=== PATIENT | female | born 1990 | race Caucasian/White ===

== ENCOUNTER → 2018-04-11 13:35 | Outpatient (CLI) | payer BC, SELFPAY ==
--- NOTE | 2018-04-11 13:47 | XR_ITS ---
EXAM: XR thoracic spine 3V HISTORY: Mid back pain, pain between the shoulder blades ITS.REASON: THORACIC SPINE PAIN, OBESITY Comparison: None FINDINGS: Normal alignment. No fracture or dislocation. No lytic or blastic change. No significant degenerative change. The disc spaces are preserved. IMPRESSION: Negative thoracic spine
== END ==
PROVIDERS: PCP Nurse Practitioner Family; Visit Provider Nurse Practitioner Family
DX: M54.6 Pain in thoracic spine (principal); E66.9 Obesity, unspecified
CPT/HCPCS: 72072

== ENCOUNTER 2018-10-07 15:53 | Outpatient (CLI) | payer BC, SELFPAY ==
[2018-10-07 16:02] VITALS: BP 118/80; PULSE 89; RESP 18; TEMP 36.5; O2SAT 98; BMI 38.4
== END 2018-10-07 16:35 | disposition home or self-care (01) ==
LOC: OBOUT 15:55 → OB 15:56
PROVIDERS: PCP Family Medicine; Visit Provider Obstetrics & Gynecology
DX: O36.8120 Decreased fetal movements, second trimester, not applicable or unspecified (principal); Z3A.24 24 weeks gestation of pregnancy; R51 Headache
CPT/HCPCS: 59025

== ENCOUNTER → 2018-10-30 13:52 | Outpatient (CLI) | payer BC, SELFPAY ==
[2018-10-30 15:13] LABS: Glucose 1 Hour 118 mg/dL (74-106)
== END ==
PROVIDERS: Visit Provider Obstetrics & Gynecology
DX: Z34.90 Encounter for supervision of normal pregnancy, unspecified, unspecified trimester (principal)
CPT/HCPCS: 36415

== ENCOUNTER 2018-11-08 15:27 | Outpatient (CLI) | payer BC, SELFPAY ==
[2018-11-08 15:44] VITALS: BP 121/84; PULSE 101; RESP 20; TEMP 36.7; O2SAT 100; BMI 41.5
[2018-11-08 15:57] LABS: Microscopic, Urine URINE MICROSCOPIC (MICROSCOPIC)
[2018-11-08 15:59] LABS: Appearance,Urine CLEAR (Clear); Bilirubin,Urine Negative (Negative); Blood, Urine Negative (Negative); Color,Urine YELLOW (Yellow); Glucose,Urine (UA) Negative (Negative); Ketones,Urine TRACE (Negative); Leukocyte Esterase,Urine Negative (Negative); Nitrate,Urine Negative (Negative); Protein,Urine Negative (Negative); Specific Gravity, Urine 1.025 (1.005-1.030); Urobilinogen,Urine 0.2 EU/dl (0.2)
[2018-11-08 16:07] LABS: Amphetamine/Metha Screen,Urine Negative ng/mL (<1000); Barbiturates Screen,Urine Negative ng/mL (<200); Benzodiazepines Screen,Urine Negative ng/mL (<200); Cannabinoid Screen,Urine Negative ng/mL (<50); Cocaine Screen,Urine Negative ng/mL (<300); Methadone Screen,Urine Negative ng/mL (<300); Opiate Screen,Urine Negative ng/mL (<300); Phencyclidine Screen,Urine Negative ng/mL (<25)
[2018-11-08 16:10] LABS: Bacteria,Urine 1+ /lpf; Mucus,Urine 1+ /lpf
--- NOTE | 2018-11-08 16:22 | ECG_ITS ---
APPROVED REPORT Exam: Resting ECG HR:96 bpm ECG Measurements Heart Rate 96 AXES CO 134 P 22 QRSd 68 QRS 12 QT 340 T 14 QTc 429 <Conclusion> Normal sinus rhythm Minimal voltage criteria for LVH, may be normal variant Borderline ECG Electronically signed by : Jaylen Chaudhary, 11/09/2018 15:36:48
== END 2018-11-08 16:30 | disposition home or self-care (01) ==
LOC: OBOUT 15:36 → OB 15:36
PROVIDERS: PCP Family Medicine; Visit Provider Obstetrics & Gynecology
DX: O36.8390 Maternal care for abnormalities of the fetal heart rate or rhythm, unspecified trimester, not applicable or unspecified (principal); Z3A.29 29 weeks gestation of pregnancy
CPT/HCPCS: 59025; 80305; 81001; 87086; 93005

== ENCOUNTER → 2018-11-13 13:53 | Outpatient (CLI) | payer BC, SELFPAY ==
--- NOTE | 2018-11-13 13:57 | XR_ITS ---
PROCEDURE: XR ANKLE WT BEARING RT MIN 3V CLINICAL INDICATION: fracture/dislocation Follow-up fracture/pain COMPARISON: XR ANKLE RT MIN 3V from 10/15/2018 FINDINGS: No change in the minimally distracted avulsion fracture at the tip of the lateral malleolus. Soft tissue swelling appears somewhat less compared to the previous exam. IMPRESSION: Decreased soft tissue swelling otherwise no change in the minimally distracted avulsion fracture at the tip of the lateral malleolus. Fracture line is still visible Dictated by: Hai Thomas MD 11/13/2018 17:38 Electronically signed by Hai Thomas MD in [facility] 11/13/2018 17:38
== END ==
PROVIDERS: PCP Ophthalmology; Visit Provider Podiatrist
DX: S82.61XA Displaced fracture of lateral malleolus of right fibula, initial encounter for closed fracture (principal)
CPT/HCPCS: 73610

== ENCOUNTER → 2018-12-01 15:58 | Outpatient (CLI) | payer BC, SELFPAY ==
[2018-12-01 16:19] LABS: Basophils # 0.1 K/mm3 (0-0.2); Basophils % 0.5 % (0.1-2.0); Eosinophils # 0.3 K/mm3 (0.0-0.4); Eosinophils % 3.2 % (0.1-12.0); Hematocrit 37.1 % (37.0-47.0); Hemoglobin 11.4 g/dL (12.2-16.2); Lymphocytes # 2.7 K/mm3 (0.7-4.5); Lymphocytes % 24.9 % (10-50); Mean Corpuscular HGB Conc 30.8 g/dL (31.8-35.4); Mean Corpuscular Hemoglobin 27.2 pg (27.0-31.2); Mean Corpuscular Volume 88.4 fl (81-99); Mean Platelet Volume 12.3 fl (7.4-10.4); Monocytes # 0.5 K/mm3 (0.1-1.0); Monocytes % 4.2 % (1.7-9.3); Neutrophils # 7.2 K/mm3 (1.8-7.8); Neutrophils % 67.2 % (37.0-80.0); Platelet Count 171 K/mm3 (142-424); Red Cell Distribution Width 13.9 % (11.5-17.5); White Blood Count 10.7 K/mm3 (4.8-10.8)
[2018-12-01 17:11] LABS: Fibrinogen 500 mg/dL (204-500); Prothrombin Time 9.4 seconds (9.4-11.8)
[2018-12-01 17:23] LABS: D-Dimer 802 ng/mL (0-400)
[2018-12-01 18:32] LABS: Alanine Aminotransferase 42 U/L (12-78); Anion Gap 14.1 mEq/L (5-15); Aspartate Amino Transferase 27 U/L (15-37); Blood Urea Nitrogen 8 mg/dL (7-18); Calcium 8.4 mg/dL (8.5-10.1); Carbon Dioxide 23 mmol/L (21.0-32.0); Chloride 105 mmol/L (98-107); Creatinine,Serum 0.49 mg/dL (0.55-1.02); Estimated Glomerular Filt Rate 149 ml/min (>60); GFR (African American) 181 ML/MIN (>60); Glucose 86 mg/dL (74-106); Potassium 4.1 mmoL/L (3.5-5.1); Sodium 138 mmol/L (136-145); Uric Acid 2.9 mg/dL (2.6-7.2)
== END ==
PROVIDERS: Visit Provider Obstetrics & Gynecology
DX: Z34.90 Encounter for supervision of normal pregnancy, unspecified, unspecified trimester (principal)
CPT/HCPCS: 36415; 80048; 84450; 84460; 84550; 85025; 85378; 85384; 85610; 85730

== ENCOUNTER → 2018-12-06 10:38 | Outpatient (CLI) | payer BC, SELFPAY ==
[2018-12-06 16:00] LABS: Total Protein 24 Hour,Urine 285 mg/24 hr (40-90); Total Volume,Urine 1500 mL (600-1600)
== END ==
PROVIDERS: Visit Provider Obstetrics & Gynecology
DX: Z34.90 Encounter for supervision of normal pregnancy, unspecified, unspecified trimester (principal)
CPT/HCPCS: 84155

== ENCOUNTER → 2018-12-11 11:21 | Outpatient (CLI) | payer BC, SELFPAY | PROVIDERS: Visit Provider Obstetrics & Gynecology | DX: Z34.90 Encounter for supervision of normal pregnancy, unspecified, unspecified trimester (principal) | CPT/HCPCS: 86403 ==

== ENCOUNTER 2018-12-16 14:22 | Inpatient (IN) ==
[2018-12-16 15:34] LABS: Basophils # 0.1 K/mm3 (0-0.2); Basophils % 0.6 % (0.1-2.0); Eosinophils # 0.3 K/mm3 (0.0-0.4); Eosinophils % 3.2 % (0.1-12.0); Hematocrit 36.6 % (37.0-47.0); Hemoglobin 12.2 g/dL (12.2-16.2); Lymphocytes # 2.8 K/mm3 (0.7-4.5); Lymphocytes % 25.4 % (10-50); Mean Corpuscular HGB Conc 33.3 g/dL (31.8-35.4); Mean Corpuscular Volume 85.6 fl (81-99); Mean Platelet Volume 13.2 fl (7.4-10.4); Monocytes # 0.5 K/mm3 (0.1-1.0); Monocytes % 4.3 % (1.7-9.3); Neutrophils # 7.3 K/mm3 (1.8-7.8); Neutrophils % 66.4 % (37.0-80.0); Platelet Count 143 K/mm3 (142-424); Red Blood Count 4.28 M/mm3 (4.20-5.40); Red Cell Distribution Width 13.4 % (11.5-17.5); White Blood Count 10.9 K/mm3 (4.8-10.8)
[2018-12-16 15:42] LABS: Anion Gap 12.6 mEq/L (5-15); Calcium 8.5 mg/dL (8.5-10.1); Uric Acid 3.4 mg/dL (2.6-7.2)
--- NOTE | 2018-12-16 16:01 | Progress Note ---
Internal Medicine - PN: Subj *Date: 12/16/18 *Time: 15:58 (This 28-year-old 3, para 2, Ab0 white female with 2 pre vious sections (both early and emergent due to PIH) presented to the office with signs and symptoms of preeclampsia. Her blood pressure was 150/100. She is 34-6/7 weeks today. She is complaining of lower abdominal pain, although contractions are not evident. Her cervix is 50% and closed, with the presenting vertex high. Bag of water is intact. She has been admitted for intravenous magnesium sulfate, steroids, PIH labs, and biophysical profile. Initial plan is to observe. Patient understands the possible need for early delivery.) Exam Vital signs and Labs for Last 24 Hours: Temp Pulse Resp BP Pulse Ox 98.5 F 99 H 18 134/72 97 12/16/18 14:51 12/16/18 14:51 12/16/18 14:51 12/16/18 14:51 12/16/18 14:51 Laboratory Results - last 24 hr 12/16/18 15:08: WBC 10.9 H, RBC 4.28, Hgb 12.2, Hct 36.6 L, MCV 85.6, MCH 28.5, MCHC 33.3, RDW 13.4, Plt Count 143, MPV 13.2 H, Neut % (Auto) 66.4, Lymph % (Auto) 25.4, [place] % (Auto) 4.3, Eos % (Auto) 3.2, Baso % (Auto) 0.6, Neut # (Auto) 7.3, Lymph # (Auto) 2.8, [place] # (Auto) 0.5, Eos # (Auto) 0.3, Baso # (Auto) 0.1 12/16/18 15:08: D-Dimer 950 H* 12/16/18 15:08: Sodium 139, Potassium 3.6, Chloride 107, Carbon Dioxide 23, Anion Gap 12.6, BUN 5 L, Creatinine 0.41 L, Estimated Creat Clear 320 H, Estimated GFR 183, Est GFR ( Amer) 222, Glucose 88, Uric Acid 3.4, Calcium 8.5, AST 24, ALT 41 I & O for Last 24 hours: Intake & Output 12/14/18 12/15/18 12/16/18 12/17/18 11:59 11:59 11:59 11:59 Weight 221 lb
[2018-12-16 16:22] LABS: Activated Partial Thrombo Time 27.5 seconds (23.6-34.0); INR 0.9 (0.9-1.1); Prothrombin Time 9.4 seconds (9.4-11.8)
[2018-12-16 20:57] LABS: Microscopic, Urine URINE MICROSCOPIC (MICROSCOPIC)
[2018-12-16 21:05] LABS: Appearance,Urine CLEAR (Clear); Bilirubin,Urine Negative (Negative); Blood, Urine Negative (Negative); Color,Urine YELLOW (Yellow); Glucose,Urine (UA) Negative (Negative); Ketones,Urine 2+ (Negative); Leukocyte Esterase,Urine Negative (Negative); PH,Urine 6.5 (5.0-8.5); Protein,Urine Negative (Negative); Specific Gravity, Urine >= 1.030 (1.005-1.030); Urobilinogen,Urine 0.2 EU/dl (0.2)
[2018-12-16 21:12] LABS: Bacteria,Urine Trace /lpf; WBC,Urine Occasional #/hpf (0-3)
[2018-12-16 21:19] LABS: Amphetamine/Metha Screen,Urine Negative ng/mL (<1000); Barbiturates Screen,Urine Negative ng/mL (<200); Benzodiazepines Screen,Urine Negative ng/mL (<200); Cannabinoid Screen,Urine Negative ng/mL (<50); Cocaine Screen,Urine Negative ng/mL (<300); Methadone Screen,Urine Negative ng/mL (<300); Opiate Screen,Urine Negative ng/mL (<300); Phencyclidine Screen,Urine Negative ng/mL (<25)
--- NOTE | 2018-12-17 09:03 | Progress Note ---
Internal Medicine - PN: Subj *Date: 12/17/18 *Time: 08:59 Exam Vital signs and Labs for Last 24 Hours: Temp Pulse Resp BP Pulse Ox 97.7 F 85 20 137/87 97 12/17/18 07:30 12/17/18 07:30 12/17/18 07:30 12/17/18 08:45 12/17/18 03:37 Laboratory Results - last 24 hr 12/16/18 15:08: WBC 10.9 H, RBC 4.28, Hgb 12.2, Hct 36.6 L, MCV 85.6, MCH 28.5, MCHC 33.3, RDW 13.4, Plt Count 143, MPV 13.2 H, Neut % (Auto) 66.4, Lymph % (Auto) 25.4, [place] % (Auto) 4.3, Eos % (Auto) 3.2, Baso % (Auto) 0.6, Neut # (Auto) 7.3, Lymph # (Auto) 2.8, [place] # (Auto) 0.5, Eos # (Auto) 0.3, Baso # (Auto) 0.1 12/16/18 15:08: PT 9.4, INR 0.90, APTT 27.5, Fibrinogen 500, D-Dimer 950 H* 12/16/18 15:08: Sodium 139, Potassium 3.6, Chloride 107, Carbon Dioxide 23, Anion Gap 12.6, BUN 5 L, Creatinine 0.41 L, Estimated Creat Clear 320 H, Estimated GFR 183, Est GFR ( Amer) 222, Glucose 88, Uric Acid 3.4, Calcium 8.5, AST 24, ALT 41 12/16/18 15:08: Blood Type O Positive, Antibody Screen Negative 12/16/18 15:08: Magnesium 1.5 12/16/18 20:40: Urine Opiates Screen Negative, Urine Methadone Screen Negative, Ur Barbituates Screen Negative, Ur Phencyclidine Scrn Negative, Ur Amphetamines Screen Negative, U Benzodiazepines Scrn Negative, Urine Cocaine Screen Negative, U Marijuana (THC) Screen Negative 12/16/18 20:50: Urine Color Yellow, Urine Appearance Clear, Urine pH 6.5, Ur Specific [place] >= 1.030, Urine Protein Negative, Urine Glucose (UA) Negative, Urine Ketones 2+, Urine Blood Negative, Urine Nitrate Negative, Urine Bilirubin Negative, Urine Urobilinogen 0.2, Ur Leukocyte Esterase Negative, Urine WBC Occasional, Ur Squamous Epith Cells 3-5, Urine Bacteria Trace 12/17/18 05:55: Magnesium 4.9 H D I & O for Last 24 hours: Intake & Output 12/14/18 12/15/18 12/16/18 12/17/18 11:59 11:59 11:59 11:59 Intake Total 1500 / 1500 Output Total 3000 / 3000 Balance -1500 / -1500 Weight 221 lb
--- OUTSIDE RECORDS SUMMARY | 2018-12-17 14:29 | External Medical Summary | Continuity of Care Document ---
:1990 Author Organization [facility] Address [address] [facility] [address] [place] [address] Phone Care Team Providers Name Role Phone Morales Attending Provider Mona Tran Primary Care Provider Chelita Attending Provider Soren Soto II Primary Care Provider Allergies, Adverse Reactions, Alerts No known allergies. Medications No known medications. Problems Active Problems Medical Problem Onset Date Status Avulsion fracture of lateral malleolus A ctive Procedures Procedure Date Performed Status Group B Streptococcus Screen (PRASANNA) December 11, 2018 compl eted US OB BPP w/Fet-Mat & S/D December 17, 2018 active XR ankle wt bearing RT min 3V November 13, 2018 completed XR ankle RT min 3V October 15, 2018 completed Relevant Diagnostic Tests and/or Laboratory Data Laboratory Results Test Date/Time Result Interpretation Reference Result Perfo rming Range Comment Site Urine Color September Yellow 2018 3:43pm Urine Color October Dark Yellow 2018 3:33pm Urine Color October 1:40pm Urine Color November Yellow 2018 3:37pm Urine Color November 1:54pm Urine E[place] G[place] Clear Appearance 2018 3:43pm Urine Janet Clear Appearance 2018 3:33pm Urine Janet Clear Appearance 2018 1:40pm Urine October Clear Appearance 2018 3:37pm Urine October Clear Appearance 2018 1:54pm Urine Glucose [place] Negative (UA) 2018 3:43pm Urine Glucose Janet Negative (UA) 2018 3:33pm Urine Glucose Janet Negative (UA) 2018 1:40pm Urine Glucose October Negative (UA) 2018 3:37pm Urine Glucose October Negative (UA) 2018 1:54pm Urine Bilirubin [place] negative 2018 3:43pm Urine Bilirubin Janet negative 2018 3:33pm Urine Bilirubin Janet negative 2018 1:40pm Urine Bilirubin October negative 2018 3:37pm Urine Bilirubin October negative 2018 1:54pm Urine Ketones [place] Negative 2018 mg/dL 3:43pm Urine Ketones Janet Negative 2018 mg/dL 3:33pm Urine Ketones Janet Negative 2018 mg/dL 1:40pm Urine Ketones October Negative 2018 mg/dL 3:37pm Urine Ketones October Negative 2018 mg/dL 1:54pm Urine Specific E[place] Gentry 1.015 [place] 2018 3:43pm Urine Specific Janet 1.030 [place] 2018 3:33pm Urine Specific Janet 1.020 [place] 2018 1:40pm Urine Specific October 1.015 [place] 2018 3:37pm Urine Specific October 1.015 [place] 2018 1:54pm Urine Blood E[place] negative 2018 3:43pm Urine Blood Janet negative 2018 3:33pm Urine Blood Janet negative 2018 1:40pm Urine Blood October negative 2018 3:37pm Urine Blood October negative 2018 1:54pm Urine pH E[place] 7.0 2018 3:43pm Urine pH Janet 6.0 2018 3:33pm Urine pH Janet 6.5 2018 1:40pm Urine pH October 7.0 2018 3:37pm Urine pH October 7.5 2018 1:54pm Urine Protein September Negative 2018 3:43pm Urine Protein October Negative 2018 3:33pm Urine Protein Janet Negative 2018 1:40pm Urine Protein October Negative 2018 3:37pm Urine Protein October Negative 2018 1:54pm Urine E[place] 0.2 Urobilinogen 2018 Dipstick 3:43pm Urine Janet 1 Urobilinogen 2018 Dipstick 3:33pm Urine Janet 0.2 Urobilinogen 2018 Dipstick 1:40pm Urine October 0.2 Urobilinogen 2018 Dipstick 3:37pm Urine October 0.2 Urobilinogen 2018 Dipstick 1:54pm Urine Nitrate [place] Negative 2018 3:43pm Urine Nitrate Janet Negative 2018 3:33pm Urine Nitrate Janet Negative 2018 1:40pm Urine Nitrate October Negative 2018 3:37pm Urine Nitrate October Negative 2018 1:54pm Urine Leukocyte [place] Negative Esterase 2018 3:43pm Urine Leukocyte Janet Negative Esterase 2018 3:33pm Urine Leukocyte Janet Negative Esterase 2018 1:40pm Urine Leukocyte October Negative Esterase 2018 3:37pm Urine Leukocyte October Negative Esterase 2018 1:54pm White Blood October 10.7 K/mm3 4.8-10.[address] 36 E Count 2018 3:59pm [place] [address] White Blood October 10.9 K/mm3 4.8-10.[address] 36 E Count 2018 3:08pm [place] [address] Red Blood Count November 4.20 M/mm3 4.20-5.[address] 36 E 2018 3:59pm [place] [address] Red Blood Count October 4.28 M/mm3 4.20-5.[address] 36 E 2018 3:08pm [place] [address] Hemoglobin October 11.4 g/dL 12.2-16.[address] 36 E 2018 3:59pm [place] [address] Hemoglobin October 12.2 g/dL 12.2-16.[address] 36 E 2018 3:08pm [place] [address] Hematocrit October 37.1 % 37.0-47.0 [place] [address] [place] [address] E 2018 3:59pm [place] [address] Hematocrit October 36.6 % 37.0-47.0 [facility], [address] [place] [address] E 2018 3:08pm [place] [address] Mean October 88.4 fl -99 [facility], [address] [place] [address] E Corpuscular 2018 Volume 3:59pm [place] [address] Mean October 85.6 fl -99 [facility], [address] [place] [address] E Corpuscular 2018 Volume 3:08pm [place] [address] Mean November 27.2 pg 27.0-31.2 [facility], [address] [place] [address] E Corpuscular 2018 Hemoglobin 3:59pm [place] [address] Mean November 28.5 pg 27.0-31.2 [facility], [address] [place] [address] E Corpuscular 2018 Hemoglobin 3:08pm [place] [address] Mean November 30.8 g/dL 31.8-35.4 [facility], [address] [place] [address] E Corpuscular 2018 Hemoglobin 3:59pm [place] [address] Concent Mean October 33.3 g/dL 31.8-35.4 [facility], [address] [place] [address] E Corpuscular 2018 Hemoglobin 3:08pm [place] [address] Concent Red Cell November 13.9 % 11.5-17.5 [facility], [address] [place] [address] E Distribution 2018 Width 3:59pm [place] [address] Red Cell October 13.4 % 11.5-17.5 [facility], [address] [place] [address] E Distribution 2018 Width 3:08pm [place] [address] Platelet Count November 171 K/mm3 142-424 [facility], [address] [place] [address] E 2018 3:59pm [place] [address] Platelet Count November 143 K/mm3 142-424 [facility], [address] [place] [address] E 2018 3:08pm [place] [address] Mean Platelet November 12.3 fl 7.4-10.4 [facility], [address] [place] [address] E Volume 2018 3:59pm [place] [address] Mean Platelet November 13.2 fl 7.4-10.4 [facility], [address] [place] [address] E Volume 2018 3:08pm [place] [address] Neutrophils (%) November 67.2 % 37.0-80.0 [facility], [address] [place] [address] E (Auto) 2018 3:59pm [place] [address] Neutrophils (%) November 66.4 % 37.0-80.0 [facility], [address] [place] [address] E (Auto) 2018 3:08pm [place] [address] Lymphocytes (%) November 24.9 % [address] [place] [address] E (Auto) 2018 3:59pm [place] [address] Lymphocytes (%) November 25.4 % [address] [place] [address] E (Auto) 2018 3:08pm [place] [address] Monocytes (%) November 4.2 % 1.7-9.3 [facility], [address] [place] [address] E (Auto) 2018 3:59pm [place] [address] Monocytes (%) November 4.3 % 1.7-9.3 [place] [address] E (Auto) 2018 3:08pm [place] [address] Eosinophils (%) November 3.2 % 0.1-12.0 [place] [address] E (Auto) 2018 3:59pm [place] [address] Eosinophils (%) November 3.2 % 0.1-12.0 [facility], [address] [place] [address] E (Auto) 2018 3:08pm [place] [address] Basophils (%) November 0.5 % 0.1-2.0 [place] [address] E (Auto) 2018 3:59pm [place] [address] Basophils (%) November 0.6 % 0.1-2.0 [facility], [address] [place] [address] E (Auto) 2018 3:08pm [place] [address] Neutrophils # November 7.2 K/mm3 1.8-7.8 [facility], [address] [place] [address] E (Auto) 2018 3:59pm [place] [address] Neutrophils # November 7.3 K/mm3 1.8-7.8 [facility], [address] [place] [address] E (Auto) 2018 3:08pm [place] [address] Lymphocytes # November 2.7 K/mm3 0.7-4.5 [facility], [address] [place] [address] E (Auto) 2018 3:59pm [place] [address] Lymphocytes # November 2.8 K/mm3 0.7-4.5 [facility], [address] [place] [address] E (Auto) 2018 3:08pm [place] [address] Monocytes # November 0.5 K/mm3 0.1-1.0 [facility], [address] [place] [address] E (Auto) 2018 3:59pm [place] [address] Monocytes # October 0.5 K/mm3 0.1-1.0 [facility], [address] [place] [address] E (Auto) 2018 3:08pm [place] [address] Eosinophils # November 0.3 K/mm3 0.0-0.4 [facility], [address] [place] [address] E (Auto) 2018 3:59pm [place] [address] Eosinophils # October 0.3 K/mm3 0.0-0.4 [facility], [address] [place] [address] E (Auto) 2018 3:08pm [place] [address] Basophils # October 0.1 K/mm3 0-0.2 [facility], [address] [place] [address] E (Auto) 2018 3:59pm [place] [address] Basophils # October 0.1 K/mm3 0-0.2 [facility], [address] [place] [address] E (Auto) 2018 3:08pm [place] [address] Prothrombin October 9.4 seconds 9.4-11.8 [facility], [address] [place] [address] E Time 2018 3:59pm [place] [address] Prothrombin November 9.4 seconds 9.4-11.8 [facility], [address] [place] [address] E Time 2018 3:08pm [place] [address] Prothromb Time November 0.90 0.9-1.1 [facility], [address] [place] [address] E International 2018 INDICATION Ratio 3:59pm [place] [address] INR RANGETherapy for DVT, PE, Atrial Fib, 2.0-3.0Prophy laxis for VTE.Therapy for Mechanical Heart Valve, 2.5-3.5Preven tion of Sytemic Emolism secondary to AMI. Prothromb Time November 0.90 0.9-1.1 [facility], [address] [place] [address] E International 2018 INDICATION Ratio 3:08pm [place] [address] INR RANGETherapy for DVT, PE, Atrial Fib, 2.0-3.0Prophy laxis for VTE.Therapy for Mechanical Heart Valve, 2.5-3.5Preven tion of Sytemic Emolism secondary to AMI. Activated November 28.0 23.6-34.0 [facility], [address] [place] [address] E Partial 2018 seconds Thromboplast 3:59pm [place] [address] Time Activated November 27.5 23.6-34.0 [facility], [address] [place] [address] E Partial 2018 seconds Thromboplast 3:08pm [place] [address] Time Fibrinogen November 500 mg/dL 204-500 [facility], [address] [place] [address] E 2018 3:59pm [place] [address] Fibrinogen November 500 mg/dL 204-500 [facility], [address] [place] [address] E 2018 3:08pm [place] [address] D-Dimer November 802 ng/mL 0-400 RESULTS [place] [address] E 2018 CALLED TO 3:59pm MORALES @BY [place] [address] Chantell Burnette at 1720 D-Dimer November 950 ng/mL 0-400 RESULTS [place] [address] [place] [address] 2018 CALLED TO 3:08pm [place] [address] JAME BOSCH @BY Elisa Christensen MLS at 1554 Urine Color October Yellow Yellow [facility], [address] [place] [address] 36 E 2018 8:50pm [place] [address] Urine October Clear Clear [facility], [address] [place] [address] E Appearance 2018 8:50pm [place] [address] Urine pH October 6.5 5.0-8.5 [facility], [address] [place] [address] 36 E 2018 8:50pm [place] [address] Urine Specific October >= 1.030 1.005-1.03 [facility], [address] [place] [address] E [place] 2018 0 8:50pm [place] [address] Urine Protein October Negative Negative [facility], [address] [place] [address] 36 E 2018 8:50pm [place] [address] Urine Glucose October Negative Negative [facility], [address] [place] [address] 36 E (UA) 2018 8:50pm [place] [address] Urine Ketones November 2+ Negative [facility], [address] [place] [address] 36 E 2018 8:50pm [place] [address] Urine Blood October Negative Negative [facility], [address] [place] [address] 36 E 2018 8:50pm [place] [address] Urine Nitrate October Negative Negative [facility], [address] [place] [address] 36 E 2018 8:50pm [place] [address] Urine Bilirubin October Negative Negative [facility], [address] [place] [address] 36 E 2018 8:50pm [place] [address] Urine October 0.2 EU/dl [facility], [address] [place] [address] 36 E Urobilinogen 2018 8:50pm [place] [address] Urine Leukocyte October Negative Negative [facility], [address] [place] [address] 36 E Esterase 2018 8:50pm [place] [address] Urine WBC October Occasional [facility], [address] [place] [address] 36 E 2018 #/hpf 8:50pm [place] [address] Urine Squamous October 3-5 #/hpf [facility], [address] [place] [address] E Epithelial 2018 Cells 8:50pm [place] [address] Urine Bacteria November Trace /lpf NONE [facility], [address] [place] [address] E 2018 8:50pm [place] [address] Urine Total November 1499 mL 600-1600 [facility], [address] [place] [address] E Volume 2018 8:30am [place] [address] Urine Total November 285 mg/24 40-90 [facility], [address] [place] [address] E Protein 24 Hour 2018 hr 8:30am [place] [address] Urine Total November 19.0 mg/dL 0.0-11.9 [facility], [address] [place] [address] E Protein 2018 8:30am [place] [address] Sodium Level November 138 mmol/L 136-145 [facility], [address] [place] [address] E 2018 3:59pm [place] [address] Sodium Level November 139 mmol/L 136-145 [facility], [address] [place] [address] E 2018 3:08pm [place] [address] Potassium Level November 4.1 mmoL/L 3.5-5.1 [facility], [address] [place] [address] E 2018 3:59pm [place] [address] Potassium Level November 3.6 mmoL/L 3.5-5.1 [facility], [address] [place] [address] E 2018 3:08pm [place] [address] Chloride Level November 105 mmol/L 98-107 [facility], [address] [place] [address] E 2018 3:59pm [place] [address] Chloride Level November 107 mmol/L 98-107 [facility], [address] [place] [address] E 2018 3:08pm [place] [address] Carbon Dioxide November 23 mmol/L 21.0-32.0 [facility], [address] [place] [address] E Level 2018 3:59pm [place] [address] Carbon Dioxide November 23 mmol/L 21.0-32.0 [facility], [address] [place] [address] E Level 2018 3:08pm [place] [address] Anion Gap November 14.1 mEq/L 07-02 [facility], [address] [place] [address] E 2018 3:59pm [place] [address] Anion Gap November 12.6 mEq/L 07-02 [facility], [address] [place] [address] 36 E 2018 3:08pm [place] [address] Blood Urea October 8 mg/dL 09-04 [facility], [address] [place] [address] E Nitrogen 2018 3:59pm [place] [address] Blood Urea October 5 mg/dL 09-04 [facility], [address] [place] [address] E Nitrogen 2018 3:08pm [place] [address] Creatinine October 0.49 mg/dL 0.55-1.02 [facility], [address] [place] [address] E 2018 3:59pm [place] [address] Creatinine October 0.41 mg/dL 0.55-1.02 [facility], [address] [place] [address] E 2018 3:08pm [place] [address] Estimated October 320 mL/min 0-300 [facility], [address] [place] [address] E Creatinine 2018 Clearance 3:08pm [place] [address] Estimated GFR November 181 ML/MIN >59 [facility], [address] [place] [address] E ( 2018 Honduran) 3:59pm [place] [address] Estimated GFR November 222 ML/MIN >59 [facility], [address] [place] [address] E ( 2018 Honduran) 3:08pm [place] [address] Estimat October 149 ml/min >59 [facility], [address] [place] [address] E Glomerular 2018 Filtration Rate 3:59pm [place] [address] Estimat October 183 ml/min >59 [facility], [address] [place] [address] E Glomerular 2018 Filtration Rate 3:08pm [place] [address] Glucose Level October 86 mg/dL 74-106 [facility], [address] [place] [address] E 2018 3:59pm [place] [address] Glucose Level November 88 mg/dL 74-106 [facility], [address] [place] [address] E 2018 3:08pm [place] [address] Glucose 1 Hour October 118 mg/dL 74-106 [facility], [address] [place] [address] 36 E 2018 1:53pm [place] [address] Uric Acid November 2.9 mg/dL 2.6-7.2 [facility], [address] [place] [address] E 2018 3:59pm [place] [address] Uric Acid November 3.4 mg/dL 2.6-7.2 [facility], [address] [place] [address] E 2018 3:08pm [place] [address] Calcium Level November 8.4 mg/dL 8.5-10.1 [facility], [address] [place] [address] E 2018 3:59pm [place] [address] Calcium Level November 8.5 mg/dL 8.5-10.1 [facility], [address] [place] [address] 36 E 2018 3:08pm [place] [address] Magnesium Level November 4.9 mg/dL 1.4-2.2 Delta: 1.5 on [facility], [address] [place] [address] 36 E 201812/16/18-1508 5:55am [place] [address] Aspartate Amino October 27 U/L [facility], [address] [place] [address] E Transf 2018 (AST/SGOT) 3:59pm [place] [address] Aspartate Amino November 24 U/L [facility], [address] [place] [address] 36 E Transf 2018 (AST/SGOT) 3:08pm [place] [address] Alanine November 42 U/L [facility], [address] [place] [address] E Aminotransferas 2018 e (ALT/SGPT) 3:59pm [place] [address] Alanine November 41 U/L [facility], [address] [place] [address] E Aminotransferas 2018 e (ALT/SGPT) 3:08pm [place] [address] Urine Opiates October Negative [facility], [address] [place] [address] E Screen 2018 ng/mL 8:40pm [place] [address] Urine October Negative [facility], [address] [place] [address] 36 E Barbituates 2018 ng/mL Screen 8:40pm [place] [address] Urine November Negative [facility], [address] [place] [address] 36 E Phencyclidine 2018 ng/mL Screen 8:40pm [place] [address] Urine November Negative [facility], [address] [place] [address] 36 E Amphetamines 2018 ng/mL Screen 8:40pm [place] [address] Urine Methadone November Negative [facility], [address] [place] [address] E Screen 2018 ng/mL 8:40pm [place] [address] Urine November Negative [facility], [address] [place] [address] E Benzodiazepines 2018 ng/mL Screen 8:40pm [place] [address] Urine Cocaine November Negative [facility], [address] [place] [address] E Screen 2018 ng/mL 8:40pm [place] [address] Urine Marijuana November Negative [facility], [address] [place] [address] E (THC) Screen 2018 ng/mL 8:40pm [place] [address] Microbiology Results Procedure Source Result Collection Result Result Performin g Date/Time Date/Time Comment Site Group B Vaginal Negative for December 11November [facility], [address] [place] [address] E Streptococcus Group B 2018 10:11am 2018 Screen (PRASANNA) Streptococcu 6:49am [place] [address] s. Diagnostic Imaging Reports Report Dictated Date/Time Dictated By Status Radiology Report October 15, 2018 7:50pm Hai Thomas MD comple [address] [place] [address] XRay R eport Sig xavi Patient: Carissa Cruz R#: [id number] : 1990 Acct:[id number] Age/Sex: 28 / F ADM Date: 9 Loc: [facility] Attending Dr: Ordering Physician: Danisha Lindsey APRN Date of Service: 10/15/18 Procedure(s): XR ankle RT min 3V Accession Number(s): [id number] cc: Hai Thomas MD; Livan Tran MD~ PROCEDURE: XR ANKLE RT MIN 3V CLINICAL INDICATION: fall Posttraumatic pain COMPARISON: No exams were available fo r comparison FINDINGS: Minimally displaced avulsion fracture i nvolves the tip of the lateral malleolus. There is 2 mm distraction o f the distal fracture fragment with overlying soft tissue swelling. IMPRESSION: Minimally distracted avulsion fracture at the tip of the lateral malleolus Dictated by: Hai Thomas MD 10/16/19 19 20:29 Signed by: <Electronically signed by Hai Thomas MD in [place]> 10/15/2018 20:29 Radiology Report November 13, 2018 2:07pm Hai Thomas MD [facility] [address] [place] [facility] [address] [place] [address] XRay R eport Sig xavi Patient: Carissa Cruz#: [id number] : 1990 Acct:[id number] Age/Sex: 28 / F ADM Date: 9 Loc: RAD Attending Dr: Lu Merlos DPM Ordering Physician: Lu Merlos DPM Date of Service: 11/13/18 Procedure(s): XR ankle wt bearing RT min 3V Accession Number(s): [id number] cc: Hai Thomas MD; John Soto II, MD~ PROCEDURE: XR ANKLE WT BEARING RT MIN 3V CLINICAL INDICATION: fracture/dislocat ion Follow-up fracture/pain COMPARISON: XR ANKLE RT MIN 3V from FINDINGS: No change in the minimally distracted a vulsion fracture at the tip of the lateral malleolus. Soft tissue swe lling appears somewhat less compared to the previous exam. IMPRESSION: Decreased soft tissue swelling otherwis e no change in the minimally distracted avulsion fracture at the tip of the lateral malleolus. Fracture line is still visible Dictated by: Hai Thomas MD 11/13/2018 17:38 Electronically signed by Hai Thomas in [place] 11/13/2018 17:38 Health Concerns Concerns PIH ANTEPARTUM Advance Directives Advance Directive Response Recorded Date/Time Does the patient have an advanced directive on No December 16, 2018 1:53pm file? Living Will No December 16, 2018 1 :53pm Does the patient have an advanced directive on No December 11, 2018 10:17am file? Living Will No December 11, 2018 1 0:17am Does the patient have an advanced directive on No October 28, 2018 3:36pm file? Living Will No October 28, 2018 3:36pm Does the patient have an advanced directive on No October 07, 2018 3:51pm file? Living Will No October 07, 2018 3: 51pm Does the patient have an advanced directive on No November 13, 2018 3:30pm file? Living Will No November 13, 2018 3:30pm Chief Complaint and Reason for Visit Chief Complaint NST right ankle ao fell in hole 3:00 10/15/2018 Ankle injury LAB WORK NST Due Date 01/21 rapid hear t rate, hotflashes Fracture/dislocation follow- up RT ANKLE WT BEARING, 3V, AO 10/15/18 LAB WORK LAB WORK LAB WORK nst, 35wks nst, 35wks Encounters Encounter Location(s) Arrival/Admit Date Discharge/Depart Date Provider(s) Departed [facility] Physician October 07, 2018 October 07, 2018 Giovani Nielsen Physician/[facility]-Just for 3:36pm 3:48pm MD vasquez Office Susan Visit Registered [facility] Physician October 07, 2018 October 07, 2018 Giovani Nielsen Inpatient Group-Just for 3:53pm 4:35pm MD Davis Departed [facility] Physician October 15, 2018 October 15, 2018 null Emergency Group-Urgent 7:28pm 8:33pm Treatment Center Departed [facility] Physician October 17, 2018 October 17, 2018 Alaina Merlos , Physician/[facility]-Podiatry 7:56am 10:28am DPM christ[facility] Visit Departed [facility] Physician October 28, October 28, 2018 Sebastien Nielsen Physician/[facility]Just for 2018 3:25pm 3:36pm MD vasquez Office Susan Visit Registered [facility] Physician October 30, Hardeep martinez , Clinical Group-Laboratory 2018 1:52pm MD Registered [facility] Physician November 08, November 08, 2018 Sebastien Nielsen Inpatient Group-Just for 2019 3:27pm 4:30pm MD Davis Departed [facility] Physician November 11, November 11, 2018 Sebastien Nielsen Physician/[facility]-Just for 2019 1:30pm 2:02pm MD christina Office [facility] Visit Departed [facility] Physician November 13, November 13, 2018 Golden Merlos , Physician/[facility]ry 2018 1:44pm 2:57pm D[facility] Visit Registered [facility] Physician November 13, Lu [facility] 2018 1:53pm DPM Departed [facility] Physician November 13, November 13, 2018 Sebastien Nielsen Physician/[facility] for 2018 2:49pm 3:29pm MD [facility] Visit Departed [facility] Physician November 14, November 14, 2018 Sebastien Nielsen Physician/[facility] for 2018 9:15am 9:45am MD [facility] Visit Departed [facility] Physician December 01, 2018 December 01, 2018 Surendra Nielsen Physician/[facility] for 3:27pm 3:43pm MD [facility] Visit Registered [facility] Physician December 01, 2018 Hardeep dixon [facility]Laboratory 3:58pm Departed [facility] Physician December 04, 2018 December 04, 2018 Surendra Nielsen Physician/[facility] for 3:26pm 3:55pm [facility] Visit Registered [facility] Physician December 06, 2018 Hardeep dixon [facility]Laboratory 10:38am Departed [facility] Physician December 08, 2018 December 08, 2018 Surendra Nielsen Physician/[facility] for 1:33pm 2:09pm [facility] Visit Departed [facility] Physician December 11, 2018 December 11, 2018 Surendra Nielsen Physician/[facility] for 10:05am 10:31am [facility] Visit Registered [facility] Physician December 11, 2018 Hardeep dixon [facility]-Lab Drop 11:21am MD Off to [facility] Departed [facility] Physician December 16, 2018 December 16, 2018 Surendra Nielsen Physician/[facility] 1:36pm 2:10pm MD [facility] Visit Registered [facility] Physician December 16, 2018 Hardeep dixon , Inpatient Group-Just for 2:22pm MD Davis Admitted [facility] Physician December 16, 2018 Hardeep dixon , Inpatient Group-Obstetric 2:23pm Registered [facility] Physician December 17, 2018 Hardeep dixon , Inpatient Group- 2:26pm MD Assessments See care plan goals Functional Status Observation Response Date Recorded Functional status ambulatory December 16, 2018 1 :53pm Oral Care Ability Independent December 16, 2018 1 :53pm Bathing Ability Independent December 16, 2018 1 :53pm Eating (Feeding) Ability Independent December 16 019 1:53pm Toileting Ability Independent December 16, 2018 1 :53pm Ambulation Ability Independent December 16, 2018 1 :53pm Functional status ambulatory December 11, 2018 1 0:17am Oral Care Ability Independent December 11, 2018 1 0:17am Bathing Ability Independent December 11, 2018 1 0:17am Eating (Feeding) Ability Independent December 11 019 10:17am Toileting Ability Independent December 11, 2018 1 0:17am Ambulation Ability Independent December 11, 2018 1 0:17am Functional status ambulatory December 08, 2018 2 :16pm Functional status ambulatory November 14, 2018 9:50am Functional status ambulatory December 01, 2018 3 :43pm Functional status ambulatory November 13, 2018 5:56pm Functional status ambulatory October 17, 2018 9: 16am Functional status ambulatory October 28, 2018 3:36pm Oral Care Ability Independent October 28, 2018 3:36pm Bathing Ability Independent October 28, 2018 3:36pm Eating (Feeding) Ability Independent October 28, 2018 3:36pm Toileting Ability Independent October 28, 2018 3:36pm Ambulation Ability Independent October 28, 2018 3:36pm Functional status ambulatory October 07, 2018 3: 51pm Oral Care Ability Independent October 07, 2018 3: 51pm Bathing Ability Independent October 07, 2018 3: 51pm Eating (Feeding) Ability Independent October 07 3:51pm Toileting Ability Independent October 07, 2018 3: 51pm Ambulation Ability Independent October 07, 2018 3: 51pm Functional status ambulatory December 04, 2018 3 :49pm Functional status ambulatory November 13, 2018 3:30pm Oral Care Ability Independent November 13, 2018 3:30pm Bathing Ability Independent November 13, 2018 3:30pm Eating (Feeding) Ability Independent November 13, 2018 3:30pm Toileting Ability Independent November 13, 2018 3:30pm Ambulation Ability Independent November 13, 2018 3:30pm Functional status ambulatory November 11, 2018 1:57pm Goals Acute Goals Nursing Diagnosis: Knowledge Deficit D isease/Condition Goal(s): Education of di sease process Instruction(s): Follow provider p karthik/instructions (See attached discharge education) Follow/up with primary care provider as instructed in discharge packet Nursing Diagnosis: Knowledge Deficit D isease/Condition Goal(s): Education of di sease process Instruction(s): Follow provider p karthik/instructions (See attached discharge education) Follow/up with primary care provider as instructed in discharge packet Immunizations Immunization Event Date Not Given Dose Allopathic Doctor Lot Number Va ccine Reason Number Informatio n Statement (VIS) Deta il Hepatitis B July 09, VIS not given Vaccine, 1999 adol/ped dosage Hepatitis B March VIS not given Vaccine, 2000 adol/ped dosage Hepatitis B September 17, VIS not given Vaccine, 2000 adol/ped dosage Measles, Mumps, July 09, VIS not given and Rubella 2000 Virus Vaccine Mental Status Observation Response Date Recorded Able to Read Yes December 16, 2018 2 :51pm Able to Write Yes December 16, 2018 2 :51pm Medical Equipment No Medical Equipment Information available Insurance Providers Guarantor Carissa Stephensonelle Anthony Address [address] [place] [id number] Contact Info. Home Phone: Payer Policy Id Coverage Id Subscriber's Subscriber Id Effective E xpiration Name Date Date Madeline [id number] Carissa Chang [id number] Joel Cruz 2012 Access Self Pay Self N/A Plan of Treatment Follow up as ordered by primary care provider X-rays 3 views right ankle taken 11/13 and compared to 10/15/2018, evaluated by myself. Report noted. X-rays were then reviewed and discussed with the patient. X-rays show avulsion fracture of the distal right lateral malleolus. Soft tissue swelling noted. She admits to not using the crutches. Patient has been WB in the fracture boot. 1. WB in fracture boot x 1-2 weeks 2. Ice and elevate for pain and swelling 3. NSAIDs as needed 4. Transition in 2 weeks to FWB in brace 5. Fitted and dispensed lace up ankle brace in office today 6. E-Rx given for physical therapy. PT to include: Stretching, strengthening, balance and range of motion. PT can include but is not limited to the following modalities: Ultrasound, electrical stimulation, iontophoresis, medicated patches, bracing and inserts. 7. F/u for re-evaluation in 6-8 weeks Work restrictions -Okay to return to work 11/17/2018 -Must be protected in fracture boot -Light duty: Desk/secretarial work I explained the mechanism of an ankle sprain. I explained that a Grade 1 ankle sprain is a mild injury involving microscopic tearing of collagen fibers and will heal without prolonged immobilization. Grade 2 sprains are moderate and involve partial/complete tears of some but not all collagen ligament fibers resulting in necessary immobilization and physical therapy. Grade 3 ankle sprains are severe and involve complete tear/rupture of the ligaments resulting in immobilization, longer duration of physical therapy and can lead to chronic ankle instability when not functionally rehabiliated. See above. X-rays 3 views right ankle taken 10/15/2018 evaluated by myself. Report noted. X-rays were then reviewed and discussed with the patient. X-rays show avulsion fracture of the distal right lateral malleolus. Soft tissue swelling noted. Patient has been compliant with NWB with crutches. Recommended treatment: 1. NWB in fracture boot 2. Ice and elevate for pain and swelling 3. NSAIDs as needed 4. Unna boot for swelling 5. F/u for re-xray in 4 weeks I explained the mechanism of an ankle sprain. I explained that a Grade 1 ankle sprain is a mild injury involving microscopic tearing of collagen fibers and will heal without prolonged immobilization. Grade 2 sprains are moderate and involve partial/complete tears of some but not all collagen ligament fibers resulting in necessary immobilization and physical therapy. Grade 3 ankle sprains are severe and involve complete tear/rupture of the ligaments resulting in immobilization, longer duration of physical therapy and can lead to chronic ankle instability when not functionally rehabiliated. 1. Has tall fracture boot and crutches 2. Ice, elevate, NSAIDs for pain and swelling 3. e-Rx Voltaren 1% gel 4. Hold stretching 5. Will need lace up ankle brace 6. Follow up in 4 weeks for re-xray right ankle Application of Unna boot in office today Future Tests Future scheduled test information is unavailable Pending Tests Pending diagnostic test information is unavailable Future Visits Future appointment information is unavailable Referrals to Other Providers Reason for Referral Referral Start Provider Provider Contact Demarco farias Address Date Information Admission to [facility] December 172018 [facility] Call office for Lu Merlos Work Phone: [employer] [phone] [place] [phone] Future Procedures Future procedure information is unavailable Future Medications Future medication information is unavailable Patient Instructions How to Do Kick Counts Antepartum Care How to Use Crutches DI for Avulsion Fracture How To Perform RICE (Rest, Ice, Compress , Elevate) How to Use a Walking Boot DI for Dependent Edema Antepartum Care Diet Balanced Diet Diet DI for Dependent Edema Diet Diet Diet Diet Diet Diet Diet Pre-eclampsia and -induced Hype rtension (Alternative Therapy) Pre-eclampsia How to Do Kick Counts Antepartum Care Social History Observation Status Date of Observation Patient currently October 15, 2018 Assigned Sex Female Vital Signs Vital Reading Result Reference Range Collection Date/ Time Height 154.94 cm October 07 2:24pm Weight 97.69 kg October 07 2:24pm Body Temperature 98.2 [degF] 97.6-99.6 October 07 2:24pm Heart Rate 72 /min 60-October 07 2:24pm BP Systolic 130 mm[Hg] 110-140 October 07 2:24pm BP Diastolic 74 mm[Hg] 60-90 October 07 2:24pm BMI (Body Mass Index) 40.6 kg/m2 September 2:24pm Height 157.48 cm October 07 4:02pm Weight 95.25 kg October 07 4:02pm Body Temperature 97.7 [degF] 97.6-99.6 October 07 4:02pm Heart Rate 89 /min 60-90 October 07 4:02pm Respiratory rate 18 /min 12-24 Ewa Gentry 20th, 20 19 4:02pm Oxygen saturation by Pulse 98 % 95-100 t 2018 4:02pm oximetry BP Systolic 118 mm[Hg] 110-140 October 07, 201 9 4:02pm BP Diastolic 80 mm[Hg] 60-90 October 07 201 9 4:02pm BMI (Body Mass Index) 38.4 kg/m2 September 4:02pm Height 156.21 cm October 15, 9 7:43pm Weight 95.25 kg October 15 9 7:43pm Body Temperature 99 [degF] 97.6-99.6 October 15 8:23pm Heart Rate 100 /min 60-October 15 9 8:23pm Respiratory rate 18 /min -October 15 8:23pm Oxygen saturation by Pulse 94 % 95-100 t 2018 7:43pm oximetry BP Systolic 123 mm[Hg] 110-140 October 15, 201 9 8:23pm BP Diastolic 86 mm[Hg] 60-90 October 15, 201 9 8:23pm BMI (Body Mass Index) 39.0 kg/m2 September 7:43pm Height 157.48 cm October 17 201 9 8:50am Weight 97.52 kg October 17 9 8:50am Heart Rate 75 /min 60-October 17 201 9 8:50am BP Systolic 120 mm[Hg] 110-140 October 17, 201 9 8:50am BP Diastolic 50 mm[Hg] 60-90 October 17 201 9 8:50am BMI (Body Mass Index) 39.3 kg/m2 September 8:50am Height 157.48 cm October 28, 2018 2:28pm Weight 98.59 kg October 28, 2018 2:28pm Body Temperature 98.1 [degF] 97.6-99.6 October 28, 2018 2:28pm Heart Rate 80 /min 60-90 October 28, 2018 2:28pm BP Systolic 128 mm[Hg] 110-140 October 28, 2018 2:28pm BP Diastolic 84 mm[Hg] 60-90 October 28, 2018 2:28pm BMI (Body Mass Index) 39.7 kg/m2 October 28, 2018 2:28pm Height 154.94 cm November 08, 2018 3:44pm Weight 99.79 kg November 08, 2018 3:44pm Body Temperature 98.0 [degF] 97.6-99.6 November 08, 2018 3:44pm Heart Rate 101 /min -November 08, 2018 3:44pm Respiratory rate 20 /min 12-November 08, 2018 3:44pm Oxygen saturation by Pulse 100 % 95-100 Sept2018 3:44pm oximetry BP Systolic 121 mm[Hg] 110-140 November 08, 2018 3:44pm BP Diastolic 84 mm[Hg] 60-90 November 08, 2018 3:44pm BMI (Body Mass Index) 41.5 kg/m2 November 08, 2018 3:44pm Height 154.94 cm November 11, 2018 1:37pm Weight 99.33 kg November 11, 2018 1:37pm Heart Rate 92 /min November 11, 2018 1:37pm BP Systolic 135 mm[Hg] 110-140 November 11, 2018 1:55pm BP Diastolic 84 mm[Hg] 60-90 November 11, 2018 1:55pm BMI (Body Mass Index) 41.3 kg/m2 November 11, 2018 1:37pm Height 154.94 cm November 13, 2018 2:18pm Weight 99.33 kg November 13, 2018 2:18pm Heart Rate 94 /min 60-90 November 13, 2018 2:18pm BP Systolic 130 mm[Hg] 110-140 November 13, 2018 2:18pm BP Diastolic 78 mm[Hg] 60-90 November 13, 2018 2:18pm BMI (Body Mass Index) 41.3 kg/m2 November 13, 2018 2:18pm Weight 99.33 kg November 13, 2018 2:49pm BP Systolic 130 mm[Hg] 110-140 November 13, 2018 3:28pm BP Diastolic 84 mm[Hg] 60-90 November 13, 2018 3:28pm Height 154.94 cm November 14, 2018 9:29am Weight 98.20 kg November 14, 2018 9:29am Heart Rate 77 /min 60-90 November 14, 2018 9:29am BP Systolic 138 mm[Hg] 110-140 November 14, 2018 9:30am BP Diastolic 88 mm[Hg] 60-90 November 14, 2018 9:30am BMI (Body Mass Index) 40.8 kg/m2 November 14, 2018 9:29am Height 1554.48 cm December 01 3:33pm Weight 101.77 kg December 01 3:33pm Heart Rate 90 /min 60-90 December 01 3:33pm BP Systolic 135 mm[Hg] 110-140 December 01 3:34pm BP Diastolic 88 mm[Hg] 60-90 December 01, 3:34pm BMI (Body Mass Index) 0.4 kg/m2 December 012018 3:33pm Height 154.94 cm December 04 3:46pm Weight 102.22 kg December 04 3:46pm Heart Rate 87 /min -90 December 04 3:46pm BP Systolic 123 mm[Hg] 110-140 December 04 3:46pm BP Diastolic 89 mm[Hg] 60-90 December 04 3:46pm BMI (Body Mass Index) 42.5 kg/m2 December 042018 3:46pm Height 167.64 cm December 08 2:11pm Weight 101.32 kg December 08 2:11pm Heart Rate 99 /min 60-90 December 08 2:11pm BP Systolic 142 mm[Hg] 110-140 December 08 2:14pm BP Diastolic 88 mm[Hg] 60-90 December 08 2:14pm BMI (Body Mass Index) 36.0 kg/m2 December 082018 2:11pm Height 167.64 cm December 11 10:08am Weight 100.86 kg December 11 10:08am Heart Rate 72 /min 60-December 11 10:08am BP Systolic 120 mm[Hg] 110-140 December 11 10:08am BP Diastolic 82 mm[Hg] 60-90 December 11 10:08am BMI (Body Mass Index) 35.9 kg/m2 December 112018 10:08am Height 167.64 cm December 16 1:12pm Weight 100.47 kg December 16 1:12pm Body Temperature 98.0 [degF] 97.6-99.6 December 16, 2 019 1:12pm Heart Rate 80 /min 60-December 16 1:12pm BP Systolic 150 mm[Hg] 110-140 December 16 1:12pm BP Diastolic 100 mm[Hg] 60-90 December 16 1:12pm BMI (Body Mass Index) 35.7 kg/m2 December 162018 1:12pm Height 167.64 cm December 16 2:53pm Weight 100.24 kg December 16 2:53pm Body Temperature 97.7 [degF] 97.6-99.6 December 17, 2 019 7:30am Heart Rate 85 /min -December 17 7:30am Respiratory rate 20 /min -December 17, 2 019 7:30am Oxygen saturation by Pulse 97 % 95-100 Octob 2018 3:37am oximetry BP Systolic 132 mm[Hg] 110-140 December 17 10:36am BP Diastolic 74 mm[Hg] 60-90 December 17 10:36am BMI (Body Mass Index) 35.6 kg/m2 December 162018 2:53pm
[2018-12-18 06:19] VITALS: BP 103/67
--- NOTE | 2018-12-18 07:08 | Progress Note ---
Internal Medicine - PN: Subj *Date: 12/18/18 *Time: 07:06 (This is hospital day #3. The patient remains afebrile. Her vital signs are stable. Her blood pressure is 115/72. DTRs are flat. She is complaining of a headache and in general feeling poorly (likely secondary to magnesium sulfate). She is also complaining of increased pressure, but her cervix is thick and closed and vertex is ballotable. No contractions on the monitor. Baseline has occasionally run low, but with good variability and good accelerations (question due to magnesium sulfate). Biophysical profile yesterday was normal. Plan will be to decrease her magnesium sulfate to 1 g/h at this time and observe.) Exam Vital signs and Labs for Last 24 Hours: Temp Pulse Resp BP Pulse Ox 97.8 F 88 20 103/67 L 100 12/18/18 04:08 12/18/18 06:09 12/18/18 04:08 12/18/18 06:09 12/18/18 04:08 I & O for Last 24 hours: Intake & Output 12/15/18 12/16/18 12/17/18 12/18/18 11:59 11:59 11:59 11:59 Intake Total 1500 / 1500 Output Total 3000 / 3000 3125 / 3125 Balance -1500 / -1500 -3125 / -3125 Weight 221 lb
--- NOTE | 2018-12-19 06:39 | Progress Note ---
Internal Medicine - PN: Subj *Date: 12/19/18 *Time: 06:38 (This is hospital day #4. The patient is afebrile. Her vital s igns are stable. Her blood pressures are in the 120s over 70s. DTRs are normal. She has been off magnesium sulfate and has been stable during the night. She will be discharged home today.) Exam Vital signs and Labs for Last 24 Hours: Temp Pulse Resp BP Pulse Ox 97.8 F 88 20 103/67 L 100 12/18/18 04:08 12/18/18 06:09 12/18/18 04:08 12/18/18 06:09 12/18/18 04:08 Laboratory Results - last 24 hr 12/18/18 06:12: Magnesium 5.3 H I & O for Last 24 hours: Intake & Output 12/16/18 12/17/18 12/18/18 12/19/18 11:59 11:59 11:59 11:59 Intake Total 1500 / 1500 Output Total 3000 / 3000 3125 / 3125 Balance -1500 / -1500 -3125 / -3125 Weight 221 lb
--- NOTE | 2018-12-19 06:42 | Discharge Summary ---
General - General Admission date:: 12/16/18 Discharge date: 12/19/18 (This 28-year-old 5, para 2 (2 C-sections), Ab2 white female was admitted at 34-6/7 weeks with signs and symptoms of preeclampsia. She was not rajat. She has been treated with intravenous magnesium sulfate for neuroprotection; she is subsequently been weaned off the magnesium sulfate and her blood pressures are stable in the 120s over 70s. Her DTRs are normal. Biophysical profile was normal. [facility], to be followed up in the office in 3 to 4 days. She is given appropriate instructions as to exercise restrictions, and is to return to the hospital for contractions or worsening symptoms.) Objective Vital signs: Temp Pulse Resp BP Pulse Ox 97.8 F 88 20 103/67 L 100 12/18/18 04:08 12/18/18 06:09 12/18/18 04:08 12/18/18 06:09 12/18/18 04:08 Results Labs on day of discharge: Labs from last 24 hours 12/18/18 06:12 Magnesium 5.3 H Discharge Plan - Patient Discharge Instructions Additional Instructions: BEDREST UNTIL DELIVERY Patient Instructions: Pre-eclampsia and -induced Hypertension (Alternative Therapy), Pre-eclampsia, How to Do Kick Counts, Antepartum Care - Follow up Plan Follow up with: Hardeep Nielsen MD [Staff Physician] - Home Medications: Home Medications Medication Instructions Recorded Confirmed Type No Known Home Medications 12/16/18 12/16/18 History Prescriptions/Medication Reconciliation: No Action No Known Home Medications - Problem Reconciliation Problems Reviewed?: Yes
== END 2018-12-19 10:04 | disposition home or self-care (01) | DRG 833 ==
LOC: OBOUT 14:22 → OB 14:23
PROVIDERS: ADMIT Obstetrics & Gynecology; ATTEND Obstetrics & Gynecology
CPT/HCPCS: J2405

== ENCOUNTER 2018-12-22 11:42 | Outpatient (CLI) | payer BC, SELFPAY ==
[2018-12-22 11:45] VITALS: BMI 42.1
[2018-12-22 11:54] VITALS: BP 126/81; PULSE 101; RESP 18; TEMP 36.6; O2SAT 98; BMI 42.1
[2018-12-22 12:06] LABS: Microscopic, Urine URINE MICROSCOPIC (MICROSCOPIC)
[2018-12-22 12:13] LABS: Appearance,Urine CLEAR (Clear); Bilirubin,Urine Negative (Negative); Blood, Urine Negative (Negative); Color,Urine YELLOW (Yellow); Glucose,Urine (UA) Negative (Negative); Ketones,Urine Negative (Negative); Leukocyte Esterase,Urine Negative (Negative); Nitrate,Urine Negative (Negative); Protein,Urine Negative (Negative); Urobilinogen,Urine 0.2 EU/dl (0.2)
[2018-12-22 12:21] LABS: Amphetamine/Metha Screen,Urine Negative ng/mL (<1000); Barbiturates Screen,Urine Negative ng/mL (<200); Benzodiazepines Screen,Urine Negative ng/mL (<200); Cannabinoid Screen,Urine Negative ng/mL (<50); Cocaine Screen,Urine Negative ng/mL (<300); Methadone Screen,Urine Negative ng/mL (<300); Opiate Screen,Urine Negative ng/mL (<300); Phencyclidine Screen,Urine Negative ng/mL (<25)
[2018-12-22 12:30] VITALS: BP 124/74
[2018-12-22 12:36] LABS: Bacteria,Urine Trace /lpf; Mucus,Urine 1+ /lpf; RBC,Urine Occasional #/hpf (0-3)
[2018-12-22 12:45] VITALS: BP 119/70
[2018-12-22 12:54] LABS: Basophils % 0.3 % (0.1-2.0); Eosinophils # 0.3 K/mm3 (0.0-0.4); Eosinophils % 2.4 % (0.1-12.0); Hematocrit 35.4 % (37.0-47.0); Hemoglobin 11.8 g/dL (12.2-16.2); Lymphocytes # 2.8 K/mm3 (0.7-4.5); Lymphocytes % 23.5 % (10-50); Mean Corpuscular HGB Conc 33.4 g/dL (31.8-35.4); Mean Corpuscular Hemoglobin 28.5 pg (27.0-31.2); Mean Corpuscular Volume 85.5 fl (81-99); Mean Platelet Volume 12.9 fl (7.4-10.4); Monocytes # 0.5 K/mm3 (0.1-1.0); Monocytes % 3.9 % (1.7-9.3); Neutrophils # 8.4 K/mm3 (1.8-7.8); Platelet Count 132 K/mm3 (142-424); Red Blood Count 4.15 M/mm3 (4.20-5.40); Red Cell Distribution Width 13.5 % (11.5-17.5); White Blood Count 11.9 K/mm3 (4.8-10.8)
[2018-12-22 13:00] VITALS: BP 120/74
[2018-12-22 13:15] VITALS: BP 118/66
[2018-12-22 13:24] LABS: Fibrinogen 470 mg/dL (204-500)
[2018-12-22 13:26] LABS: Activated Partial Thrombo Time 26.7 seconds (23.6-34.0); Prothrombin Time 9.4 seconds (9.4-11.8)
[2018-12-22 13:30] VITALS: BP 123/68
[2018-12-22 13:58] LABS: Alanine Aminotransferase 92 U/L (12-78); Anion Gap 16.6 mEq/L (5-15); Aspartate Amino Transferase 44 U/L (15-37); Blood Urea Nitrogen 7 mg/dL (7-18); Calcium 8.7 mg/dL (8.5-10.1); Carbon Dioxide 19 mmol/L (21.0-32.0); Chloride 105 mmol/L (98-107); Creatinine Clearance Estimated 157 mL/min (50-200); Estimated Glomerular Filt Rate 189 ml/min (>60); GFR (African American) 228 ML/MIN (>60); Glucose 79 mg/dL (74-106); Magnesium 1.3 mg/dL (1.4-2.2); Potassium 3.6 mmoL/L (3.5-5.1); Sodium 137 mmol/L (136-145); Uric Acid 3.7 mg/dL (2.6-7.2)
[2018-12-22 15:41] LABS: D-Dimer 1070 ng/mL (0-400)
== END 2018-12-22 13:51 | disposition home or self-care (01) ==
LOC: OBOUT 11:44 → OB 11:45
PROVIDERS: PCP Family Medicine; Visit Provider Nurse Practitioner Obstetrics & Gynecology
DX: O13.3 Gestational [pregnancy-induced] hypertension without significant proteinuria, third trimester (principal); Z3A.36 36 weeks gestation of pregnancy; R42 Dizziness and giddiness
CPT/HCPCS: 59025; 80048; 80305; 81001; 83735; 84450; 84460; 84550; 85025; 85378; 85384; 85610; 85730; 96360

== ENCOUNTER → 2018-12-23 15:59 | Outpatient (CLI) | payer BC, SELFPAY ==
[2018-12-23 16:47] LABS: Basophils % 0.3 % (0.1-2.0); Eosinophils # 0.5 K/mm3 (0.0-0.4); Eosinophils % 4.1 % (0.1-12.0); Hematocrit 35.9 % (37.0-47.0); Hemoglobin 12.1 g/dL (12.2-16.2); Lymphocytes # 2.9 K/mm3 (0.7-4.5); Lymphocytes % 22.3 % (10-50); Mean Corpuscular HGB Conc 33.8 g/dL (31.8-35.4); Mean Corpuscular Hemoglobin 28.7 pg (27.0-31.2); Mean Corpuscular Volume 84.9 fl (81-99); Mean Platelet Volume 12.9 fl (7.4-10.4); Monocytes # 0.6 K/mm3 (0.1-1.0); Monocytes % 4.2 % (1.7-9.3); Neutrophils # 9.1 K/mm3 (1.8-7.8); Neutrophils % 69.1 % (37.0-80.0); Platelet Count 141 K/mm3 (142-424); Red Blood Count 4.23 M/mm3 (4.20-5.40); Red Cell Distribution Width 13.5 % (11.5-17.5); White Blood Count 13.1 K/mm3 (4.8-10.8)
[2018-12-23 17:54] LABS: Activated Partial Thrombo Time 25.9 seconds (23.6-34.0); Fibrinogen 500 mg/dL (204-500); Prothrombin Time 9.4 seconds (9.4-11.8)
[2018-12-23 17:57] LABS: D-Dimer 557 ng/mL (0-400)
[2018-12-23 18:25] LABS: Alanine Aminotransferase 92 U/L (12-78); Aspartate Amino Transferase 46 U/L (15-37); Blood Urea Nitrogen 7 mg/dL (7-18); Carbon Dioxide 22 mmol/L (21.0-32.0); Chloride 106 mmol/L (98-107); Creatinine,Serum 0.47 mg/dL (0.55-1.02); Estimated Glomerular Filt Rate 157 ml/min (>60); GFR (African American) 190 ML/MIN (>60); Glucose 82 mg/dL (74-106); Sodium 138 mmol/L (136-145); Uric Acid 3.5 mg/dL (2.6-7.2)
== END ==
PROVIDERS: Visit Provider Nurse Practitioner Obstetrics & Gynecology
DX: Z34.90 Encounter for supervision of normal pregnancy, unspecified, unspecified trimester (principal)
CPT/HCPCS: 36415; 80048; 84450; 84460; 84550; 85025; 85378; 85384; 85610; 85730

== ENCOUNTER → 2018-12-24 15:22 | Outpatient (CLI) | payer BC, SELFPAY ==
--- NOTE | 2018-12-24 15:25 | US_ITS ---
PROCEDURE: US OB BIOPHYSICAL PROFILE CLINICAL INDICATION: US OB BPP- Decreased Movement TECHNIQUE: FINDINGS: There is a single live fetus present which is in breech presentation. heart and body motion noted within FHR 123 beats per minute. The placenta is anterior and grade 1. The cervix measures 3.8 cm. The cervix does appear closed. Biometric measurements are not obtained. The amniotic fluid index is 17 cm. Amniotic fluid index: 17 cm Qualitative AFV: 2 breathing movements: 2 Gross body movements: 2 Tone: 2 Biophysical profile score: 8/8 IMPRESSION: Biophysical profile is 8 of 8. Breech position with amniotic fluid index of 17 cm Dictated by: Hai Thomas MD 12/24/2018 18:06 Electronically signed by Hai Thomas MD in [place] 12/24/2018 18:06
== END ==
PROVIDERS: PCP Family Medicine; Visit Provider Nurse Practitioner Obstetrics & Gynecology
DX: O36.8131 Decreased fetal movements, third trimester, fetus 1 (principal)
CPT/HCPCS: 76819

== ENCOUNTER 2018-12-25 09:31 | Outpatient (CLI) | payer BC, SELFPAY ==
[2018-12-25 09:57] VITALS: BP 131/91; PULSE 110; RESP 18; TEMP 36.6; O2SAT 98; BMI 41.7
[2018-12-25 10:27] LABS: Microscopic, Urine URINE MICROSCOPIC (MICROSCOPIC)
[2018-12-25 10:30] LABS: Appearance,Urine CLEAR (Clear); Bilirubin,Urine Negative (Negative); Blood, Urine Negative (Negative); Color,Urine YELLOW (Yellow); Glucose,Urine (UA) Negative (Negative); Ketones,Urine Negative (Negative); Leukocyte Esterase,Urine Negative (Negative); Nitrate,Urine Negative (Negative); Protein,Urine Negative (Negative); Specific Gravity, Urine <= 1.005 (1.005-1.030); Urobilinogen,Urine 0.2 EU/dl (0.2)
[2018-12-25 10:36] LABS: WBC,Urine Occasional #/hpf (0-3)
[2018-12-25 10:37] LABS: Amphetamine/Metha Screen,Urine Negative ng/mL (<1000); Barbiturates Screen,Urine Negative ng/mL (<200); Benzodiazepines Screen,Urine Negative ng/mL (<200); Cannabinoid Screen,Urine Negative ng/mL (<50); Cocaine Screen,Urine Negative ng/mL (<300); Methadone Screen,Urine Negative ng/mL (<300); Opiate Screen,Urine Negative ng/mL (<300); Phencyclidine Screen,Urine Negative ng/mL (<25)
--- NOTE | 2018-12-25 10:39 | [facility].ACPN2 ---
Internal Medicine - PN: Subj *Date: 12/25/18 *Time: 10:39 Interval history: She complains of low back pain. She is just uncomfortable. The nonstress test is reactive. Her blood pressure is stable. She was seen yesterday in my office and had an ultrasound that was normal. Exam Vital signs and Labs for Last 24 Hours: Temp Pulse Resp BP Pulse Ox 97.8 F 110 H 18 131/91 H 98 12/25/18 09:57 12/25/18 09:57 12/25/18 09:57 12/25/18 09:57 12/25/18 09:57 Laboratory Results - last 24 hr 12/25/18 09:44: Urine Color Yellow, Urine Appearance Clear, Urine pH 6.0, Ur Specific [place] <= 1.005, Urine Protein Negative, Urine Glucose (UA) Negative, Urine Ketones Negative, Urine Blood Negative, Urine Nitrate Negative, Urine Bilirubin Negative, Urine Urobilinogen 0.2, Ur Leukocyte Esterase Negative, Urine RBC None, Urine WBC Occasional, Ur Squamous Epith Cells 5-10, Urine Bacteria None 12/25/18 09:44: Urine Opiates Screen Negative, Urine Methadone Screen Negative, Ur Barbituates Screen Negative, Ur Phencyclidine Scrn Negative, Ur Amphetamines Screen Negative, U Benzodiazepines Scrn Negative, Urine Cocaine Screen Negative, U Marijuana (THC) Screen Negative I & O for Last 24 hours: Intake & Output 12/22/18 12/23/18 12/24/18 12/25/18 11:59 11:59 11:59 11:59 Weight 221 lb - Constitutional no acute distress Assessment and Plan (1) False labor Current visit: Yes Status: Acute Category: Medical Code(s): O47.9 - False labor, unspecified - Assessment and plan all Dx Assessment and Plan for all problems:: She has some low back pain but no contractions. The nonstress test is reactive. Her blood pressure is normal. She will follow-up with me again tomorrow since Dr. Nielsen is out of town.
== END 2018-12-25 11:15 | disposition home or self-care (01) ==
LOC: RAD 09:32 → OB 09:32
PROVIDERS: PCP Family Medicine; Visit Provider Nurse Practitioner Obstetrics & Gynecology
DX: O47.9 False labor, unspecified (principal); Z3A.36 36 weeks gestation of pregnancy
CPT/HCPCS: 59025; 80305; 81001

== ENCOUNTER 2018-12-27 14:53 | Inpatient (IN) ==
[2018-12-27 15:38] LABS: Appearance,Urine CLEAR (Clear); Bilirubin,Urine Negative (Negative); Blood, Urine Negative (Negative); Color,Urine YELLOW (Yellow); Glucose,Urine (UA) Negative (Negative); Ketones,Urine Negative (Negative); Leukocyte Esterase,Urine Negative (Negative); Microscopic, Urine URINE MICROSCOPIC (MICROSCOPIC); Protein,Urine Negative (Negative); Urobilinogen,Urine 0.2 EU/dl (0.2)
[2018-12-27 15:53] LABS: Amphetamine/Metha Screen,Urine Negative ng/mL (<1000); Barbiturates Screen,Urine Negative ng/mL (<200); Benzodiazepines Screen,Urine Negative ng/mL (<200); Cannabinoid Screen,Urine Negative ng/mL (<50); Cocaine Screen,Urine Negative ng/mL (<300); Methadone Screen,Urine Negative ng/mL (<300); Opiate Screen,Urine Negative ng/mL (<300); Phencyclidine Screen,Urine Negative ng/mL (<25)
[2018-12-27 15:58] LABS: Basophils # 0.1 K/mm3 (0-0.2); Basophils % 0.4 % (0.1-2.0); Eosinophils # 0.4 K/mm3 (0.0-0.4); Eosinophils % 3.1 % (0.1-12.0); Hematocrit 35.5 % (37.0-47.0); Hemoglobin 11.9 g/dL (12.2-16.2); Lymphocytes # 2.8 K/mm3 (0.7-4.5); Lymphocytes % 23.6 % (10-50); Mean Corpuscular HGB Conc 33.4 g/dL (31.8-35.4); Mean Corpuscular Volume 85.5 fl (81-99); Mean Platelet Volume 13.2 fl (7.4-10.4); Monocytes # 0.4 K/mm3 (0.1-1.0); Monocytes % 3.6 % (1.7-9.3); Neutrophils # 8.2 K/mm3 (1.8-7.8); Neutrophils % 69.4 % (37.0-80.0); Platelet Count 133 K/mm3 (142-424); Red Blood Count 4.16 M/mm3 (4.20-5.40); Red Cell Distribution Width 13.5 % (11.5-17.5); White Blood Count 11.9 K/mm3 (4.8-10.8)
[2018-12-27 16:09] LABS: Activated Partial Thrombo Time 26.4 seconds (23.6-34.0); Anion Gap 15.4 mEq/L (5-15); Calcium 8.3 mg/dL (8.5-10.1); INR 0.9 (0.9-1.1); Prothrombin Time 9.4 seconds (9.4-11.8); Uric Acid 3.7 mg/dL (2.6-7.2)
--- NOTE | 2018-12-27 18:16 | History & Physical Report ---
OB - H&P: HPI Antepartum - History of Present Illness Chief complaint: History of severe PIH, help syndrome History of present illness: She is a 28-year-old 5 para 2 aborta 2 who is 36+ weeks gestational age. She has a history of -induced hypertension and help syndrome. She came in today with mild headache and her laboratory investigations revealed increasing liver function tests and platelets that are marginally low at 133. They had previously been 170 3 weeks ago. Her liver function tests have elevated slightly over the last 5 days. D-dimers are slightly elevated but her LDH is normal and not indicative of hemolysis at this point time. She has flat reflexes and a mild headache. She denies epigastric pain. She had steroids when she was admitted 3 weeks ago with slightly elevated blood pressures. At that time she also received magnesium sulfate along with the steroids. - History of Present Criteria for establishing EDC:: LMP confirmed by 1st trimester US care: good care Ultrasounds: normal 1st trimester US, normal mid trimester US Obstetrical complications: preeclampsia, gestational hypertension H History I have reviewed the patient's past medical history: Yes *Have you ever received a pneumonia vaccine?: No *Have you received a flu vaccine this season?: No Laterality Cases: Other Surgeries: Yes: Amputation: No Fractures: No - *Social History Smoking Status: Never smoker Alcohol Intake: never Alcohol Intake Frequency:: other Substance Use Type: denies use *Occupational Status:: employed *Travel in the last 8 weeks: Inside the [facility] Family Hx:: No significant family history Para: 2 Review of Systems - Review of Systems Review of systems:: pertinent systems reviewed and negative unless documented below Meds Home Medications Medication Instructions Recorded Confirmed Type acetaminophen 300 mg-codeine 30 mg 1 tab PO Q8H PRN #20 tab 12/26/18 12/26/18 Rx tablet Allergies Allergy/AdvReac Type Severity Reaction Status Date / Time No Known Allergies Allergy Verified 12/26/18 11:21 OB - H&P: Exam - Physical Exam Vital signs: Temp Pulse Resp BP Pulse Ox 97.9 F 88 18 143/82 H 96 12/27/18 14:57 12/27/18 14:57 12/27/18 14:57 12/27/18 14:57 12/27/18 14:57 - Constitutional no acute distress - Routine HEENT Exam Head: Present: normocephalic Eye: Present: EOMI, PERRL ENT: Present: mucous membranes moist - Routine Neck Exam Present: supple, full ROM - Routine Respiratory Exam Absent: accessory muscle use (good air entry bilaterally), respiratory distress, wheezes, crackles - Routine Cardiovascular Exam Present: RRR. Absent: murmur - Routine Abdominal Exam Present: soft, normoactive bowel sounds. Absent: tenderness, distended, guard ing - Routine Rectal Exam Patient deferred: visual exam, digital exam - Routine Exam Patient deferred: external exam, groin exam, perineal exam - Routine Extremities Exam Present: full ROM. Absent: cyanosis, edema - Routine Skin Exam Present: intact. Absent: cyanosis - Routine Neurological Exam Present: alert, oriented X3 - Routine Psychiatric Exam Present: normal affect OB - Results - Labs Labs: Short CBC 12/27/18 Range/Units 15:05 WBC 11.9 H (4.8-10.8) K/mm3 Hgb 11.9 L (12.2-16.2) g/dL Hct 35.5 L (37.0-47.0) % Plt Count 133 L (142-424) K/mm3 BMP 12/27/18 15:05 Sodium 136 Potassium 3.4 L Chloride 103 Carbon Dioxide 21 BUN 9 Creatinine 0.50 L Glucose 109 H Calcium 8.3 L Liver Function 12/27/18 Range/Units 15:05 AST 63 H (15-37) U/L ALT 114 H (12-78) U/L Urine 12/27/18 Range/Units 15:05 Urine Color Yellow (Yellow) Urine Appearance Clear (Clear) Urine pH 7.0 (5.0-8.5) Ur Specific [place] 1.020 (1.005-1.030) Urine Protein Negative (Negative) Urine Glucose (UA) Negative (Negative) OB - A/P Antepartum (1) Previous complicated by -induced hypertension in first trimester, antepartum Current visit: Yes Status: Acute (2) Gestational hypertension Current visit: Yes Status: Acute (3) Elevated liver enzymes Current visit: Yes Status: Acute - Additional Plan Planning to breastfeed?: Yes Plan: other Additional Information:: I spoke to Dr. Blackburn at and he agrees that she should be delivered soon. At this point in time is not an emergent delivery. She has had steroids and we will watch her overnight. We will reassess her in the morning. We will decide whether we will deliver her tomorrow or in 36 hours from now. Nonstress test is reactive and she is stable. Her blood pressures have been slightly elevated at times but mostly in the normal range.
--- NOTE | 2018-12-27 18:44 | Progress Note ---
Internal Medicine - PN: Subj *Date: 12/27/18 *Time: 18:42 Interval history: I have elected to go ahead and deliver her tomorrow morning at 8:00. We we discussed the risks of surgery that includes bleeding, infection, injuries to the bowel and bladder. We discussed the rare risk of DVT and the need for DVT prophylaxis. All questions were answered and consents were signed. Exam Vital signs and Labs for Last 24 Hours: Temp Pulse Resp BP Pulse Ox 97.9 F 88 18 143/82 H 96 12/27/18 14:57 12/27/18 14:57 12/27/18 14:57 12/27/18 14:57 12/27/18 14:57 Laboratory Results - last 24 hr 12/27/18 15:05: WBC 11.9 H, RBC 4.16 L, Hgb 11.9 L, Hct 35.5 L, MCV 85.5, MCH 28.6, MCHC 33.4, RDW 13.5, Plt Count 133 L, MPV 13.2 H, Neut % (Auto) 69.4, Lymph % (Auto) 23.6, [place] % (Auto) 3.6, Eos % (Auto) 3.1, Baso % (Auto) 0.4, Neut # (Auto) 8.2 H, Lymph # (Auto) 2.8, [place] # (Auto) 0.4, Eos # (Auto) 0.4, Baso # (Auto) 0.1 12/27/18 15:05: PT 9.4, INR 0.90, APTT 26.4, Fibrinogen 500, D-Dimer 1280 H* 12/27/18 15:05: Sodium 136, Potassium 3.4 L, Chloride 103, Carbon Dioxide 21, Anion Gap 15.4 H, BUN 9, Creatinine 0.50 L, Estimated Creat Clear 125, Estimated GFR 146, Est GFR ( Amer) 177, Glucose 109 H, Uric Acid 3.7, Calcium 8.3 L , AST 63 H, ALT 114 H 12/27/18 15:05: Urine Color Yellow, Urine Appearance Clear, Urine pH 7.0, Ur Specific [place] 1.020, Urine Protein Negative, Urine Glucose (UA) Negative, Urine Ketones Negative, Urine Blood Negative, Urine Nitrate Negative, Urine Bilirubin Negative, Urine Urobilinogen 0.2, Ur Leukocyte Esterase Negative, Urine RBC None, Urine WBC 3-5, Ur Squamous Epith Cells 10-20, Urine Bacteria None 12/27/18 15:05: Urine Opiates Screen Negative, Urine Methadone Screen Negative, Ur Barbituates Screen Negative, Ur Phencyclidine Scrn Negative, Ur Amphetamines Screen Negative, U Benzodiazepines Scrn Negative, Urine Cocaine Screen Negative, U Marijuana (THC) Screen Negative 12/27/18 15:05: Lactate Dehydrogenase 141 I & O for Last 24 hours: Intake & Output 12/25/18 12/26/18 12/27/18 12/28/18 11:59 11:59 11:59 11:59 Weight 223 lb - Constitutional no acute distress Assessment and Plan (1) Previous complicated by -induced hypertension in first trimester, antepartum Current visit: Yes Status: Acute Category: Medical Code(s): O09.891 - Supervision of other high risk pregnancies, first trimester (2) Gestational hypertension Current visit: Yes Status: Acute Category: Medical Code(s): O13.9 - Gestational [-induced] hypertension without significant proteinuria, unspecified trimester (3) Elevated liver enzymes Current visit: Yes Status: Acute Category: Medical Code(s): R74.8 - Abnormal levels of other serum enzymes - Assessment and plan all Dx Assessment and Plan for all problems:: We will go ahead and plan for delivery tomorrow morning at 8:00.
[2018-12-28 06:36] LABS: Activated Partial Thrombo Time 25.7 seconds (23.6-34.0); INR 0.93 (0.9-1.1); Prothrombin Time 9.7 seconds (9.4-11.8)
[2018-12-28 06:44] LABS: Anion Gap 14.6 mEq/L (5-15); Uric Acid 4.5 mg/dL (2.6-7.2)
[2018-12-28 06:45] LABS: Basophils # 0.1 K/mm3 (0-0.2); Basophils % 0.5 % (0.1-2.0); Eosinophils # 0.4 K/mm3 (0.0-0.4); Eosinophils % 4.3 % (0.1-12.0); Hematocrit 34.5 % (37.0-47.0); Hemoglobin 11.6 g/dL (12.2-16.2); Lymphocytes # 3.1 K/mm3 (0.7-4.5); Lymphocytes % 31.5 % (10-50); Mean Corpuscular HGB Conc 33.5 g/dL (31.8-35.4); Mean Corpuscular Volume 85.3 fl (81-99); Mean Platelet Volume 13.3 fl (7.4-10.4); Monocytes # 0.4 K/mm3 (0.1-1.0); Neutrophils # 5.8 K/mm3 (1.8-7.8); Neutrophils % 59.7 % (37.0-80.0); Platelet Count 136 K/mm3 (142-424); Red Blood Count 4.05 M/mm3 (4.20-5.40); Red Cell Distribution Width 13.6 % (11.5-17.5); White Blood Count 9.7 K/mm3 (4.8-10.8)
--- NOTE | 2018-12-28 07:42 | Progress Note ---
Internal Medicine - PN: Subj *Date: 12/28/18 *Time: 07:41 Interval history: She is doing well this morning. Her blood pressure is completely normal. Her platelets are 136. We are awaiting the rest of her blood work. We will plan a this morning. Exam Vital signs and Labs for Last 24 Hours: Temp Pulse Resp BP Pulse Ox 98.1 F 60 18 107/68 L 95 12/27/18 20:36 12/28/18 03:45 12/27/18 22:22 12/28/18 03:45 12/27/18 20:36 Laboratory Results - last 24 hr 12/27/18 15:05: WBC 11.9 H, RBC 4.16 L, Hgb 11.9 L, Hct 35.5 L, MCV 85.5, MCH 28.6, MCHC 33.4, RDW 13.5, Plt Count 133 L, MPV 13.2 H, Neut % (Auto) 69.4, Lymph % (Auto) 23.6, [place] % (Auto) 3.6, Eos % (Auto) 3.1, Baso % (Auto) 0.4, Neut # (Auto) 8.2 H, Lymph # (Auto) 2.8, [place] # (Auto) 0.4, Eos # (Auto) 0.4, Baso # (Auto) 0.1 12/27/18 15:05: PT 9.4, INR 0.90, APTT 26.4, Fibrinogen 500, D-Dimer 1280 H* 12/27/18 15:05: Sodium 136, Potassium 3.4 L, Chloride 103, Carbon Dioxide 21, Anion Gap 15.4 H, BUN 9, Creatinine 0.50 L, Estimated Creat Clear 125, Estimated GFR 146, Est GFR ( Amer) 177, Glucose 109 H, Uric Acid 3.7, Calcium 8.3 L , AST 63 H, ALT 114 H 12/27/18 15:05: Urine Color Yellow, Urine Appearance Clear, Urine pH 7.0, Ur Specific [place] 1.020, Urine Protein Negative, Urine Glucose (UA) Negative, Urine Ketones Negative, Urine Blood Negative, Urine Nitrate Negative, Urine Bilirubin Negative, Urine Urobilinogen 0.2, Ur Leukocyte Esterase Negative, Urine RBC None, Urine WBC 3-5, Ur Squamous Epith Cells 10-20, Urine Bacteria None 12/27/18 15:05: Urine Opiates Screen Negative, Urine Methadone Screen Negative, Ur Barbituates Screen Negative, Ur Phencyclidine Scrn Negative, Ur Amphetamines Screen Negative, U Benzodiazepines Scrn Negative, Urine Cocaine Screen Negative, U Marijuana (THC) Screen Negative 12/27/18 15:05: Lactate Dehydrogenase 141 12/27/18 21:40: Blood Type O Positive, Antibody Screen Negative 12/28/18 06:05: WBC 9.7, RBC 4.05 L, Hgb 11.6 L, Hct 34.5 L, MCV 85.3, MCH 28.6, MCHC 33.5, RDW 13.6, Plt Count 136 L, MPV 13.3 H, Neut % (Auto) 59.7, Lymph % (Auto) 31.5, [place] % (Auto) 4.0, Eos % (Auto) 4.3, Baso % (Auto) 0.5, Neut # (Auto) 5.8, Lymph # (Auto) 3.1, [place] # (Auto) 0.4, Eos # (Auto) 0.4, Baso # (Auto) 0.1 12/28/18 06:05: PT 9.7, INR 0.93, APTT 25.7, Fibrinogen 484, D-Dimer 1070 H* 12/28/18 06:05: Sodium 140, Potassium 3.6, Chloride 106, Carbon Dioxide 23, Anion Gap 14.6, BUN 6 L D, Creatinine 0.55, Estimated Creat Clear 114, Estimated GFR 131, Est GFR ( Amer) 158, Glucose 79 D, Uric Acid 4.5, Calcium 9.0, AST 71 H, ALT 122 H, Lactate Dehydrogenase 134 I & O for Last 24 hours: Intake & Output 12/25/18 12/26/18 12/27/18 12/28/18 11:59 11:59 11:59 11:59 Weight 223 lb - Constitutional no acute distress Assessment and Plan (1) Previous complicated by -induced hypertension in first trimester, antepartum Current visit: Yes Status: Acute Category: Medical Code(s): O09.891 - Supervision of other high risk pregnancies, first trimester (2) Gestational hypertension Current visit: Yes Status: Acute Category: Medical Code(s): O13.9 - Gestational [-induced] hypertension without significant proteinuria, unspecified trimester (3) Elevated liver enzymes Current visit: Yes Status: Acute Category: Medical Code(s): R74.8 - Abnormal levels of other serum enzymes - Assessment and plan all Dx Assessment and Plan for all problems:: We will plan a this morning. She is doing well. She is stable. Nonstress test is reactive.
--- NOTE | 2018-12-28 09:05 | Progress Note ---
[facility] Anesthesia Checklist - Patient Identification Patient Identification: Arm Band, Verbal (Name & ) - Structural Data Admitted From: Inpatient (OB) Planned Operative Procedure/s: Consent for Planned Operative Procedure(s) Verified: Yes Verified Documents: Surgical Consent, History and Physical - NPO Status Verified Time NPO: 00:00 - Chart Verification Results Verified: CBC, BMP, PT, PTT, INR, UA - Additional verifications Patient : Yes Anesthesia Reactions: No - Airway Assessment C-Spine Mobility Assessed: Yes TMJ Mobility Assessed: Yes Dentition: Good Dentition - Neurological Assessment Level of Consciousness: Awake, Alert, Appropriate, Follows Commands Hx Seizures: No Numbness or tingling in extremities: No - Anesthesia Plan Anesthesia Risk discussed: Yes Anesthesia Plan: Verified ASA Class: II Anesthesia Type: Spinal [facility] History I have reviewed the patient's past medical history: Yes Medical History: Reports:: Gastroesophageal Reflux Disease(GERD) *Have you ever received a pneumonia vaccine?: No *Have you received a flu vaccine this season?: No Anesthesia experience/problems:: no complications Laterality Cases: Other Surgeries: Yes: Amputation: No Fractures: No - *Social History Smoking Status: Never smoker Alcohol Intake: never Alcohol Intake Frequency:: other Substance Use Type: denies use *Occupational Status:: employed *Travel in the last 8 weeks: Inside the [place] Family Hx:: No significant family history Para: 2 Comment: hx of preeclampsia, HELP syndrome
--- NOTE | 2018-12-28 10:28 | Operative Note ---
Date of procedure: 12/30/18 Pre-op Diagnosis:: History of severe -induced hypertension, HELLP syndrome, previous section, low platelets, increased liver enzymes, increased pressure Post-op Diagnosis:: History of -induced hypertension, previous section, increased blood pressure, low platelets, increased liver enzymes, extensive pelvic peritoneal adhesions Procedure performed:: Repeat lower segment transverse section and extensive lysis of adhesions Surgeon:: Jameson Lopez MD Bowling Ball Molder(s):: Dr. Jin PET RESORT CONCIERGE:: Efrain Matias Anesthesia: spinal Estimated blood loss (mL): 1,000 Clinical Note:: She is a 28-year-old 5 para 2 aborta 2 who was 36+ weeks gestational age. She is been followed over the last few weeks with increased blood pressure. Over the last week her platelets have gone down and her liver function tests have been steadily rising. There was no evidence of hemolysis except for slightly increased D-dimers. LDH was normal. She has a previous history of severe -induced hypertension and help syndrome. She has had recent steroids. After having discussed the risks and benefits with the patient as well as consulting Hospital we elected to deliver her early by repeat lower segment transverse section. Operative findings:: She delivered a liveborn female child at 9:34 AM on the morning of December 28, 2018. Baby had Apgars of 9 at 1 minute and 9 at 5 minutes. pH was 7.35. She had extensive adhesions of the omentum as well as the uterine fundus to the anterior abdominal wall. The adhesions were extremely thick from the uterus to the anterior abdominal wall. There was no plane between the uterine wall and anterior rectus muscles. Operative note:: She was taken to the operating room where spinal anesthesia was found be adequate. She was prepped and draped in normal sterile fashion in the supine position with a leftward tilt. A Rosario catheter was in the bladder. A Pfannenstiel skin incision was made with knife then carried through to the underlying layer of fascia with cautery. The fascia was opened in the midline with cautery and extended laterally using Ortiz scissors. [place] clamps were applied to the superior aspect of the fascial incision which was tented up and the underlying rectus muscles dissected off using cautery. The Bill clamps were then applied to the inferior aspect of the fascial incision which in a similar fashion was tented up and the underlying rectus muscles dissected off using cautery. The rectus muscles were then in the midline, we could not get into the peritoneal cavity due to extensive adhesions of the uterine wall to the anterior abdominal wall So we did an extraperitoneal hysterotomy above the bladder flap. Transverse incision was made through the uterine muscle to the amnion. This incision was then extended laterally using fingers as traction. The amnion was entered sharply with knife. There was clear amniotic fluid. The 's head was then delivered atraumatically. This was followed by the anterior shoulder and the rest of the infant's body atraumatically. The oropharynx and nasopharynx were bulb suctioned. The was then handed off to Dr. Lilly who assigned Apgars of 9 at 1 minute and 9 at 5 minutes. We then obtained cord blood as well as cord pH. The pH was 7.35. Using gentle traction on the cord and countertraction on the fundus I was able to easily deliver the placenta intact. It had a normal three-vessel cord. The uterus was then cleared of clots and debris . The uterine incision was then closed using running 0 Vicryl suture in a locked fashion. A second layer of the same suture was used to imbricate the first layer. It was then noticed that there was tearing along the anterior uterine serosal wall. The uterine wall was completely adherent to the underside of the rectus muscles. Using cautery we took this down. We closed this tearing with a running locked Vicryl suture. There were also some other areas of bleeding and using interrupted Vicryl suture along the anterior wall we are able to obtain excellent hemostasis. I then elected to place Yulisa along the incision and then this was covered with Interceed. I then used a large piece of Gelfoam over this. There was excellent hemostasis. I then placed a piece of Gelfoam along the uterine incision even though it was completely hemostatic. The gutters and cul-de-sac were then cleared of clots and debris . Once again hemostasis was assured. The peritoneum was grasped with Sara clamps and closed using running 2-0 Vicryl suture. The rectus muscles were then reapproximated using running 0 Vicryl suture. The fascia was closed using running #1 Vicryl suture. The subcutaneous tissues were then irrigated with warm water followed by closure Patrice's fascia using running 2-0 Monocryl suture. The skin was closed with harry. I then cleaned the skin with Hibiclens. Sterile dressings were applied. She tolerated the procedure well and was taken to the recovery room in excellent condition. All sponges, instrument and needle counts were correct. Estimated blood loss was approximately 1000 mL. Condition: stable Disposition: PACU Specimens:: Products of conception Complications:: None
--- NOTE | 2018-12-28 10:30 | Progress Note ---
[facility] Anesthesia Record Part II Discharge Time: 10:55 Destination: Obstetric PACU nurse assessment reviewed?: Yes Patient Condition:: Good Anesthesia Complications:: None Swallowing reflex intact?: Yes Cyanosis?: No
--- NOTE | 2018-12-28 10:30 | Progress Note ---
[facility] Anesthesia Record Part I Intake, IV Amount: 900 Estimated blood loss (mL): 1,000 Urine output (mL): 400 Blood Products used (#): none Blood Pressure: 113/70 SaO2: 96 Pulse Rate: 71 Respiratory Rate: 16 Temperature: 97.0 F Patient is:: Awake, Stable Stable to PACU at:: 10:25
[2018-12-28 12:12] LABS: Amphetamine/Metha Screen,Urine Negative ng/mL (<1000); Barbiturates Screen,Urine Negative ng/mL (<200); Benzodiazepines Screen,Urine Negative ng/mL (<200); Cannabinoid Screen,Urine Negative ng/mL (<50); Cocaine Screen,Urine Negative ng/mL (<300); Methadone Screen,Urine Negative ng/mL (<300); Opiate Screen,Urine Negative ng/mL (<300); Phencyclidine Screen,Urine Negative ng/mL (<25)
--- NOTE | 2018-12-28 14:53 | Pharmacy Consult Notes ---
[facility] Pharmacy VTE Monitoring - Patient Demographics Admission date: 12/27/18 Report Date: 12/28/18 Time: 14:53 Allergies/Adverse Reactions: Patient Allergies No Known Allergies Allergy (Verified 12/26/18 11:21) Height: 1.55 m Weight: 101.151 kg Patient Problems: Current Active Problems Previous complicated by -induced hypertension in first tri mester, antepartum (Acute) Gestational hypertension (Acute) Elevated liver enzymes (Acute) - VTE Risk Labs: VTE Related Lab Results Hgb 11.6 g/dL (12.2-16.2) L 12/28/18 06:05 Hct 34.5 % (37.0-47.0) L 12/28/18 06:05 Plt Count 136 K/mm3 (142-424) L 12/28/18 06:05 PT 9.7 seconds (9.4-11.8) 12/28/18 06:05 INR 0.93 (0.9-1.1) 12/28/18 06:05 APTT 25.7 seconds (23.6-34.0) 12/28/18 06:05 Fibrinogen 484 mg/dL (204-500) 12/28/18 06:05 BUN 6 mg/dL (7-18) L D 12/28/18 06:05 Creatinine 0.55 mg/dL (0.55-1.02) 12/28/18 06:05 Estimated Creat Clear 114 mL/min (50-200) 12/28/18 06:05 - Prophylaxis VTE Prophylaxis Ordered?: Yes Types of VTE Prophylaxis: IPCS Thigh High Location of Applied Device: Bilateral Lower Extremeties
[2018-12-28 16:18] LABS: Hematocrit 32.4 % (37.0-47.0)
[2018-12-28 16:20] LABS: Hemoglobin 10.1 g/dL (12.2-16.2)
--- NOTE | 2018-12-28 16:37 | Progress Note ---
Internal Medicine - PN: Subj *Date: 12/28/18 *Time: 16:33 Interval history: Her blood pressure has been slightly low over the last couple of hours. It is 96/56. Her heart rates 112. He did receive Dilaudid at the time of her spinal anesthesia. She received Phenergan about 2 hours ago and does feel a little drowsy. It is now about 7 hours after surgery. She did lose about 1000 cc of blood at the time of her surgery. Her hemoglobin before surgery was 11.6. We just did a stat H&H and her hemoglobin is 10.1 which I would have expected it to be after her blood loss. If she was having active bleeding I would have expected her hemoglobin to be much lower. He has been putting out good urine. Her urine output since surgery has been approximately 200 cc and clear. Otherwise she is doing well. Her pain is well controlled. Her belly is soft. Her uterus is well contracted. She has not been bleeding actively vaginally. She has minimal blood loss on her pad. We have typed and crossed her for 2 units of packed red cells and have these on hold. Exam Vital signs and Labs for Last 24 Hours: Temp Pulse Resp BP Pulse Ox 97.8 F 73 16 133/64 96 12/28/18 10:55 12/28/18 10:55 12/28/18 10:55 12/28/18 10:55 12/28/18 10:55 Laboratory Results - last 24 hr 12/27/18 15:05: D-Dimer 1280 H* 12/27/18 21:40: Blood Type O Positive, Antibody Screen Negative, Crossmatch (AH) See Detail 12/28/18 06:05: WBC 9.7, RBC 4.05 L, Hgb 11.6 L, Hct 34.5 L, MCV 85.3, MCH 28.6, MCHC 33.5, RDW 13.6, Plt Count 136 L, MPV 13.3 H, Neut % (Auto) 59.7, Lymph % (Auto) 31.5, [place] % (Auto) 4.0, Eos % (Auto) 4.3, Baso % (Auto) 0.5, Neut # (Auto) 5.8, Lymph # (Auto) 3.1, [place] # (Auto) 0.4, Eos # (Auto) 0.4, Baso # (Auto) 0.1 12/28/18 06:05: PT 9.7, INR 0.93, APTT 25.7, Fibrinogen 484, D-Dimer 1070 H* 12/28/18 06:05: Sodium 140, Potassium 3.6, Chloride 106, Carbon Dioxide 23, Anion Gap 14.6, BUN 6 L D, Creatinine 0.55, Estimated Creat Clear 114, Estimated GFR 131, Est GFR ( Amer) 158, Glucose 79 D, Uric Acid 4.5, Calcium 9.0, AST 71 H, ALT 122 H, Lactate Dehydrogenase 134 12/28/18 09:20: Urine Opiates Screen Negative, Urine Methadone Screen Negative, Ur Barbituates Screen Negative, Ur Phencyclidine Scrn Negative, Ur Amphetamines Screen Negative, U Benzodiazepines Scrn Negative, Urine Cocaine Screen Negative, U Marijuana (THC) Screen Negative 12/28/18 09:41: Cord ABG pH 7.35 12/28/18 16:05: Hgb 10.1 L D, Hct 32.4 L I & O for Last 24 hours: Intake & Output 12/26/18 12/27/18 12/28/18 12/29/18 11:59 11:59 11:59 11:59 Intake Total 900 / 900 Balance 900 / 900 Weight 223 lb - Constitutional no acute distress Comments: She looks otherwise pale. - *Routine Abdominal Exam Present: soft. Absent: tenderness Assessment and Plan (1) Previous complicated by -induced hypertension in first trimester, antepartum Current visit: Yes Status: Acute Category: Medical Code(s): O09.891 - Supervision of other high risk pregnancies, first trimester (2) Gestational hypertension Current visit: Yes Status: Acute Category: Medical Code(s): O13.9 - Gestational [-induced] hypertension without significant proteinuria, unspecified trimester (3) Elevated liver enzymes Current visit: Yes Status: Acute Category: Medical Code(s): R74.8 - Abnormal levels of other serum enzymes - Assessment and plan all Dx Assessment and Plan for all problems:: At this point in time she is hemodynamically stable. She has been putting out a good amount of urine. Her blood pressures are slightly low and she does look a little pale but her H&H was normal despite these findings. We will plan to repeat her H&H again in a couple of hours. We will continue to watch her closely. I have given her a 500 cc bolus of fluid.
[2018-12-28 19:02] LABS: Hemoglobin 8.9 g/dL (12.2-16.2)
[2018-12-28 19:03] LABS: Hematocrit 28.3 % (37.0-47.0)
[2018-12-28 20:58] LABS: Hematocrit 25.9 % (37.0-47.0); Hemoglobin 8.7 g/dL (12.2-16.2)
--- NOTE | 2018-12-29 06:14 | Progress Note ---
Internal Medicine - PN: Subj *Date: 12/29/18 *Time: 06:13 (This is and postoperative day #1. The patient is af ebrile. Her vital signs are stable. DTRs are normal. She is not on magnesium sulfate. Uterine fundus involuting well. Wound clean. Abdomen soft. DTRs normal. Hemoglobin (11.9 g on admission) is now 8.7 g. The patient appears clinically stable, but will have another H&H this morning.) Exam Vital signs and Labs for Last 24 Hours: Temp Pulse Resp BP Pulse Ox 98.6 F 95 H 18 118/67 100 12/29/18 04:27 12/29/18 04:27 12/29/18 04:27 12/29/18 04:27 12/29/18 04:27 Laboratory Results - last 24 hr 12/27/18 21:40: Blood Type O Positive, Antibody Screen Negative, Crossmatch (AHG) See Detail 12/28/18 06:05: WBC 9.7, RBC 4.05 L, Hgb 11.6 L, Hct 34.5 L, MCV 85.3, MCH 28.6, MCHC 33.5, RDW 13.6, Plt Count 136 L, MPV 13.3 H, Neut % (Auto) 59.7, Lymph % (Auto) 31.5, [place] % (Auto) 4.0, Eos % (Auto) 4.3, Baso % (Auto) 0.5, Neut # (Auto) 5.8, Lymph # (Auto) 3.1, [place] # (Auto) 0.4, Eos # (Auto) 0.4, Baso # (Auto) 0.1 12/28/18 06:05: PT 9.7, INR 0.93, APTT 25.7, Fibrinogen 484, D-Dimer 1070 H* 12/28/18 06:05: Sodium 140, Potassium 3.6, Chloride 106, Carbon Dioxide 23, Anion Gap 14.6, BUN 6 L D, Creatinine 0.55, Estimated Creat Clear 114, Estimated GFR 131, Est GFR ( Amer) 158, Glucose 79 D, Uric Acid 4.5, Calcium 9.0, AST 71 H, ALT 122 H, Lactate Dehydrogenase 134 12/28/18 09:20: Urine Opiates Screen Negative, Urine Methadone Screen Negative, Ur Barbituates Screen Negative, Ur Phencyclidine Scrn Negative, Ur Amphetamines Screen Negative, U Benzodiazepines Scrn Negative, Urine Cocaine Screen Negative, U Marijuana (THC) Screen Negative 12/28/18 09:41: Cord ABG pH 7.35 12/28/18 16:05: Hgb 10.1 L D, Hct 32.4 L 12/28/18 18:55: Hgb 8.9 L D, Hct 28.3 L 12/28/18 20:50: Hgb 8.7 L, Hct 25.9 L I & O for Last 24 hours: Intake & Output 12/26/18 12/27/18 12/28/18 12/29/18 11:59 11:59 11:59 11:59 Intake Total 900 / 900 Balance 900 / 900 Weight 223 lb Assessment and Plan (1) Previous complicated by -induced hypertension in first trimester, antepartum Current visit: Yes Status: Acute Category: Medical Code(s): O09.891 - Supervision of other high risk pregnancies, first trimester (2) Gestational hypertension Current visit: Yes Status: Acute Category: Medical Code(s): O13.9 - Gestational [-induced] hypertension without significant proteinuria, unspecified trimester (3) Elevated liver enzymes Current visit: Yes Status: Acute Category: Medical Code(s): R74.8 - Abnormal levels of other serum enzymes
[2018-12-29 06:50] LABS: Hemoglobin 7.7 g/dL (12.2-16.2)
[2018-12-29 06:51] LABS: Hematocrit 23.6 % (37.0-47.0)
[2018-12-29 13:24] LABS: Hematocrit 28.3 % (37.0-47.0)
[2018-12-29 13:42] LABS: Hemoglobin 9.3 g/dL (12.2-16.2)
--- NOTE | 2018-12-29 14:47 | Progress Note ---
Internal Medicine - PN: Subj *Date: 12/29/18 (The patient has now been transfused 2 units of packed cells and feels much better. Her hemoglobin is 9.3 g. Her blood pressure is stable. Impression: stable.) *Time: 14:45 Exam Vital signs and Labs for Last 24 Hours: Temp Pulse Resp BP Pulse Ox 98.5 F 107 H 20 113/74 98 12/29/18 12:50 12/29/18 12:50 12/29/18 12:50 12/29/18 12:50 12/29/18 12:50 Laboratory Results - last 24 hr 12/27/18 21:40: Blood Type O Positive, Antibody Screen Negative, Crossmatch (AHG) See Detail 12/28/18 16:05: Hgb 10.1 L D, Hct 32.4 L 12/28/18 18:55: Hgb 8.9 L D, Hct 28.3 L 12/28/18 20:50: Hgb 8.7 L, Hct 25.9 L 12/29/18 06:24: Hgb 7.7 L*, Hct 23.6 L* 12/29/18 13:15: Hgb 9.3 L D, Hct 28.3 L I & O for Last 24 hours: Intake & Output 12/27/18 12/28/18 12/29/18 12/30/18 11:59 11:59 11:59 11:59 Intake Total 900 / 900 52.07 / 52.07 Output Total 450 / 450 400 / 400 Balance 900 / 900 -397.93 / -397.93 -400 / -400 Weight 223 lb Assessment and Plan (1) Previous complicated by -induced hypertension in first trimester, antepartum Current visit: Yes Status: Acute Category: Medical Code(s): O09.891 - Supervision of other high risk pregnancies, first trimester (2) Gestational hypertension Current visit: Yes Status: Acute Category: Medical Code(s): O13.9 - Gestational [-induced] hypertension without significant proteinuria, unspecified trimester (3) Elevated liver enzymes Current visit: Yes Status: Acute Category: Medical Code(s): R74.8 - Abnormal levels of other serum enzymes
--- OUTSIDE RECORDS SUMMARY | 2018-12-29 15:17 | External Medical Summary | Continuity of Care Document ---
:1990 Author Organization [facility] Address [address] [facility] [address] t PAULINE [facility] Phone Care Team Providers Name Role Phone Morales Attending Provider Mona Tran Primary Care Provider Chelita Attending Provider Soren Soto II Primary Care Provider John Attending Provider Allergies, Adverse Reactions, Alerts No known allergies. Medications Medication Status Dose Units Route Sig Qty Days Start End Instruct ions Date Date Acetaminophen Active 1 TAB Oral Q8H 07 January With Codeine 2018 11:58am Problems Active Problems Medical Problem Onset Date Status Avulsion fracture of lateral Active malleolus Gestational hypertension Active False labor Active Active Active Elevated liver enzymes Active Procedures Procedure Date Performed Status Group B Streptococcus Screen December 11, 2018 completed (PRASANNA) US OB biophysical profile December 24, 2018 completed US OB BPP w/Fet-Mat & S/D December 17, 2018 completed XR ankle wt bearing RT min 3V November 13, 2018 completed XR ankle RT min 3V October 15, 2018 completed Relevant Diagnostic Tests and/or Laboratory Data Laboratory Results Test Date/Time Result Interpretation Reference Result Perfo rming Range Comment Site Urine Color September Yellow 2018 3:43pm Urine Color Janet Dark Yellow 2018 3:33pm Urine Color Janet Yellow 2018 1:40pm Urine Color October Yellow 2018 3:37pm Urine Color October Yellow 2018 1:54pm Urine Color November Yellow 2018 3:14pm Urine Color November Yellow 2018 12:07pm Urine [place] Clear Appearance 2018 3:43pm Urine Janet Clear Appearance 2018 3:33pm Urine Janet Clear Appearance 2018 1:40pm Urine October Clear Appearance 2018 3:37pm Urine October Clear Appearance 2018 1:54pm Urine November Clear Appearance 2018 3:14pm Urine November Clear Appearance 2018 12:07pm Urine Glucose September Negative (UA) 2018 3:43pm Urine Glucose Janet Negative (UA) 2018 3:33pm Urine Glucose Janet Negative (UA) 2018 1:40pm Urine Glucose October Negative (UA) 2018 3:37pm Urine Glucose October Negative (UA) 2018 1:54pm Urine Glucose November Negative (UA) 2018 3:14pm Urine Glucose November Negative (UA) 2018 12:07pm Urine Bilirubin September negative 2018 3:43pm Urine Bilirubin Janet negative 2018 3:33pm Urine Bilirubin Janet negative 2018 1:40pm Urine Bilirubin October negative 2018 3:37pm Urine Bilirubin October negative 2018 1:54pm Urine Bilirubin November negative 2018 3:14pm Urine Bilirubin November negative 2018 12:07pm Urine Ketones [place] Negative 2018 mg/dL 3:43pm Urine Ketones Janet Negative 2018 mg/dL 3:33pm Urine Ketones Janet Negative 2018 mg/dL 1:40pm Urine Ketones October Negative 2018 mg/dL 3:37pm Urine Ketones October Negative 2018 mg/dL 1:54pm Urine Ketones November Negative 2018 mg/dL 3:14pm Urine Ketones November Negative 2018 mg/dL 12:07pm Urine Specific [place] 1.015 [place] 2018 3:43pm Urine Specific Janet 1.030 [place] 2018 3:33pm Urine Specific Janet 1.020 [place] 2018 1:40pm Urine Specific October 1.015 [place] 2018 3:37pm Urine Specific October 1.015 [place] 2018 1:54pm Urine Protein November Negative 2018 3:14pm Urine Protein November Negative 2018 12:07pm Urine Blood [place] negative 2018 3:43pm Urine Blood Janet negative 2018 3:33pm Urine Blood Janet negative 2018 1:40pm Urine Blood October negative 2018 3:37pm Urine Blood October negative 2018 1:54pm Urine pH November 7.0 2018 3:14pm Urine pH November 7.0 2018 12:07pm Urine pH [place] 7.0 2018 3:43pm Urine pH Janet 6.0 2018 3:33pm Urine pH Janet 6.5 2018 1:40pm Urine pH October 7.0 2018 3:37pm Urine pH October 7.5 2018 1:54pm Urine Blood November negative 2018 3:14pm Urine Blood November negative 2018 12:07pm Urine Protein [place] Negative 2018 3:43pm Urine Protein Janet Negative 2018 3:33pm Urine Protein Janet Negative 2018 1:40pm Urine Protein October Negative 2018 3:37pm Urine Protein October Negative 2018 1:54pm Urine Specific November 1.020 [place] 2018 3:14pm Urine Specific November 1.020 [place] 2018 12:07pm Urine [place] 0.2 Urobilinogen 2018 Dipstick 3:43pm Urine Janet 1 Urobilinogen 2018 Dipstick 3:33pm Urine Janet 0.2 Urobilinogen 2018 Dipstick 1:40pm Urine October 0.2 Urobilinogen 2018 Dipstick 3:37pm Urine October 0.2 Urobilinogen 2018 Dipstick 1:54pm Urine November 0.2 Urobilinogen 2018 Dipstick 3:14pm Urine November 0.2 Urobilinogen 2018 Dipstick 12:07pm Urine Nitrate September Negative 2018 3:43pm Urine Nitrate Janet Negative 2018 3:33pm Urine Nitrate Janet Negative 2018 1:40pm Urine Nitrate October Negative 2018 3:37pm Urine Nitrate October Negative 2018 1:54pm Urine Nitrate November Negative 2018 3:14pm Urine Nitrate November Negative 2018 12:07pm Urine Leukocyte [place] Negative Esterase 2018 3:43pm Urine Leukocyte Janet Negative Esterase 2018 3:33pm Urine Leukocyte Janet Negative Esterase 2018 1:40pm Urine Leukocyte October Negative Esterase 2018 3:37pm Urine Leukocyte October Negative Esterase 2018 1:54pm Urine Leukocyte November Negative Esterase 2018 3:14pm Urine Leukocyte November Negative Esterase 2018 12:07pm White Blood October 10.7 K/mm3 4.8-10.8 [facility], [address] [place] [address] 36 E Count 2018 [place] [address] 3:59pm White Blood October 10.9 K/mm3 4.8-10.8 [facility], [address] [place] [address] 36 E Count 2018 [place] [address] 3:08pm White Blood November 11.9 K/mm3 4.8-10.8 [facility], [address] [place] [address] 36 E Count 2018 [place] [address] 12:30pm White Blood November 13.1 K/mm3 4.8-10.8 [facility], [address] [place] [address] 36 E Count 2018 [place] [address] 4:00pm Red Blood Count November 4.20 M/mm3 4.20-5.40 [facility], [address] [place] [address] 36 E 2018 [place] [address] 3:59pm Red Blood Count November 4.28 M/mm3 4.20-5.40 [facility], [address] [place] [address] 36 E 2018 [place] [address] 3:08pm Red Blood Count December 4.15 M/mm3 4.20-5.40 [facility], [address] [place] [address] 36 E 2018 [place] [address] 12:30pm Red Blood Count December 4.23 M/mm3 4.20-5.40 [facility], [address] [place] [address] 36 E 2018 [place] [address] 4:00pm Hemoglobin November 11.4 g/dL 12.2-16.2 [facility], [address] [place] [address] 36 [address] 2018 [place] [address] 3:59pm Hemoglobin November 12.2 g/dL 12.2-16.2 [facility], [address] [place] [address] 36 E 2018 [place] [address] 3:08pm Hemoglobin December 11.8 g/dL 12.2-16.2 [facility], [address] [place] [address] E 2018 [place] [address] 12:30pm Hemoglobin December 12.1 g/dL 12.2-16.2 [facility], [address] [place] [address] 36 [address] 2018 [place] [address] 4:00pm Hematocrit November 37.1 % 37.0-47.0 [facility], [address] [place] [address] E 2018 [place] [address] 3:59pm Hematocrit November 36.6 % 37.0-47.0 [facility], [address] [place] [address] 36 E 2018 [place] [address] 3:08pm Hematocrit December 35.4 % 37.0-47.0 [facility], [address] [place] [address] E 2018 [place] [address] 12:30pm Hematocrit December 35.9 % 37.0-47.0 [facility], [address] [place] [address] E 2018 [place] [address] 4:00pm Mean November 88.4 fl 81-99 [facility], [address] [place] [address] E Corpuscular 2018 Svitlana CARPENTER 52381 Volume 3:59pm Mean November 85.6 fl -99 [facility], [address] [place] [address] E Corpuscular 2018 Svitlana CARPENTER 75503 Volume 3:08pm Mean December 85.5 fl -99 [facility], [address] [place] [address] E Corpuscular 2018 Amadeo CARPENTER 20596 Volume 12:30pm Mean December 84.9 fl 8199 [facility], [address] [place] [address] E Corpuscular 2018 Amadeo CARPENTER 18256 Volume 4:00pm Mean November 27.2 pg 27.0-31.2 [facility], [address] [place] [address] E Corpuscular 2018 Svitlana CARPENTER 15109 Hemoglobin 3:59pm Mean November 28.5 pg 27.0-31.2 [facility], [address] [place] [address] E Corpuscular 2018 Svitlana CARPENTER 41033 Hemoglobin 3:08pm Mean December 28.5 pg 27.0-31.2 [facility], [address] [place] [address] E Corpuscular 2018 Amadeo CARPENTER 90109 Hemoglobin 12:30pm Mean December 28.7 pg 27.0-31.2 [facility], [address] [place] [address] E Corpuscular 2018 Amadeo CARPENTER 93018 Hemoglobin 4:00pm Mean November 30.8 g/dL 31.8-35.4 [facility], [address] [place] [address] E Corpuscular 2018 Svitlana CARPENTER 60402 Hemoglobin 3:59pm Concent Mean November 33.3 g/dL 31.8-35.4 [facility], [address] [place] [address] E Corpuscular 2018 Svitlana CARPENTER 81984 Hemoglobin 3:08pm Concent Mean December 33.4 g/dL 31.8-35.4 [facility], [address] [place] [address] E Corpuscular 2018 Amadeo CARPENTER 59118 Hemoglobin 12:30pm Concent Mean December 33.8 g/dL 31.8-35.4 [facility], [address] [place] [address] E Corpuscular 2018 Amadeo CARPENTER 85740 Hemoglobin 4:00pm Concent Red Cell November 13.9 % 11.5-17.5 [facility], [address] [place] [address] E Distribution 2018 Tyler CARPENTER 13475 Width 3:59pm Red Cell November 13.4 % 11.5-17.5 [facility], [address] [place] [address] E Distribution 2018 Tyler CARPENTER 30034 Width 3:08pm Red Cell December 13.5 % 11.5-17.5 [facility], [address] [place] [address] E Distribution 2018 Svitlana CARPENTER 47575 Width 12:30pm Red Cell November 13.5 % 11.5-17.5 [facility], [address] [place] [address] E Distribution 2018 Svitlana CARPENTER 83810 Width 4:00pm Platelet Count November 171 K/mm3 142-424 [facility], [address] [place] [address] 36 E 2018 [place] [address] 3:59pm Platelet Count November 143 K/mm3 142-424 [facility], [address] [place] [address] E 2018 [place] [address] 3:08pm Platelet Count December 132 K/mm3 142-424 [facility], [address] [place] [address] E 2018 [place] CARPENTER 28415 12:30pm Platelet Count December 141 K/mm3 142-424 [facility], [address] [place] [address] E 2018 [place] CARPENTER 76700 4:00pm Mean Platelet November 12.3 fl 7.4-10.4 [facility], [address] [place] [address] E Volume 2018 [place] CARPENTER 43009 3:59pm Mean Platelet November 13.2 fl 7.4-10.4 [facility], [address] [place] [address] E Volume 2018 [place] [address] 3:08pm Mean Platelet December 12.9 fl 7.4-10.4 [facility], [address] [place] [address] E Volume 2018 [place] CARPENTER 86083 12:30pm Mean Platelet December 12.9 fl 7.4-10.4 [facility], [address] [place] [address] E Volume 2018 [place] CARPENTER 23225 4:00pm Neutrophils (%) November 67.2 % 37.0-80.0 [facility], [address] [place] [address] E (Auto) 2018 [place] [address] 3:59pm Neutrophils (%) November 66.4 % 37.0-80.0 [facility], [address] [place] [address] E (Auto) 2018 [place] [address] 3:08pm Neutrophils (%) December 70.0 % 37.0-80.0 [facility], [address] [place] [address] E (Auto) 2018 [place] CARPENTER 72854 12:30pm Neutrophils (%) December 69.1 % 37.0-80.0 [facility], [address] [place] [address] E (Auto) 2018 [place] [address] 4:00pm Lymphocytes (%) November 24.9 % 10-50 [facility], [address] [place] [address] E (Auto) 2018 [place] [address] 3:59pm Lymphocytes (%) November 25.4 % 50 [facility], [address] [place] [address] E (Auto) 2018 [place] [address] 3:08pm Lymphocytes (%) December 23.5 % 50 [facility], [address] [place] [address] E (Auto) 2018 [place] [address] 12:30pm Lymphocytes (%) December 22.3 % 50 [facility], [address] [place] [address] E (Auto) 2018 [place] [address] 4:00pm Monocytes (%) November 4.2 % 1.7-9.3 [facility], [address] [place] [address] E (Auto) 2018 [place] [address] 3:59pm Monocytes (%) November 4.3 % 1.7-9.3 [facility], [address] [place] [address] E (Auto) 2018 [place] [address] 3:08pm Monocytes (%) December 3.9 % 1.7-9.3 [facility], [address] [place] [address] E (Auto) 2018 [place] [address] 12:30pm Monocytes (%) December 4.2 % 1.7-9.3 [facility], [address] [place] [address] E (Auto) 2018 [place] [address] 4:00pm Eosinophils (%) November 3.2 % 0.1-12.0 [facility], [address] [place] [address] E (Auto) 2018 [place] [address] 3:59pm Eosinophils (%) November 3.2 % 0.1-12.0 [facility], [address] [place] [address] E (Auto) 2018 [place] [address] 3:08pm Eosinophils (%) December 2.4 % 0.1-12.0 [facility], [address] [place] [address] 36 E (Auto) 2018 [place] [address] 12:30pm Eosinophils (%) November 4.1 % 0.1-12.0 [facility], [address] [place] [address] E (Auto) 2018 [place] [address] 4:00pm Basophils (%) November 0.5 % 0.1-2.0 [facility], [address] [place] [address] E (Auto) 2018 [place] [address] 3:59pm Basophils (%) November 0.6 % 0.1-2.0 [facility], [address] [place] [address] E (Auto) 2018 [place] [address] 3:08pm Basophils (%) December 0.3 % 0.1-2.0 [facility], [address] [place] [address] E (Auto) 2018 [place] [address] 12:30pm Basophils (%) December 0.3 % 0.1-2.0 [facility], [address] [place] [address] E (Auto) 2018 [place] [address] 4:00pm Neutrophils # November 7.2 K/mm3 1.8-7.8 [facility], [address] [place] [address] E (Auto) 2018 [place] [address] 3:59pm Neutrophils # November 7.3 K/mm3 1.8-7.8 [facility], [address] [place] [address] E (Auto) 2018 [place] [address] 3:08pm Neutrophils # December 8.4 K/mm3 1.8-7.8 [facility], [address] [place] [address] E (Auto) 2018 [place] [address] 12:30pm Neutrophils # December 9.1 K/mm3 1.8-7.8 [facility], [address] [place] [address] E (Auto) 2018 [place] [address] 4:00pm Lymphocytes # November 2.7 K/mm3 0.7-4.5 [facility], [address] [place] [address] E (Auto) 2018 [place] [address] 3:59pm Lymphocytes # November 2.8 K/mm3 0.7-4.5 [facility], [address] [place] [address] E (Auto) 2018 [place] CARPENTER 89778 3:08pm Lymphocytes # November 2.8 K/mm3 0.7-4.5 [facility], [address] [place] [address] E (Auto) 2018 [place] [address] 12:30pm Lymphocytes # November 2.9 K/mm3 0.7-4.5 [facility], [address] [place] [address] E (Auto) 2018 [place] CARPENTER 63678 4:00pm Monocytes # October 0.5 K/mm3 0.1-1.0 [facility], [address] [place] [address] E (Auto) 2018 [place] CARPENTER 94554 3:59pm Monocytes # October 0.5 K/mm3 0.1-1.0 [facility], [address] [place] [address] E (Auto) 2018 [place] CARPENTER 61344 3:08pm Monocytes # November 0.5 K/mm3 0.1-1.0 [facility], [address] [place] [address] E (Auto) 2018 [place] CARPENTER 43688 12:30pm Monocytes # November 0.6 K/mm3 0.1-1.0 [facility], [address] [place] [address] E (Auto) 2018 [place] CARPENTER 84217 4:00pm Eosinophils # October 0.3 K/mm3 0.0-0.4 [facility], [address] [place] [address] E (Auto) 2018 [place] CARPENTER 75866 3:59pm Eosinophils # October 0.3 K/mm3 0.0-0.4 [facility], [address] [place] [address] E (Auto) 2018 [place] CARPENTER 98411 3:08pm Eosinophils # November 0.3 K/mm3 0.0-0.4 [facility], [address] [place] [address] E (Auto) 2018 [place] CARPENTER 81732 12:30pm Eosinophils # November 0.5 K/mm3 0.0-0.4 [facility], [address] [place] [address] E (Auto) 2018 [place] CARP[place] 96513 4:00pm Basophils # October 0.1 K/mm3 0-0.2 [facility], [address] [place] [address] E (Auto) 2018 [place] CARPENTER 07058 3:59pm Basophils # November 0.1 K/mm3 0-0.2 [facility], [address] [place] [address] E (Auto) 2018 [place] CARPENTER 89971 3:08pm Basophils # December 0.0 K/mm3 0-0.2 [facility], [address] [place] [address] E (Auto) 2018 [place] CARP[place] 90228 12:30pm Basophils # December 0.0 K/mm3 0-0.2 [facility], [address] [place] [address] E (Auto) 2018 [place] CARP[place] 46628 4:00pm Prothrombin November 9.4 seconds 9.4-11.8 [facility], [address] [place] [address] E Time 2018 [place] CARPENTER 48477 3:59pm Prothrombin November 9.4 seconds 9.4-11.8 [facility], [address] [place] [address] E Time 2018 [place] CARPENTER 43291 3:08pm Prothrombin November 9.4 seconds 9.4-11.8 [facility], [address] [place] [address] E Time 2018 [place] CARPENTER 70621 12:30pm Prothrombin November 9.4 seconds 9.4-11.8 [facility], [address] [place] [address] E Time 2018 [place] CARPENTER 93463 4:00pm Prothromb Time November 0.90 0.9-1.1 [facility], [address] [place] [address] E International 2018 INDICATION Areli CARPENTER 64571 Ratio 3:59pm INR RANGETherapy for DVT, PE, Atrial Fib, 2.0-3.0Prophy laxis for VTE.Therapy for Mechanical Heart Valve, 2.5-3.5Preven tion of Sytemic Emolism secondary to AMI. Prothromb Time November 0.90 0.9-1.1 [facility], [address] [place] [address] E International 2018 INDICATION Areli CARPENTER 91069 Ratio 3:08pm INR RANGETherapy for DVT, PE, Atrial Fib, 2.0-3.0Prophy laxis for VTE.Therapy for Mechanical Heart Valve, 2.5-3.5Preven tion of Sytemic Emolism secondary to AMI. Prothromb Time December 0.90 0.9-1.1 [facility], [address] [place] [address] E International 2018 [place] [address] Ratio 12:30pm INR RANGETherapy for DVT, PE, Atrial Fib, 2.0-3.0Prophy laxis for VTE.Therapy for Mechanical Heart Valve, 2.5-3.5Preven tion of Sytemic Emolism secondary to AMI. Prothromb Time December 0.90 0.9-1.1 [facility], [address] [place] [address] E International 2018 [place] [address] Ratio 4:00pm INR RANGETherapy for DVT, PE, Atrial Fib, 2.0-3.0Prophy laxis for VTE.Therapy for Mechanical Heart Valve, 2.5-3.5Preven tion of Sytemic Emolism secondary to AMI. Activated November 28.0 23.6-34.0 [facility], [address] [place] [address] E Partial 2018 [place] [address] Thromboplast 3:59pm Time Activated November 27.5 23.6-34.0 [facility], [address] [place] [address] E Partial 2018 [place] [address] Thromboplast 3:08pm Time Activated December 26.7 23.6-34.0 [facility], [address] [place] [address] E Partial 2018 [place] [address] Thromboplast 12:30pm Time Activated December 25.9 23.6-34.0 [facility], [address] [place] [address] E Partial 2018 [place] [address] Thromboplast 4:00pm Time Fibrinogen November 500 mg/dL 204-500 [facility], [address] [place] [address] E 2018 [place] [address] 3:59pm Fibrinogen November 500 mg/dL 204-500 [facility], [address] [place] [address] E 2018 [place] [address] 3:08pm Fibrinogen December 470 mg/dL 204-500 [facility], [address] [place] [address] E 2018 [place] [address] 12:30pm Fibrinogen December 500 mg/dL 204-500 [facility], [address] [place] [address] E 2018 [place] [address] 4:00pm D-Dimer October 802 ng/mL 0-400 RESULTS [facility], [address] [place] [address] 36 E [address] Tyler CARPENTER 82764 3:59pm HARPEL @BY Chantell Burnette at 1720 D-Dimer October 950 ng/mL 0-400 RESULTS [facility], [address] [place] [address] 36 E 2018 CALLED TO Paradise CARPENTER 45899 3:08pm GRACE KILGORE RN @BY Elisa Christensen MLS at 1554 D-Dimer December 1069 ng/mL 0-400 RESULTS [facility], [address] [place] [address] 36 E 2018 CALLED TO Paradise Zaman31 12:30pm MFURNISH@BY Chantell Burnette at 1539 D-Dimer November 557 ng/mL 0-400 RESULTS [facility], [address] [place] [address] 36 E [address] Svitlana CARPENTER [id number] 4:00pm OSBORN @BY Chantell Burnette at 1755 Urine Color October Yellow Yellow [facility], [address] [place] [address] 36 E 2018 [place] CARPENTER 64195 8:50pm Urine Color November Yellow Yellow [facility], [address] [place] [address] 36 E 2018 [place] CARPENTER 13750 11:50am Urine October Clear Clear [facility], [address] [place] [address] 36 E Appearance 2018 Amadeo CARPENTER 13742 8:50pm Urine November Clear Clear [facility], [address] [place] [address] 36 E Appearance 2018 [place] CARPENTER 40417 11:50am Urine pH October 6.5 5.0-8.5 [facility], [address] [place] [address] 36 E 2018 [place] CARPENTER 91789 8:50pm Urine pH November 7.0 5.0-8.5 [facility], [address] [place] [address] 36 E 2018 [place] CARPENTER 35587 11:50am Urine Specific October >= 1.030 1.005-1.03 [facility], [address] [place] [address] 36 E Cavendish 2018 0 [place] CARPENTER 47522 8:50pm Urine Specific November 1.010 1.005-1.03 [facility], [address] [place] [address] 36 E Cav[place]ish 2018 0 [place] CARPENTER 34087 11:50am Urine Protein October Negative Negative [facility], [address] [place] [address] 36 E 2018 [place] CARPENTER 30494 8:50pm Urine Protein November Negative Negative [facility], [address] [place] [address] 36 E 2018 [place] CARPENTER 49284 11:50am Urine Glucose October Negative Negative [facility], [address] [place] [address] 36 E (UA) 2018 [place] CARPENTER 14477 8:50pm Urine Glucose November Negative Negative [facility], [address] [place] [address] 36 E (UA) 2018 [place] CARPENTER 98528 11:50am Urine Ketones October 2+ Negative [facility], [address] [place] [address] 36 E 2018 [place] CARPENTER 84949 8:50pm Urine Ketones November Negative Negative [facility], [address] [place] [address] 36 E 2018 [place] CARPENTER 26570 11:50am Urine Blood October Negative Negative [facility], [address] [place] [address] 36 E 2018 [place] CARPENTER 57917 8:50pm Urine Blood November Negative Negative [facility], [address] [place] [address] 36 E 2018 [place] CARPENTER 96549 11:50am Urine Nitrate October Negative Negative [facility], [address] [place] [address] 36 E 2018 [place] CARPENTER 54105 8:50pm Urine Nitrate November Negative Negative [facility], [address] [place] [address] 36 E 2018 [place] CAR[place] [id number] 11:50am Urine Bilirubin October Negative Negative [facility], [address] [place] [address] 36 E 2018 [place] 14770 8:50pm Urine Bilirubin November Negative Negative [facility], [address] [place] [address] 36 E 2018 [place] 46983 11:50am Urine October 0.2 EU/dl [facility], [address] [place] [address] 36 E Urobilinogen 2018 [place] 77349 8:50pm Urine November 0.2 EU/dl [facility], [address] [place] [address] 36 E Urobilinogen 2018 Svitlana [place] 50724 11:50am Urine Leukocyte October Negative Negative [facility], [address] [place] [address] 36 E Esterase 2018 [place] 83134 8:50pm Urine Leukocyte November Negative Negative [facility], [address] [place] [address] 36 E Esterase 2018 [place] 79939 11:50am Urine RBC November Occasional [facility], [address] [place] [address] 36 E 2018 #/[place] [address] 11:50am Urine WBC October Occasional [facility], [address] [place] [address] 36 E 2018 #/hpf [place] 39079 8:50pm Urine WBC November 5-10 #/hpf [facility], [address] [place] [address] 36 E 2018 [place] 27085 11:50am Urine Squamous November 3-5 #/hpf [facility], [address] [place] [address] E Epithelial 2018 Amadeo CARPENTER [address] Cells 8:50pm Urine Squamous December 28- #/hpf [facility], [address] [place] [address] 36 E Epithelial 2018 [place] 77985 Cells 11:50am Urine Bacteria November Trace /lpf NONE [facility], [address] [place] [address] 36 E 2018 [place] 60526 8:50pm Urine Bacteria November Trace /lpf NONE [facility], [address] [place] [address] 36 E 2018 [place] 32786 11:50am Urine Mucus December 1+ /lpf None [facility], [address] [place] [address] 36 E 2018 [place] 20951 11:50am Urine Total November 1499 mL 600-1600 [facility], [address] [place] [address] E Volume 2018 [place] 51240 8:30am Urine Total November 285 mg/24 40-90 [facility], [address] [place] [address] 36 E Protein 24 Hour 2018 hr Leah jerel CARPENTER 38350 8:30am Urine Total November 19.0 mg/dL 0.0-11.9 [facility], [address] [place] [address] 36 E Protein 2018 [place] 23864 8:30am Sodium Level November 138 mmol/L 136-145 [facility], [address] [place] [address] 36 E 2018 [place] 48813 3:59pm Sodium Level November 139 mmol/L 136-145 [facility], [address] [place] [address] 36 E 2018 [place] 82542 3:08pm Sodium Level November 137 mmol/L 136-145 [facility], [address] [place] [address] 36 E 2018 [place] 55517 12:30pm Sodium Level November 138 mmol/L 136-145 [facility], [address] [place] [address] 36 E 2018 [place] 10363 4:00pm Potassium Level November 4.1 mmoL/L 3.5-5.1 [facility], [address] [place] [address] E 2018 [place] 15291 3:59pm Potassium Level November 3.6 mmoL/L 3.5-5.1 [facility], [address] [place] [address] 36 E 2018 [place] 07371 3:08pm Potassium Level November 3.6 mmoL/L 3.5-5.1 [facility], [address] [place] [address] 36 E 2018 [place] 27279 12:30pm Potassium Level November 4.0 mmoL/L 3.5-5.1 [facility], [address] [place] [address] 36 E 2018 [place] 42401 4:00pm Chloride Level November 105 mmol/L 98-107 [facility], [address] [place] [address] E 2018 [place] 15052 3:59pm Chloride Level November 107 mmol/L 98-107 [facility], [address] [place] [address] 36 E 2018 [place] [address]3038 3:08pm Chloride Level November 105 mmol/L 98-107 [facility], [address] [place] [address] 36 E 2018 [place] 47675 12:30pm Chloride Level November 106 mmol/L 98-107 [facility], [address] [place] [address] 36 E 2018 [place] 38107 4:00pm Carbon Dioxide November 23 mmol/L 21.0-32.0 [facility], [address] [place] [address] E Level 2018 [place] 39627 3:59pm Carbon Dioxide November 23 mmol/L 21.0-32.0 [facility], [address] [place] [address] E Level 2018 [place] CAR[place] 83617 3:08pm Carbon Dioxide November 19 mmol/L 21.0-32.0 [facility], [address] [place] [address] 36 E Level 2018 [place] [address] 12:30pm Carbon Dioxide November 22 mmol/L 21.0-32.0 [facility], [address] [place] [address] 36 E Level 2018 [place] [address] 4:00pm Anion Gap November 14.1 mEq/L 07-02 [facility], [address] [place] [address] 36 E 2018 [place] [address] 3:59pm Anion Gap November 12.6 mEq/L 07-02 [facility], [address] [place] [address] 36 E 2018 [place] [address] 3:08pm Anion Gap November 16.6 mEq/L 07-02 [facility], [address] [place] [address] 36 E 2018 [place] [address] 12:30pm Anion Gap November 14.0 mEq/L 07-02 [facility], [address] [place] [address] 36 E 2018 [place] [address] 4:00pm Blood Urea November 8 mg/dL 09-04 [facility], [address] [place] [address] E Nitrogen 2018 [place] [address] 3:59pm Blood Urea November 5 mg/dL 09-04 [facility], [address] [place] [address] E Nitrogen 2018 [place] [address] 3:08pm Blood Urea November 7 mg/dL 09-04 [facility], [address] [place] [address] 36 E Nitrogen 2018 [place] [address] 12:30pm Blood Urea November 7 mg/dL 09-04 [facility], [address] [place] [address] 36 E Nitrogen 2018 [place] [address] 4:00pm Creatinine November 0.49 mg/dL 0.55-1.02 [facility], [address] [place] [address] 36 E 2018 [place] [address] 3:59pm Creatinine November 0.41 mg/dL 0.55-1.02 [facility], [address] [place] [address] 36 E 2018 [place] [address] 3:08pm Creatinine November 0.40 mg/dL 0.55-1.02 [facility], [address] [place] [address] 36 E 2018 [place] [address] 12:30pm Creatinine November 0.47 mg/dL 0.55-1.02 [facility], [address] [place] [address] 36 E 2018 [place] [address] 4:00pm Estimated October 320 mL/min 0-300 [facility], [address] [place] [address] 36 E Creatinine 2018 [place] [address] Clearance 3:08pm Estimated November 157 mL/min 0-300 [facility], [address] [place] [address] 36 E Creatinine 2018 [place] [address] Clearance 12:30pm Estimated GFR November 181 ML/MIN >59 [facility], [address] [place] [address] 36 E ( 2018 [place] [address] Dominican) 3:59pm Estimated GFR November 222 ML/MIN >59 [facility], [address] [place] [address] E ( 2018 [place] [address] Dominican) 3:08pm Estimated GFR December 228 ML/MIN >59 [facility], [address] [place] [address] E ( 2018 [place] [address] Dominican) 12:30pm Estimated GFR December 190 ML/MIN >59 [facility], [address] [place] [address] 36 E ( 2018 [place] [address] Dominican) 4:00pm Estimat November 149 ml/min >59 [facility], [address] [place] [address] E Glomerular 2018 [place] [address] Filtration Rate 3:59pm Estimat November 183 ml/min >59 [facility], [address] [place] [address] 36 E Glomerular 2018 [place] [address] Filtration Rate 3:08pm Estimat December 189 ml/min >59 [facility], [address] [place] [address] E Glomerular 2018 [place] [address] Filtration Rate 12:30pm Estimat December 157 ml/min >59 [facility], [address] [place] [address] 36 E Glomerular 2018 [place] [address] Filtration Rate 4:00pm Glucose Level November 86 mg/dL 74-106 [facility], [address] [place] [address] 36 E 2018 [place] [address] 3:59pm Glucose Level November 88 mg/dL 74-106 [facility], [address] [place] [address] 36 E 2018 [place] [address] 3:08pm Glucose Level December 79 mg/dL 74-106 [facility], [address] [place] [address] 36 E 2018 [place] 370[address] 12:30pm Glucose Level December 82 mg/dL 74-106 [facility], [address] [place] [address] 36 E 2018 [place] [address] 4:00pm Glucose 1 Hour October 118 mg/dL 74-106 [facility], [address] [place] [address] 36 E 2018 [place] 26592 1:53pm Uric Acid November 2.9 mg/dL 2.6-7.2 [facility], [address] [place] [address] 36 E 2018 [place] [address] 3:59pm Uric Acid November 3.4 mg/dL 2.6-7.2 [facility], [address] [place] [address] E 2018 [place] [address] 3:08pm Uric Acid December 3.7 mg/dL 2.6-7.2 [facility], [address] [place] [address] 2018 [place] 12188 12:30pm Uric Acid December 3.5 mg/dL 2.6-7.2 [facility], [address] [place] [address] 2018 [place] 62848 4:00pm Calcium Level November 8.4 mg/dL 8.5-10.1 [facility], [address] [place] [address] 2018 [place] 86179 3:59pm Calcium Level November 8.5 mg/dL 8.5-10.1 [facility], [address] [place] [address] 2018 [place] [address] 3:08pm Calcium Level December 8.7 mg/dL 8.5-10.1 [facility], [address] [place] [address] 36 2018 [place] [address] 12:30pm Calcium Level December 9.0 mg/dL 8.5-10.1 [facility], [address] [place] [address] E 2018 [place] [address] 4:00pm Magnesium Level November 5.3 mg/dL 1.4-2.2 [facility], [address] [place] [address] 36 2018 [place] [address] 6:12am Magnesium Level November 1.3 mg/dL 1.4-2.2 [facility], [address] [place] [address] E 2018 [place] 66752 12:30pm Aspartate Amino October 27 U/L [facility], [address] [place] [address] E Transf 2018 [place] 50295 (AST/SGOT) 3:59pm Aspartate Amino October 24 U/L [facility], [address] [place] [address] E Transf 2018 [place] [address] (AST/SGOT) 3:08pm Aspartate Amino November 44 U/L [facility], [address] [place] [address] E Transf 2018 [place] [address] (AST/SGOT) 12:30pm Aspartate Amino November 46 U/L [facility], [address] [place] [address] E Transf 2018 [place] 64344 (AST/SGOT) 4:00pm Alanine November 42 U/L [facility], [address] [place] [address] E Aminotransferas 2018 Leah jerel CARPENTER 76136 e (ALT/SGPT) 3:59pm Alanine October 41 U/L [facility], [address] [place] [address] E Aminotransferas 2018 Leah jerel CARPENTER 88624 e (ALT/SGPT) 3:08pm Alanine November 92 U/L [facility], [address] [place] [address] E Aminotransferas 2018 Areli [place] PAULINE [address]01 e (ALT/SGPT) 12:30pm Alanine November 92 U/L [facility], [address] [place] [address] E Aminotransferas 2018 [place] CARP[place] 48649 e (ALT/SGPT) 4:00pm Urine Opiates November Negative [facility], [address] [place] [address] E Screen 2018 ng/mL [place] PAUL[place] [address]8769 8:40pm Urine Opiates December Negative [facility], [address] [place] [address] E Screen 2018 ng/[place] [address] 11:50am Urine October Negative [facility], [address] [place] [address] E Barbituates 2018 ng/[place] [address] Screen 8:40pm Urine November Negative [facility], [address] [place] [address] 36 E Barbituates 2018 ng/[place] [address] Screen 11:50am Urine October Negative [facility], [address] [place] [address] 36 E Phencyclidine 2018 ng/[place] [address] Screen 8:40pm Urine November Negative [facility], [address] [place] [address] 36 E Phencyclidine 2018 ng/[place] [address] Screen 11:50am Urine October Negative [facility], [address] [place] [address] E Amphetamines 2018 ng/[place] [address] Screen 8:40pm Urine November Negative [facility], [address] [place] [address] E Amphetamines 2018 ng/[place] [address] Screen 11:50am Urine Methadone November Negative [facility], [address] [place] [address] 36 E Screen 2018 ng/[place] [address] 8:40pm Urine Methadone November Negative [facility], [address] [place] [address] 36 E Screen 2018 ng/[place] [address] 11:50am Urine October Negative [facility], [address] [place] [address] 36 E Benzodiazepines 2018 ng/[place] [address] Screen 8:40pm Urine November Negative [facility], [address] [place] [address] 36 E Benzodiazepines 2018 ng/[place] [address] Screen 11:50am Urine Cocaine November Negative [facility], [address] [place] [address] 36 E Screen 2018 ng/[place] [address] 8:40pm Urine Cocaine November Negative [facility], [address] [place] [address] 36 E Screen 2018 ng/[place] [address] 11:50am Urine Marijuana November Negative [facility], [address] [place] [address] 36 E (THC) Screen 2018 ng/[place] [address] 8:40pm Urine Marijuana November Negative [facility], [address] [place] [address] 36 E (THC) Screen 2018 ng/[place] [address] 11:50am Microbiology Results Procedure Source Result Collection Result Result Performin g Date/Time Date/Time Comment Site Group B Vaginal Negative December 11November [facility], [address] [place] [address] E Streptococcus for Group B 2018 10:11am 2018 [place] [address] Screen (PRASANNA) Streptococc 6:49am us. Diagnostic Imaging Reports Report Dictated Date/Time Dictated By Status Radiology Report October 15, 2018 Hai Thomas MD completed 7:50pm [place] [address] [facility] [address] [place] [id number] XRay R eport Sig xavi Patient: Carissa Cruz R#: [id number] : 1990 Acct:[id number] Age/Sex: 28 / F ADM Date: 9 Loc: [facility] Attending Dr: Ordering Physician: Danisha Lindsey APRN Date of Service: 10/15/18 Procedure(s): XR ankle RT min 3V Accession Number(s): [id number] cc: Hai Thomas MD; Livan Tran MD~ [...] 10/15/2018 20:29 Radiology Report November 13, 2018 Hai Thomas MD completed 2:07pm [facility] [address] [facility] [address] [address] XRay R eport Sig xavi Patient: Carissa Cruz R#: [id number] : 1990 Acct:[id number] Age/Sex: 28 / F ADM Date: 9 Loc: [facility] Attending Dr: Lu Merlos DPM Ordering Physician: Lu Merlos DPM Date of Service: 11/13/18 Procedure(s): XR ankle wt bearing RT min 3V Accession Number(s): [id number] cc: Hai Thomas MD; John Soto II, [...] by Hai Thomas in [place] 11/13/2018 17:38 Radiology Report December 17, 2018 Hai Thomas MD completed 8:51am [place] [address]70 [place] [facility] [address] [address] Ultrasoun d Report Sig xavi Patient: Carissa Cruz#: [id number] : 1990 Acct:[id number] Age/Sex: 28 / F ADM Date: 9 Loc: OB 274-[address]: Hardeep Nielsen MD Ordering Physician: Hardeep Nielsen MD Date of Service: 12/17/18 Procedure(s): OB BPP w/Fet-Mat & S/D Accession Number(s): [id number] cc: Hai Thomas MD; Livan Tran MD~ PROCEDURE: US OB BPP W/FET-MAT S/D CLINICAL INDICATION: -induced hypertension on Mag citrate COMPARISON: No exams were available fo r comparison FINDINGS: Single viable intrauterine gestation. Cephalic position. Placenta: Anteriorplacenta grade 2. Amniotic fluid index is 11 cm. Cervical length is 3.5 cm. Cervix appe ars closed. SD ratio is 2.8 with a resistive index of 0.65 both less than 95 percentile. Biophysical profile is 8 o f 8. The cervix appears satisfactory. Close d and measuring 3.5 cm in length. Measurements: Average ultrasound age 34 week. Gestational Age 34 weeks 5 days Estimated due date by ultrasound age 11. Estimated weight 2,330 ggrams. BPD 34 weeks 4 days, OFD 33 weeks 2 day s, HC 33 weeks 4 days, AC 34 weeks 4 days, FL 33 weeks 1 day. Growth Percentile= 21 percent% Heart Rate = 117 bpm Cerebellum = Humerus = HC/AC is 0.98 CI is 0.81 FL/BPD is 0.75 FL/AC is 0.21 IMPRESSION: There is a single live fetus which is i n cephalic presentation with an average ultrasound age 34 weeks. Es timated weight is 2003 are 30 g which is 21st percentile. Bio physical profile is 8 of 8 with unremarkable umbilical artery eval uation and within normal amniotic fluid index of 11 cm Dictated by: Hai Thomas MD 12/17/2018 15:17 Electronically signed by Hai Thomas in [place] 12/17/2018 15:17 Radiology Report December 24, 2018 Hai Thomas MD completed 4:05pm [place] [address] [facility] [address] [place] [address] Ultrasoun d Report Sig xavi Patient: Carissa Cruz R#: [id number] : 1990 Acct:[id number] Age/Sex: 28 / F ADM Date: 9 Loc: RAD Attending Dr: Jameson Osborn MD Ordering Physician: aJmeson Osborn MD Date of Service: 12/24/18 Procedure(s): US OB biophysical profile Accession Number(s): [id number] cc: Hai Thomas MD; Livan Tran MD~ PROCEDURE: US OB BIOPHYSICAL PROFILE CLINICAL INDICATION: US OB BPP- Decrea sed Movement TECHNIQUE: FINDINGS: There is a single live fetus present wh ich is in breech presentation. heart and body motion noted with in FHR 123 beats per minute. The placenta is anterior and grade 1. The cervix measures 3.8 cm. The cervix does appear closed. Biometr ic measurements are not obtained. The amniotic fluid index is 17 cm. Amniotic fluid index: 17 cm Qualitative AFV: 2 breathing movements: 2 Gross body movements: 2 Tone: 2 Biophysical profile score: 8/8 IMPRESSION: Biophysical profile is 8 of 8. Breech position with amniotic fluid index of 17 cm Dictated by: Hai Thomas MD 12/24/2018 18:06 Electronically signed by Hai Thomas in [place] 12/24/2018 18:06 Health Concerns Concerns PIH ANTEPARTUM antepartum Advance Directives Advance Directive Response Recorded Date/Time Does the patient have an No December 16 019 1:53pm advanced directive on file? Living Will No December 16, 2018 1 :53pm Does the patient have an No December 11, 019 10:17am advanced directive on file? Living Will No December 11, 2018 1 0:17am Does the patient have an No October 28, 2018 3:36pm advanced directive on file? Living Will No October 28, 2018 3:36pm Does the patient have an No October 07 3:51pm advanced directive on file? Living Will No October 07, 2018 3: 51pm Does the patient have an No December 25 019 12:20pm advanced directive on file? Living Will No December 25, 2018 1 2:20pm Does the patient have an No November 13, 2018 3:30pm advanced directive on file? Living Will No November 13, 2018 3:30pm Chief Complaint and Reason for Visit Chief Complaint NST right ankle ao fell in hole 3:00 10/15/2018 Ankle injury LAB WORK NST Due Date 01/21 rapid hear t rate, hotflashes Fracture/dislocation follow- up RT ANKLE WT BEARING, 3V, AO 10/15/18 LAB WORK LAB WORK LAB WORK nst, 35wks nst, 35wks NST LAB WORK U/S nst, 36wks, possible labor PIH Reason for Visit Elevated liver enzymes Gestational hypertension [id number] Encounters Encounter Location(s) Arrival/Admit Date Discharge/Depart Date Provider(s) Departed [facility] Physician October 07, 2018 October 07, 2018 Giovani Nielsen , Physician/[facility]Just for 3:36pm 3:48pm MD Baker Visit Registered [facility] Physician October 07, 2018 October 07, 2018 Giovani Nielsen , Inpatient Group-Just for 3:53pm 4:35pm MD Davis Departed [facility] Physician October 15, 2018 October 15, 2018 null Emergency Group-Urgent 7:28pm 8:33pm Treatment Center Departed [facility] Physician October 17, 2018 October 17, 2018 Alaina Merlos , Physician/[facility]-Podiatry 7:56am 10:28am D[facility] Visit Departed [facility] Physician October 28, October 28, 2018 Sebastien Nielsen Physician/[facility]Just for 2018 3:25pm 3:36pm MD [facility] Visit Registered [facility] Physician October 30, Hardeep martinez , Clinical Group-Laboratory 2018 1:52pm MD Registered [facility] Physician November 08, November 08, 2018 Sebastien Nielsen Inpatient Group-Just for 2018 3:27pm 4:30pm [facility] Departed [facility] Physician November 11, November 11, 2018 Sebastien Nielsen Physician/[facility]Just for 2018 1:30pm 2:02pm MD [facility] Visit Departed [facility] Physician November 13, November 13, 2018 Golden Merlos , Physician/[facility]-Podiatry 2018 1:44pm 2:57pm DPM [facility] Visit Registered [facility] Physician November 13, Lu braxton , Clinical Group-Radiology 2018 1:53pm DPM Departed [facility] Physician November 13, November 13, 2018 Sebastien Nielsen Physician/[facility]Just for 2018 2:49pm 3:29pm MD [facility] Departed [facility] Physician November 14, November 14, 2018 Sebastien Nielsen Physician/[facility]Just for 2018 9:15am 9:45am MD [facility] Departed [facility] Physician December 01, 2018 December 01, 2018 Surendra Nielsen Physician/[facility]Just for 3:27pm 3:43pm [facility] Registered [facility] Physician December 01, 2018 Hardeep dixon Clinical Group-Laboratory 3:58pm Departed [facility] Physician December 04, 2018 December 04, 2018 Surendra Nielsen Physician/[facility]Just for 3:26pm 3:55pm [facility] Registered [facility] Physician December 06, 2018 Hardeep dixon Clinical Group-Laboratory 10:38am MD Departed [facility] Physician December 08, 2018 December 08, 2018 Surendra Nielsen Physician/[facility]-Just for 1:33pm 2:09pm MD [facility] Departed [facility] Physician December 11, 2018 December 11, 2018 Surendra Nielsen , Physician/[facility]-Just for 10:05am 10:31am [facility] Registered [facility] Physician December 11, 2018 Hardeep dixon Clinical Group-Lab Drop 11:21am MD Off to [facility] Departed [facility] Physician December 16, 2018 December 16, 2018 Surendra Nielsen Physician/[facility]-Just for 1:36pm 2:10pm [facility] Registered [facility] Physician December 16, 2018 Hardeep dixon Inpatient Group-Just for 2:22pm MD [facility] Discharged [facility] Physician December 16, 2018 December 19, 2018 Surendra Nielsen Inpatient Group-Obstetric 2:23pm 10:04am Registered [facility] Physician December 17, 2018 Hardeep dixon Inpatient Group- 2:26pm Departed [facility] Physician December 22, 2018 December 22, 2018 [place] [facility]-OB 11:42am 1:51pm Outpatient Service Departed [facility] Physician December 23, 2018 December 23, 2018 [place] Physician/[facility]-Women's 3:07pm 3:52pm [facility] Visit Registered [facility] Physician December 23, 2018 Jameson alicea Clinical Group-Laboratory 3:59pm Departed [facility] Physician December 24, 2018 December 24, 2018 [place] Physician/[facility]-Women's 1:37pm 3:21pm [facility] Visit Registered [facility] Physician December 24, 2018 Jameson alicea Clinical Group-Radiology 3:22pm Registered [facility] Physician December 25, 2018 [place] [facility] 9:31am MD Sandro Osborn Departed [facility] Physician December 26, 2018 December 26, 2018 [facility] 10:43am 12:00pm [facility] Visit Registered [facility] Physician December 27, 2018 Jameson Cl arke , [facility] 4:41pm MD Sandro Osborn Registered [facility] Physician December 27, 2018 Hardeep dixon , Inpatient Group-[facility] for 6:30pm MD Davis Registered [facility] Physician December 29, Jameson Osborn , Inpatient Group- 2018 2:59pm Recent Diagnosis Onset Date Elevated liver enzymes Gestational hypertension [id number] Assessments See care plan goalsSee care plan goals Functional Status Observation Response Date Recorded Ambulation Ability Independent December 19, 2018 1 0:04am Functional status ambulatory December 23, 2018 4 :20pm Functional status ambulatory December 16, 2018 1 [...] 2018 3: 51pm Functional status ambulatory December 26, 2018 1 2:28pm Functional status ambulatory December 25, 2018 1 2:20pm Functional status ambulatory December 04, 2018 3 [...] care provider as instructed in discharge packet Ambulatory Goals Patient verbalizes understanding of dise ase process/healthy behaviors. Patient to follow plan of care. Education provid ed. Immunizations Immunization Event Date Not Given Dose Customer Advocate Lot Vac cine Reason Number Number Informatio n Statement (VIS) Deta il Hepatitis B July 09, Vaccine, 1999 adol/ped dosage Hepatitis B March adol/ped dosage Hepatitis B September 17, Vaccine2000 adol/ped dosage Measles, Mumps, July 09, and Rubella 2000 Virus Vaccine Mental Status Observation Response Date Recorded Able to Read Yes December 22, 2018 1 1:54am Able to Write Yes December 22, 2018 1 1:54am Able to Read Yes December 16, 2018 2 :51pm Able to Write Yes December 16, 2018 2 :51pm Medical Equipment No Medical Equipment Information available Insurance Providers Guarantor Carissa Cruz Address [address] [facility] [id number] Contact Info. Home Phone: Payer Policy Id Coverage Id Subscriber's Subscriber Id Effective E xpiration Name Date Date Madeline [id number] Carissa Chang [id number] Omkarbe bhupendra Pacheco Anthony 2012 Access Self Pay Self N/A Plan of Treatment Follow up as ordered by primary care provider Follow up as ordered by primary care provider Her platelets were slightly low and her liver function tests were slightly elevated yesterday. Today her blood pressures are normal. They were normal yesterday. Her reflexes are flat. She does complain of a mild headache. We will repeat her [facility] blood work again today. I will see her back in the office again tomorrow. If she continues to have abnormal blood work given her history of help syndrome we will go ahead and deliver her. X-rays 3 views right ankle taken 11/13 [...] Application of Unna boot in office today Her nonstress test today was reactive. The baby is active. She does complain of some low back pain. I have called her in a prescription for Tylenol 3 number 20 tablets to take in the evenings if she has any discomfort. She has an appoint with Dr. Nielsen next week. Her blood pressures continue to be normal. She does complain of a mild headache. Her reflexes are flat. She had an ultrasound that had a biophysical profile of 8 out of 8. Normal fluid. We have reassured her. She will follow-up with me in 48 hours. Future Tests Future scheduled test information is unavailable Pending Tests Pending diagnostic test information is unavailable Future Visits Future appointment information is unavailable Referrals to Other Providers Reason for Referral Referral Start Provider Provider Contact Demarco farias Address Date Information Admission to [facility] December 172018 [facility] Call office for Lu Merlos Work Phone: [phone] [place] [phone] Future Procedures Future procedure information is unavailable [...] How to Do Kick Counts Antepartum Care Pre-eclampsia and -induced Hype rtension (Alternative Therapy) How to Do Kick Counts Antepartum Care Diet Diet DI for False Labor Diet Social History Observation Status Date of Observation Patient currently October 15, 2018 Assigned Sex Female Vital Signs Vital Reading Result Reference Range Collection Date/ Time Height 154.94 cm October 07 201 9 2:24pm Weight 97.69 kg October 07 201 9 2:24pm Body Temperature 98.2 [degF] 97.6-99.6 October 07 2:24pm Heart Rate 72 /min 60-October 07 9 2:24pm BP Systolic 130 mm[Hg] 110-140 October 07 9 2:24pm BP Diastolic 74 mm[Hg] 60-90 October 07 9 2:24pm BMI (Body Mass Index) 40.6 kg/m2 September 2:24pm Height 157.48 cm October 07 201 9 4:02pm Weight 95.25 kg October 07 9 4:02pm Body Temperature 97.7 [degF] 97.6-99.6 October 07 4:02pm Heart Rate 89 /min 60-October 07 9 4:02pm Respiratory rate 18 /min -October 07 4:02pm Oxygen saturation by 98 % 95-100 September Pulse oximetry 4:02pm BP Systolic 118 mm[Hg] 110-140 October 07 201 9 4:02pm BP Diastolic 80 mm[Hg] 60-90 October 07 9 4:02pm BMI (Body Mass Index) 38.4 kg/m2 September 4:02pm Height 156.21 cm October 15 9 7:43pm Weight 95.25 kg October 15 9 7:43pm Body Temperature 99 [degF] 97.6-99.6 October 15 8:23pm Heart Rate 100 /min 60-90 October 15 9 8:23pm Respiratory rate 18 /min -October 15 8:23pm Oxygen saturation by 94 % 95-100 September Pulse oximetry 7:43pm BP Systolic 123 mm[Hg] 110-140 October 15 8:23pm BP Diastolic 86 mm[Hg] 60-90 October 15 9 8:23pm BMI (Body Mass Index) 39.0 kg/m2 September 7:43pm Height 157.48 cm October 17 9 8:50am Weight 97.52 kg October 17 9 8:50am Heart Rate 75 /min 60-October 17 9 8:50am BP Systolic 120 mm[Hg] 110-140 October 17 9 8:50am BP Diastolic 50 mm[Hg] 60-90 October 17 9 8:50am BMI (Body Mass Index) 39.3 [...] 08, 2018 3:44pm Respiratory rate 20 /min -November 08, 2018 3:44pm Oxygen saturation by 100 % 95-100 October 202018 Pulse oximetry 3:44pm BP Systolic 121 mm[Hg] 110-140 November 08, 2018 3:44pm BP Diastolic 84 mm[Hg] 60-90 November 08, 2018 3:44pm BMI (Body Mass Index) 41.5 kg/m2 November 08, 2018 3:44pm Height 154.94 cm November 11, 2018 1:37pm Weight 99.33 kg November 11, 2018 1:37pm Heart Rate 92 /min 60-90 November 11, 2018 1:37pm BP Systolic 135 [...] 3:33pm BP Systolic 135 mm[Hg] 110-140 December 01, 3:34pm BP Diastolic 88 mm[Hg] 60-90 December 01, 3:34pm BMI (Body Mass Index) 0.4 kg/m2 December 012018 3:33pm Height 154.94 cm December 04, 3:46pm Weight 102.22 kg December 04, 3:46pm Heart Rate 87 /min -December 04 3:46pm BP Systolic 123 mm[Hg] 110-140 December 04, 3:46pm BP Diastolic 89 mm[Hg] 60-90 December 04, 3:46pm BMI (Body Mass Index) 42.5 kg/m2 December 042018 3:46pm Height 167.64 cm December 08 2:11pm Weight 101.32 kg December 08 2:11pm Heart Rate 99 /min -December 08 2:11pm BP Systolic 142 mm[Hg] 110-140 December 08 2:14pm BP Diastolic 88 mm[Hg] 60-December 08 2:14pm BMI (Body Mass Index) 36.0 kg/m2 December 082018 2:11pm Height 167.64 cm December 11 10:08am Weight 100.86 kg December 11, 10:08am Heart Rate 72 /min -December 11 10:08am BP Systolic 120 mm[Hg] 110-140 December 11 10:08am BP Diastolic 82 mm[Hg] 60-90 December 11 10:08am BMI (Body Mass Index) 35.9 kg/m2 December 112018 10:08am Height 167.64 cm December 16, 1:12pm Weight 100.47 kg December 16, 1:12pm Body Temperature 98.0 [degF] 97.6-99.6 December 16, 2 019 1:12pm Heart Rate 80 /min -December 16, 1:12pm BP Systolic 150 mm[Hg] 110-140 December 16, 1:12pm BP Diastolic 100 mm[Hg] 60-90 December 16 1:12pm BMI (Body Mass Index) 35.7 kg/m2 December 162018 1:12pm Height 167.64 cm December 16 2:53pm Weight 100.24 kg December 16, 2:53pm Body Temperature 97.8 [degF] 97.6-99.6 December 18, 2 019 4:08am Heart Rate 88 /min 60-December 18, 6:09am Respiratory rate 20 /min 02-10December 18, 2 019 4:08am Oxygen saturation by 100 % 95-100 November Pulse oximetry 4:08am BP Systolic 103 mm[Hg] 110-140 December 18, 6:09am BP Diastolic 67 mm[Hg] 60-90 December 18, 6:09am BMI (Body Mass Index) 35.6 kg/m2 December 162018 2:53pm Height 154.94 cm December 22 11:54am Weight 101.15 kg December 22 11:54am Body Temperature 97.9 [degF] 97.6-99.6 December 22, 2 019 11:54am Heart Rate 101 /min -December 22 11:54am Respiratory rate 18 /min -December 22, 2 019 11:54am Oxygen saturation by 98 % 95-100 December Pulse oximetry 11:54am BP Systolic 123 mm[Hg] 110-140 December 22, 1:30pm BP Diastolic 68 mm[Hg] 60-90 December 22, 1:30pm BMI (Body Mass Index) 42.1 kg/m2 December 222018 11:54am Weight 100.92 kg December 23, 3:25pm BP Systolic 138 mm[Hg] 110-140 December 23 3:25pm BP Diastolic 88 mm[Hg] 60-90 December 23 3:25pm Height 154.94 cm December 24 1:49pm Weight 99.79 kg December 24, 1:49pm BP Systolic 130 mm[Hg] 110-140 December 24 1:49pm BP Diastolic 82 mm[Hg] 60-90 December 24 1:49pm BMI (Body Mass Index) 41.5 kg/m2 December 242018 1:49pm Height 154.94 cm December 25 9:57am Weight 100.24 kg December 25 9:57am Body Temperature 97.8 [degF] 97.6-99.6 December 25, 019 9:57am Heart Rate 110 /min -December 25 9:57am Respiratory rate 18 /min -December 25, 2 019 9:57am Oxygen saturation by 98 % 95-100 December Pulse oximetry 9:57am BP Systolic 131 mm[Hg] 110-140 December 25, 9:57am BP Diastolic 91 mm[Hg] 60-90 December 25, 9:57am BMI (Body Mass Index) 41.7 kg/m2 December 252018 9:57am Height 154.94 cm December 26 11:19am Weight 101.32 kg December 26 11:19am BP Systolic 120 mm[Hg] 110-140 December 26 11:19am BP Diastolic 80 mm[Hg] 60-90 December 26 11:19am BMI (Body Mass Index) 42.2 kg/m2 December 262018 11:19am Height 154.94 cm December 27 2:57pm Weight 101.15 kg December 27 2:57pm Body Temperature 98.5 [degF] 97.6-99.6 December 29, 2018 12:50pm Heart Rate 107 /min -December 29, 2 019 12:50pm Respiratory rate 20 /min -December 29, 2018 12:50pm Oxygen saturation by 98 % 95-100 December 292018 Pulse oximetry 12:50pm BP Systolic 113 mm[Hg] 110-140 December 29, 2 019 12:50pm BP Diastolic 74 mm[Hg] 60-90 December 29, 2 019 12:50pm BMI (Body Mass Index) 42.1 kg/m2 December 272018 2:57pm
--- NOTE | 2018-12-30 06:23 | Progress Note ---
Internal Medicine - PN: Subj *Date: 12/30/18 *Time: 06:22 (This is /postop day #2. The patient is afebrile. Her vital signs are stable. Blood pressure 109/59. Hemoglobin 9.3 g. Wound clean. Abdomen soft. Lochia normal. Uterine fundus has involuted well. Impression: Stable.) Exam Vital signs and Labs for Last 24 Hours: Temp Pulse Resp BP Pulse Ox 98.4 F 111 H 18 132/69 99 12/29/18 16:30 12/29/18 16:30 12/29/18 16:30 12/29/18 16:30 12/29/18 16:30 Laboratory Results - last 24 hr 12/27/18 21:40: Blood Type O Positive, Antibody Screen Negative, Crossmatch (AHG) See Detail 12/29/18 06:24: Hgb 7.7 L*, Hct 23.6 L* 12/29/18 13:15: Hgb 9.3 L D, Hct 28.3 L I & O for Last 24 hours: Intake & Output 12/27/18 12/28/18 12/29/18 12/30/18 11:59 11:59 11:59 11:59 Intake Total 900 / 900 52.07 / 52.07 Output Total 450 / 450 400 / 400 Balance 900 / 900 -397.93 / -397.93 -400 / -400 Weight 223 lb Assessment and Plan (1) Previous complicated by -induced hypertension in first trimester, antepartum Current visit: Yes Status: Acute Category: Medical Code(s): O09.891 - Supervision of other high risk pregnancies, first trimester (2) Gestational hypertension Current visit: Yes Status: Acute Category: Medical Code(s): O13.9 - Gestational [-induced] hypertension without significant proteinuria, unspecified trimester (3) Elevated liver enzymes Current visit: Yes Status: Acute Category: Medical Code(s): R74.8 - Abnormal levels of other serum enzymes
[2018-12-30 07:54] LABS: Hematocrit 23.8 % (37.0-47.0); Hemoglobin 7.8 g/dL (12.2-16.2)
[2018-12-30 12:15] LABS: Basophils # 0.1 K/mm3 (0-0.2); Basophils % 0.4 % (0.1-2.0); Eosinophils # 0.2 K/mm3 (0.0-0.4); Eosinophils % 1.9 % (0.1-12.0); Hematocrit 24.9 % (37.0-47.0); Lymphocytes # 2.5 K/mm3 (0.7-4.5); Lymphocytes % 20.7 % (10-50); Mean Corpuscular Volume 90.8 fl (81-99); Mean Platelet Volume 13.4 fl (7.4-10.4); Monocytes # 0.6 K/mm3 (0.1-1.0); Monocytes % 4.8 % (1.7-9.3); Neutrophils # 8.7 K/mm3 (1.8-7.8); Neutrophils % 72.2 % (37.0-80.0); Platelet Count 127 K/mm3 (142-424); Red Blood Count 2.75 M/mm3 (4.20-5.40); Red Cell Distribution Width 14.1 % (11.5-17.5)
--- NOTE | 2018-12-30 13:36 | Progress Note ---
Internal Medicine - PN: Subj *Date: 12/30/18 *Time: 13:35 (The patient's blood count dropped again to 7.8 g after transfusion yesterday had raised it to 9.[address] scan shows a 9 cm collection of blood to the right of midline in the abdominal cavity anterior to the uterus. There is no active extravasation. I have discussed the situation with the patient and I am going to transfuse her 2 more units of packed cells.) Exam Vital signs and Labs for Last 24 Hours: Temp Pulse Resp BP Pulse Ox 98.6 F 91 H 18 121/71 100 12/30/18 12:00 12/30/18 12:00 12/30/18 12:00 12/30/18 12:00 12/30/18 12:00 Laboratory Results - last 24 hr 12/27/18 21:40: Crossmatch (AHG) See Detail 12/29/18 13:15: Hgb 9.3 L D 12/30/18 06:37: Hgb 7.8 L*, Hct 23.8 L* 12/30/18 12:08: WBC 12.0 H, RBC 2.75 L D, Hgb 8.0 L, Hct 24.9 L, MCV 90.8, MCH 29.1, MCHC 32.0, RDW 14.1, Plt Count 127 L, MPV 13.4 H, Neut % (Auto) 72.2, Lymph % (Auto) 20.7, Fisher % (Auto) 4.8, Eos % (Auto) 1.9, Baso % (Auto) 0.4, Neut # (Auto) 8.7 H, Lymph # (Auto) 2.5, Fisher # (Auto) 0.6, Eos # (Auto) 0.2, Baso # (Auto) 0.1 I & O for Last 24 hours: Intake & Output 12/28/18 12/29/18 12/30/18 12/31/18 11:59 11:59 11:59 11:59 Intake Total 900 / 900 52.07 / 52.07 Output Total 450 / 450 400 / 400 Balance 900 / 900 -397.93 / -397.93 -400 / -400 Weight 223 lb Assessment and Plan (1) Previous complicated by -induced hypertension in first trimester, antepartum Current visit: Yes Status: Acute Category: Medical Code(s): O09.891 - Supervision of other high risk pregnancies, first trimester (2) Gestational hypertension Current visit: Yes Status: Acute Category: Medical Code(s): O13.9 - Gestational [-induced] hypertension without significant proteinuria, unspecified trimester (3) Elevated liver enzymes Current visit: Yes Status: Acute Category: Medical Code(s): R74.8 - Abnormal levels of other serum enzymes
[2018-12-30 18:55] LABS: Hematocrit 28.7 % (37.0-47.0)
[2018-12-30 19:00] LABS: Hemoglobin 9.9 g/dL (12.2-16.2)
[2018-12-31 06:34] LABS: Basophils % 0.4 % (0.1-2.0); Eosinophils # 0.4 K/mm3 (0.0-0.4); Eosinophils % 3.9 % (0.1-12.0); Hematocrit 29.5 % (37.0-47.0); Hemoglobin 9.6 g/dL (12.2-16.2); Lymphocytes # 2.5 K/mm3 (0.7-4.5); Lymphocytes % 23.4 % (10-50); Mean Corpuscular HGB Conc 32.3 g/dL (31.8-35.4); Mean Corpuscular Volume 91.1 fl (81-99); Mean Platelet Volume 12.3 fl (7.4-10.4); Monocytes # 0.4 K/mm3 (0.1-1.0); Monocytes % 3.3 % (1.7-9.3); Neutrophils # 7.4 K/mm3 (1.8-7.8); Platelet Count 125 K/mm3 (142-424); Red Blood Count 3.24 M/mm3 (4.20-5.40); Red Cell Distribution Width 14.1 % (11.5-17.5); White Blood Count 10.8 K/mm3 (4.8-10.8)
[2018-12-31 06:45] LABS: Albumin/Globulin Ratio 0.6 (1.1-1.8); Anion Gap 12.8 mEq/L (5-15); Bilirubin,Total 0.4 mg/dL (0.2-1.0); Globulin 3.4 gm/dl (1.3-3.2); Total Protein,Serum 5.4 gm/dL (6.4-8.2)
--- NOTE | 2018-12-31 07:45 | Progress Note ---
Internal Medicine - PN: Subj *Date: 12/31/18 *Time: 07:44 (This is /postop day #3. The patient remains afebrile. Her vital signs are stable. Blood pressures in the 110s over 60s. DTRs normal. Liver functions and platelets normal. After 2 more units of packed cells yesterday, her hemoglobin was 9.9 g last night. This morning it is 9.6 g. She still has tenderness on the right lower quadrant, but seems stable. The plan is to observe with serial H&H's tonight and tomorrow morning and continue conservat diann treatment.) Exam Vital signs and Labs for Last 24 Hours: Temp Pulse Resp BP Pulse Ox 98.2 F 85 18 131/61 100 12/31/18 00:00 12/31/18 00:00 12/31/18 00:00 12/31/18 00:00 12/31/18 00:00 Laboratory Results - last 24 hr 12/27/18 21:40: Blood Type O Positive, Antibody Screen Negative, Crossmatch (AHG) See Detail 12/30/18 06:37: Hgb 7.8 L*, Hct 23.8 L* 12/30/18 12:08: WBC 12.0 H, RBC 2.75 L D, Hgb 8.0 L, Hct 24.9 L, MCV 90.8, MCH 29.1, MCHC 32.0, RDW 14.1, Plt Count 127 L, MPV 13.4 H, Neut % (Auto) 72.2, Lymph % (Auto) 20.7, [place] % (Auto) 4.8, Eos % (Auto) 1.9, Baso % (Auto) 0.4, Neut # (Auto) 8.7 H, Lymph # (Auto) 2.5, [place] # (Auto) 0.6, Eos # (Auto) 0.2, Baso # (Auto) 0.1 12/30/18 18:40: Hgb 9.9 L D, Hct 28.7 L 12/31/18 06:13: WBC 10.8, RBC 3.24 L, Hgb 9.6 L, Hct 29.5 L, MCV 91.1, MCH 29.5, MCHC 32.3, RDW 14.1, Plt Count 125 L, MPV 12.3 H, Neut % (Auto) 69.0, Lymph % (Auto) 23.4, [place] % (Auto) 3.3, Eos % (Auto) 3.9, Baso % (Auto) 0.4, Neut # (Auto) 7.4, Lymph # (Auto) 2.5, [place] # (Auto) 0.4, Eos # (Auto) 0.4, Baso # (Auto) 0.0 12/31/18 06:13: Sodium 141, Potassium 3.8, Chloride 108 H, Carbon Dioxide 24, Anion Gap 12.8, BUN 11, Creatinine 0.59, Estimated Creat Clear 106, Estimated GFR 121, Est GFR ( Amer) 146, Glucose 71 L, Calcium 8.0 L, Total Bilirubin 0.4, AST 36, ALT 62, Alkaline Phosphatase 121 H, Total Protein 5.4 L, Albumin 2.0 L, Globulin 3.4 H, Albumin/Globulin Ratio 0.6 L I & O for Last 24 hours: Intake & Output 12/28/18 12/29/18 12/30/18 12/31/18 11:59 11:59 11:59 11:59 Intake Total 900 / 900 52.07 / 52.07 500 / 500 Output Total 450 / 450 400 / 400 Balance 900 / 900 -397.93 / -397.93 -400 / -400 500 / 500 Weight 223 lb Assessment and Plan (1) Previous complicated by -induced hypertension in first trimester, antepartum Current visit: Yes Status: Acute Category: Medical Code(s): O09.891 - Supervision of other high risk pregnancies, first trimester (2) Gestational hypertension Current visit: Yes Status: Acute Category: Medical Code(s): O13.9 - Gestational [-induced] hypertension without significant proteinuria, unspecified trimester (3) Elevated liver enzymes Current visit: Yes Status: Acute Category: Medical Code(s): R74.8 - Abnormal levels of other serum enzymes
[2018-12-31 18:15] LABS: Basophils % 0.2 % (0.1-2.0); Eosinophils # 0.5 K/mm3 (0.0-0.4); Eosinophils % 3.9 % (0.1-12.0); Hemoglobin 10.3 g/dL (12.2-16.2); Lymphocytes % 24.8 % (10-50); Mean Corpuscular HGB Conc 34.1 g/dL (31.8-35.4); Mean Corpuscular Volume 86.7 fl (81-99); Mean Platelet Volume 12.7 fl (7.4-10.4); Monocytes # 0.4 K/mm3 (0.1-1.0); Monocytes % 3.3 % (1.7-9.3); Neutrophils # 8.2 K/mm3 (1.8-7.8); Neutrophils % 67.8 % (37.0-80.0); Platelet Count 148 K/mm3 (142-424); Red Blood Count 3.47 M/mm3 (4.20-5.40); White Blood Count 12.1 K/mm3 (4.8-10.8)
[2018-12-31 18:31] LABS: Albumin Level 2.2 gm/dL (3.4-5.0); Albumin/Globulin Ratio 0.6 (1.1-1.8); Anion Gap 12.8 mEq/L (5-15); Bilirubin,Total 0.4 mg/dL (0.2-1.0); Calcium 8.2 mg/dL (8.5-10.1); Total Protein,Serum 6.2 gm/dL (6.4-8.2)
[2019-01-01 06:40] LABS: Basophils # 0.1 K/mm3 (0-0.2); Basophils % 0.6 % (0.1-2.0); Eosinophils # 0.4 K/mm3 (0.0-0.4); Eosinophils % 4.4 % (0.1-12.0); Hematocrit 28.1 % (37.0-47.0); Hemoglobin 9.3 g/dL (12.2-16.2); Lymphocytes # 2.4 K/mm3 (0.7-4.5); Lymphocytes % 26.1 % (10-50); Mean Corpuscular HGB Conc 33.2 g/dL (31.8-35.4); Mean Corpuscular Volume 90.3 fl (81-99); Mean Platelet Volume 12.3 fl (7.4-10.4); Monocytes # 0.3 K/mm3 (0.1-1.0); Monocytes % 3.3 % (1.7-9.3); Neutrophils % 65.5 % (37.0-80.0); Platelet Count 154 K/mm3 (142-424); Red Blood Count 3.11 M/mm3 (4.20-5.40); White Blood Count 9.1 K/mm3 (4.8-10.8)
[2019-01-01 07:14] LABS: Albumin/Globulin Ratio 0.5 (1.1-1.8); Anion Gap 10.5 mEq/L (5-15); Bilirubin,Total 0.5 mg/dL (0.2-1.0); Calcium 7.7 mg/dL (8.5-10.1); Globulin 3.8 gm/dl (1.3-3.2); Total Protein,Serum 5.8 gm/dL (6.4-8.2)
--- NOTE | 2019-01-01 07:20 | Progress Note ---
Internal Medicine - PN: Subj *Date: 01/01/19 *Time: 07:18 (At 6 PM last night the patient's hemoglobin had risen to 10.3 g. However, this morning it has again dipped to 9.3 g. Her abdomen seems slightly softer in the right lower quadrant. Her wound is clean. Her abdomen is soft. Her uterine fundus is involuting well. I am going to repeat the CT scan this morning to see if the hematoma is expanding. Yesterday morning she developed what appeared to be a herpetic (cold sore) lesion near her lip. She is been treated with acyclovir cream, but this morning it has expanded. I am going to ask her primary care physician to assess that.) Exam Vital signs and Labs for Last 24 Hours: Temp Pulse Resp BP Pulse Ox 98.4 F 63 16 111/75 99 01/01/19 04:00 01/01/19 04:00 01/01/19 04:00 01/01/19 04:00 01/01/19 04:00 Laboratory Results - last 24 hr 12/31/18 18:00: WBC 12.1 H, RBC 3.47 L, Hgb 10.3 L, Hct 30.0 L, MCV 86.7, MCH 29.6, MCHC 34.1, RDW 14.0, Plt Count 148, MPV 12.7 H, Neut % (Auto) 67.8, Lymph % (Auto) 24.8, [place] % (Auto) 3.3, Eos % (Auto) 3.9, Baso % (Auto) 0.2, Neut # (Auto) 8.2 H, Lymph # (Auto) 3.0, [place] # (Auto) 0.4, Eos # (Auto) 0.5 H, Baso # (Auto) 0.0 12/31/18 18:00: Sodium 140, Potassium 3.8, Chloride 107, Carbon Dioxide 24, A nion Gap 12.8, BUN 11, Creatinine 0.58, Estimated Creat Clear 108, Estimated GFR 123, Est GFR ( Amer) 149, Glucose 81, Calcium 8.2 L, Total Bilirubin 0.4, AST 41 H, ALT 66, Alkaline Phosphatase 144 H, Total Protein 6.2 L, Albumin 2.2 L , Globulin 4.0 H, Albumin/Globulin Ratio 0.6 L 01/01/19 06:18: WBC 9.1, RBC 3.11 L, Hgb 9.3 L, Hct 28.1 L, MCV 90.3, MCH 29.9, MCHC 33.2, RDW 14.0, Plt Count 154, MPV 12.3 H, Neut % (Auto) 65.5, Lymph % (Auto) 26.1, [place] % (Auto) 3.3, Eos % (Auto) 4.4, Baso % (Auto) 0.6, Neut # (Aut o) 6.0, Lymph # (Auto) 2.4, [place] # (Auto) 0.3, Eos # (Auto) 0.4, Baso # (Auto) 0.1 I & O for Last 24 hours: Intake & Output 12/29/18 12/30/18 12/31/18 01/01/19 11:59 11:59 11:59 11:59 Intake Total 52.07 / 52.07 500 / 500 Output Total 450 / 450 400 / 400 Balance -397.93 / -397.93 -400 / -400 500 / 500 Assessment and Plan (1) Previous complicated by -induced hypertension in first trimester, antepartum Current visit: Yes Status: Acute Category: Medical Code(s): O09.891 - Supervision of other high risk pregnancies, first trimester (2) Gestational hypertension Current visit: Yes Status: Acute Category: Medical Code(s): O13.9 - Gestational [-induced] hypertension without significant proteinuria, unspecified trimester (3) Elevated liver enzymes Current visit: Yes Status: Acute Category: Medical Code(s): R74.8 - Abnormal levels of other serum enzymes
--- NOTE | 2019-01-01 09:46 | Progress Note ---
Internal Medicine - PN: Subj *Date: 01/01/19 *Time: 09:39 Interval history: FAMILY MEDICINE CONSULT S: Carissa Cruz is a 28-year-old white female 5 now para 3 AB 2 who underwent section at 36+ weeks gestation due to -induced hypertension and HELLP syndrome. This was a repeat section. She was admitted on 12/27 and underwent repeat transverse section with lysis of apparently extensive adhesions. She had an estimated blood loss of 1000 ml. A healthy female was delivered. On the evening of December 28 her blood pressure was running low at 96/56 and her heart rate had elevated to 112. Hemoglobin was only 10.1 at that point. Subsequent hemoglobin that day showed 8.7. She was not on mag sulfate. She was afebrile. On December 29 her morning hemoglobin showed 7.7 and she was transfused 2 units of packed red blood cells to reach hemoglobin 9.3. The following day her hemoglobin dipped to 7.8 and she received an additional 2 units of packed red blood cells. Today on January 01 her hemoglobin is 9.3. CT is pending reg arding a collection of fluid that was seen to the right of the uterus. Her white count is only 9100. This consult was requested due to lip lesions which began to appear yesterday. She does have a history of fever blisters. The lesions have expanded to both upper and lower lip areas today. Exam Vital signs and Labs for Last 24 Hours: Temp Pulse Resp BP Pulse Ox 98.4 F 63 16 111/75 99 01/01/19 04:00 01/01/19 04:00 01/01/19 04:00 01/01/19 04:00 01/01/19 04:00 Laboratory Results - last 24 hr 12/31/18 18:00: WBC 12.1 H, RBC 3.47 L, Hgb 10.3 L, Hct 30.0 L, MCV 86.7, MCH 29.6, MCHC 34.1, RDW 14.0, Plt Count 148, MPV 12.7 H, Neut % (Auto) 67.8, Lymph % (Auto) 24.8, [place] % (Auto) 3.3, Eos % (Auto) 3.9, Baso % (Auto) 0.2, Neut # (Auto) 8.2 H, Lymph # (Auto) 3.0, [place] # (Auto) 0.4, Eos # (Auto) 0.5 H, Baso # (Auto) 0.0 12/31/18 18:00: Sodium 140, Potassium 3.8, Chloride 107, Carbon Dioxide 24, Anion Gap 12.8, BUN 11, Creatinine 0.58, Estimated Creat Clear 108, Estimated GFR 123, Est GFR ( Amer) 149, Glucose 81, Calcium 8.2 L, Total Bilirubin 0.4, AST 41 H, ALT 66, Alkaline Phosphatase 144 H, Total Protein 6.2 L, Albumin 2.2 L, Globulin 4.0 H, Albumin/Globulin Ratio 0.6 L 01/01/19 06:18: WBC 9.1, RBC 3.11 L, Hgb 9.3 L, Hct 28.1 L, MCV 90.3, MCH 29.9, MCHC 33.2, RDW 14.0, Plt Count 154, MPV 12.3 H, Neut % (Auto) 65.5, Lymph % (Auto) 26.1, [place] % (Auto) 3.3, Eos % (Auto) 4.4, Baso % (Auto) 0.6, Neut # (Auto) 6.0, Lymph # (Auto) 2.4, [place] # (Auto) 0.3, Eos # (Auto) 0.4, Baso # (Auto) 0.1 01/01/19 06:18: Sodium 141, Potassium 3.5, Chloride 108 H, Carbon Dioxide 26, Anion Gap 10.5, BUN 10, Creatinine 0.59, Estimated Creat Clear 106, Estimated GFR 121, Est GFR ( Amer) 146, Glucose 78, Calcium 7.7 L, Total Bilirubin 0.5, AST 36, ALT 58, Alkaline Phosphatase 134 H, Total Protein 5.8 L, Albumin 2.0 L, Globulin 3.8 H, Albumin/Globulin Ratio 0.5 L Laboratory Tests 12/30/18 12/31/18 01/01/19 06:37 18:00 06:18 WBC 12.1 H 9.1 Hgb 7.8 L* 10.3 L 9.3 L Hct 23.8 L* 30.0 L 28.1 L Sodium Potassium Chloride BUN Creatinine 01/01/19 06:18 WBC Hgb Hct Sodium 141 Potassium 3.5 Chloride 108 H BUN 10 Creatinine 0.59 I & O for Last 24 hours: Intake & Output 12/29/18 12/30/18 12/31/18 01/01/19 11:59 11:59 11:59 11:59 Intake Total 52.07 / 52.07 500 / 500 Output Total 450 / 450 400 / 400 Balance -397.93 / -397.93 -400 / -400 500 / 500 - Constitutional no acute distress - *Routine HEENT Exam Head: Present: normocephalic Eye: Present: PERRL. Absent: scleral injection ENT: Present: mucous membranes moist Comments: She has extensive vesicular lesions filled with exudate of both the upper lip and the lower lip. They are most prevalent toward the angles of the mouth. He has no lesions of the oral mucosa. She has minimal lymphadenopathy. - *Routine Neck Exam Present: lymphadenopathy (Normal) - Routine Chest/Breast/Axilla Exam Chest wall: Absent: tenderness Axillae: Absent: lymphadenopathy - *Routine Respiratory Exam Present: CTA bilaterally - *Routine Cardiovascular Exam Present: RRR - *Routine Abdominal Exam Present: soft, tenderness (Related to surgery.) - *Routine Extremities Exam Present: edema (1-2+) - *Routine Skin Exam Present: intact (No other skin lesions are noted.) - *Routine Neurological Exam Present: alert, oriented X3 Assessment and Plan (1) Previous complicated by -induced hypertension in first trimester, antepartum Current visit: Yes Status: Acute Category: Medical Code(s): O09.891 - Supervision of other high risk pregnancies, first trimester (2) Gestational hypertension Current visit: Yes Status: Acute Category: Medical Code(s): O13.9 - Gestational [-induced] hypertension without significant proteinuria, unspecified trimester (3) Elevated liver enzymes Current visit: Yes Status: Acute Category: Medical Code(s): R74.8 - Abnormal levels of other serum enzymes (4) Herpes simplex labialis Current visit: Yes Status: Acute Category: Medical Code(s): B00.1 - Herpesviral vesicular dermatitis - Assessment and plan all Dx Assessment and Plan for all problems:: Valacyclovir 500 mg 3 times daily for 5 days. The patient is breast-feeding. We discussed hygiene with respect to the baby. The infant will be scheduled for follow-up in [facility] office. We will have a chance to reevaluate the mother at that time. Thank you for this consult.
[2019-01-01 16:13] LABS: Hematocrit 29.5 % (37.0-47.0); Hemoglobin 10.1 g/dL (12.2-16.2)
--- NOTE | 2019-01-02 07:08 | Progress Note ---
Internal Medicine - PN: Subj *Date: 01/02/19 *Time: 07:07 (This is hospital day #7 and postop day #5. The patient is afeb rile. Her vital signs are stable. Her wound is clean. Her abdomen is soft, but tender in the right lower quadrant and there is some evident bruising there. Uterine fundus has involuted well. Lochia normal. Her herpetic lesions on her face are crusting over and healing. Hemoglobin 10.1 g and stable. Impression: Ready for discharge.) Exam Vital signs and Labs for Last 24 Hours: Temp Pulse Resp BP Pulse Ox 98.6 F 66 18 124/73 98 01/01/19 20:59 01/01/19 20:59 01/01/19 20:59 01/01/19 20:59 01/01/19 20:59 Laboratory Results - last 24 hr 01/01/19 06:18: Sodium 141, Potassium 3.5, Chloride 108 H, Carbon Dioxide 26, Anion Gap 10.5, BUN 10, Creatinine 0.59, Estimated Creat Clear 106, Estimated GFR 121, Est GFR ( Amer) 146, Glucose 78, Calcium 7.7 L, Total Bilirubin 0.5, AST 36, ALT 58, Alkaline Phosphatase 134 H, Total Protein 5.8 L, Albumin 2.0 L, Globulin 3.8 H, Albumin/Globulin Ratio 0.5 L 01/01/19 16:00: Hgb 10.1 L, Hct 29.5 L I & O for Last 24 hours: Intake & Output 12/30/18 12/31/18 01/01/19 01/02/19 11:59 11:59 11:59 11:59 Intake Total 500 / 500 Output Total 400 / 400 Balance -400 / -400 500 / 500 Assessment and Plan (1) Previous complicated by -induced hypertension in first trimester, antepartum Current visit: Yes Status: Acute Category: Medical Code(s): O09.891 - Supervision of other high risk pregnancies, first trimester (2) Gestational hypertension Current visit: Yes Status: Acute Category: Medical Code(s): O13.9 - Gestational [-induced] hypertension without significant proteinuria, unspecified trimester (3) Elevated liver enzymes Current visit: Yes Status: Acute Category: Medical Code(s): R74.8 - Abnormal levels of other serum enzymes (4) Herpes simplex labialis Current visit: Yes Status: Acute Category: Medical Code(s): B00.1 - Herpesviral vesicular dermatitis
--- NOTE | 2019-01-02 07:15 | Discharge Summary ---
General - General Admission date:: 12/27/18 Discharge date: 01/02/19 (This 28-year-old 5, now para 3, Ab0 white female was admitted at 36-6/7 weeks with signs and symptoms of preeclampsia. She was treated with intravenous magnesium sulfate. She had had 2 previous sections and had been scheduled for a repeat section at a later date. Her symptoms initially abated but then worsened and she was subsequently taken to the operating room, where she underwent a repeat low transverse cervical section by Dr. Jameson Lopez. The surgery was complicated by extensive adhesions and continuous oozing. The baby was an 9/9, 5 pound 12 ounce, 17.5 inch female infant, who is bottlefeeding and has done well. The estimated blood loss at was 1000 cc. Patient's hemoglobin subsequently dropped considerably and she was transfused on 2 occasions (a total of 4 units of packed cells), after which her hemoglobin is now 10.1 g, and stable. She is clinically stable and is been started on oral iron. She developed a 9 cm hematoma (confirmed on [address] scans) anterior to the uterus in the right lower quadrant. She is tender there, but there is no active bleeding. After her second transfusion she felt herpetic lesions on her face, which have been treated with acyclovir and are now crusting over. This is thought to be a transfusion reaction. Otherwise, she has done well. She is eating and ambulating, and has had a bowel movement. Her wound is clean. Her abdomen is soft other than as mentioned. Her lochia is normal. Her uterine fundus has involuted well. Half of her harry will be removed today and Steri-Strips placed. She is discharged home on the seventh hospital and fifth /postoperative day on iron 3 times a day and vitamins once a day, and on Tylenol and Motrin, as needed for pain. She is given appropriate instructions as to diet, exercise, and wound care, and she is to return the office in 4 days for staple removal and follow-up. Her blood type is O+. Her rubella titer is nonimmune, and she will be vaccinated prior to discharge.) Hospital Course Rhogam Administration: Not Indicated Objective Vital signs: Temp Pulse Resp BP Pulse Ox 98.6 F 66 18 124/73 98 01/01/19 20:59 01/01/19 20:59 01/01/19 20:59 01/01/19 20:59 01/01/19 20:59 Results Labs on day of discharge: Labs from last 24 hours 01/01/19 01/01/19 16:00 06:18 Hgb 10.1 L Hct 29.5 L Sodium 141 Potassium 3.5 Chloride 108 H Carbon Dioxide 26 Anion Gap 10.5 BUN 10 Creatinine 0.59 Estimated Creat Clear 106 Estimated GFR 121 Est GFR ( Amer) 146 Glucose 78 Calcium 7.7 L Total Bilirubin 0.5 AST 36 ALT 58 Alkaline Phosphatase 134 H Total Protein 5.8 L Albumin 2.0 L Globulin 3.8 H Albumin/Globulin Ratio 0.5 L DS: Diagnosis - Discharge Diagnosis (1) Previous complicated by -induced hypertension in first trimester, antepartum Status: Acute (2) Gestational hypertension Status: Acute (3) Elevated liver enzymes Status: Acute (4) Herpes simplex labialis Status: Acute Discharge Plan - Patient Discharge Instructions ACTIVITY: Limited activity DIET: continue same diet, advance to your usual diet Additional Instructions: FOLLOW-UP WITH DR. TORRES ON 01/13/2019 AT 10:15 NO STRENUOUS ACTIVITY, NO HEAVY LIFTING AND NOTHING IN THE VAGINA FOR 6 WEEKS Patient Instructions: How to Care for a Surgical Wound, Depression, Hemorrhage, [facility] Post Discharge Instructions - Follow up Plan Follow up with: Hardeep Torres MD [Staff Physician] - Disposition: Home, Self-Fci Medications: Home Medications Medication Instructions Recorded Confirmed Type acetaminophen 300 mg-codeine 30 mg 1 tab PO Q8H PRN #20 tab 12/26/18 12/27/18 Rx tablet Prescriptions/Medication Reconciliation: Discontinued acetaminophen 300 mg-codeine 30 mg tablet 1 tab PO Q8H PRN #20 tab PRN Reason: pain - Problem Reconciliation Problems Reviewed?: Yes
[2019-01-02 10:50] VITALS: BP 134/72
== END 2019-01-02 13:00 | disposition home or self-care (01) | DRG 786 ==
LOC: OBOUT 14:53 → OB 14:53
PROVIDERS: ADMIT Nurse Practitioner Obstetrics & Gynecology; ATTEND Obstetrics & Gynecology
CPT/HCPCS: 36415; 59025; 74177; 80048; 80053; 80305; 81001; 82800; 83615; 84450; 84460; 84550; 85014; 85018; 85025; 85378; 85384; 85610; 85730; 86078; 86850; 90707; 94761; J2405; P9016; Q9967

== ENCOUNTER → 2019-02-24 15:47 | Outpatient (POV) | payer BC, SELFPAY | PROVIDERS: Visit Provider Dermatology | DX: Z00.00 Encounter for general adult medical examination without abnormal findings (principal) ==

== ENCOUNTER 2019-12-29 14:40 | Emergency (ER) | payer BC, SELFPAY ==
[2019-12-29 15:37] VITALS: BP 134/95; PULSE 94; RESP 18; TEMP 37.8; O2SAT 100; BMI 22.6
--- NOTE | 2019-12-29 15:48 | HMH.EDUTC ---
[facility] Disposition Clinical Impression: Viral upper respiratory illness Disposition: Home, Self-Care Condition on Discharge: Good Instructions: Sore Throat, DI for Headache, DI for Viral Upper Respiratory Infection -- Adult, Common Cold Additional Instructions: *Monitor Temp, Over the counter Motrin or Tylenol as directed/as needed Tylenol every 4 hours and Motrin every 6 hours (as long as your family doctor has told you that you can take it) for fever or pain. and straight to ER if unable to lower temp less than 101.0 after medication given *Warm salt water gargles may help to soothe the throat *Throat Lozenges *Warm fluids like tea with honey may help to soothe the throat *Sleep elevated *Humidifier/Vaporizer *Flonase 2 sprays in each nostril daily but be aware that it may take 2-3 days before you notice improvement *Bromfed may cause drowsiness. Know how it effects you (your child) before driving, caring for small child, or sending your child to school. Not other antihistamines/allergy medications while taking bromfed Follow up IMMEDIATELY for new or worsening symptoms or no Noticeable improvement over the next 48-72 hours. 911 for difficulty breathing or swallowing You was tested for today for COVID19 your test result should be back in the next 24-48 hours, you may call to the [facility] tomorrow to see if your test results are back and the result [phone] You was given a handout with instructions for Self Quarantine and Self isolation for while you wait on test results and what to do if they are positive If you are positive the Health Dept will be contacting you also Prescriptions: Brompheniramine/Pseudoephed/Dm [Bromfed Dm Cough Syrup] 5 - 10 ml PO Q46H #200 ml Transmission Status: [facility] Fluticasone Propionate [Flonase 50mcg nasal spray 16gm] 1 spr NS DAILY #1 bottle Transmission Status: Pending to [facility] Referrals: Tk Lilly MD [Primary Care Provider] - As needed Forms: Work/School Release Medical Decision Making - Andrae Inquiry Pt receiving controlled substance: No Andrae was queried for this patient: No Vital Signs: 12/29/19 15:37 Temperature 100.1 F H Temperature Source Oral Pulse Rate [Left] 94 H Respiratory Rate 18 Blood Pressure [Right Arm] 134/95 H Blood Pressure Mean [Right Arm] 108 Blood Pressure Source [Right Arm] Manual Cuff/ Doppler Blood Pressure Position [Right Arm] Sitting 02 Sat by Pulse Oximetry 100 Oxygen Delivery Method Room Air Orders (Tests/Meds): ORDERS Category Date Time Status Covid-19 Nasal PCR Sendout Loc Stat Lab 12/29/19 15:02 Ordered [facility] HPI - General Stated complaint: headache,cough,scratchy throat Time Seen by Provider: 12/29/19 15:48 Mode of Arrival: Ambulatory Source of Information: Patient Limitations: No Limitations Description of Symptoms (Recalled from Triage Doc. by RN): Headach, dry cough, sore throat, chills, body ahes x3days. Wants Covid testing HEENT Symptoms (Recalled from RN notes): Yes Resp Symptoms (Recalled from RN notes): Yes Skin Symptoms (Recalled from RN notes): No MS Symptoms (Recalled from RN notes): No Functional Status (Recalled from RN notes): stable - History of Present Illness Provider Complaint: Patient states that she has been having body aches, chills, headache, scratchy throat and cough States that she is unsure if she has been exposed to COVID or not but wanted to come in and get tested - Related Data Previous Rx's Medication Instructions Recorded Brompheniramine/Pseudoephed/Dm 5 - 10 ml PO Q46H #200 ml 12/29/19 [Bromfed Dm Cough Syrup] Fluticasone Propionate [Flonase 1 spr NS DAILY #1 bottle 12/29/19 50mcg nasal spray 16gm] Allergies Allergy/AdvReac Type Severity Reaction Status Date / Time No Known Allergies Allergy Verified 12/29/19 15:40 - Worker's Comp Is this a Worker's Comp case?: No Is this an [facility] Worker's Comp?: No Is this a [facility]
[2019-12-29 15:55] VITALS: BP 134/95; PULSE 94; RESP 18; TEMP 37.8; O2SAT 100
[2019-12-31 17:03] LABS: Covid-19 Nasal PCR Sendout Lex Positive
== END 2019-12-29 15:56 | disposition home or self-care (01) ==
PROVIDERS: Emergency Provider Nurse Practitioner; PCP Family Medicine
DX: U07.1 COVID-19 (principal); K21.9 Gastro-esophageal reflux disease without esophagitis
CPT/HCPCS: 99201; U0004

== ENCOUNTER 2020-10-03 16:18 | Emergency (ER) | payer BC, SELFPAY ==
[2020-10-03 18:00] VITALS: BP 131/77; PULSE 78; RESP 19; TEMP 36.7; O2SAT 100; BMI 34.0
--- NOTE | 2020-10-03 18:29 | HMH.EDUTC ---
[facility] [place] Clinical Impression: Encounter for laboratory testing for COVID-19 virus Disposition: Home, Self-Care Condition on Discharge: Good Instructions: DI for COVID-19 (Suspected or Confirmed ), Coronavirus Disease 2019, Preventing the Spread of Coronavirus Discharge Instructions Additional Instructions: *Monitor Temp, Over the counter Motrin or Tylenol as directed/as needed Tylenol every 4 hours and Motrin every 6 hours (as long as your family doctor has told you that you can take it) for fever or pain. and straight to ER if unable to lower temp less than 101.0 after medication given *Warm fluids like tea with honey may help to soothe the throat *Sleep elevated *Humidifier/Vaporizer *Flonase 2 sprays in each nostril daily but be aware that it may take 2-3 days before you notice improvement Follow up IMMEDIATELY for new or worsening symptoms or no Noticeable improvement over the next 48-72 hours. 911 for difficulty breathing or swallowing You were tested for today for COVID19 your test result should be back in the next 24-48 hours, you may call to the [facility] to see if your test results are back in the next 48 hours [phone] [facility] hours are 9am-9pm You was given a handout with instructions for Self Quarantine and Self isolation for while you wait on test results and what to do if they are positive If you are positive the Health Dept will be contacting you also Make sure to take your Vitamins Vit. C Vit D and Zinc if you can take them Referrals: Livan Tran MD [Primary Care Provider] - As needed Forms: Work/School Release Time of Disposition: 18:31 Medical Decision Making - Andrae Inquiry Pt receiving controlled substance: No Andrae was queried for this patient: No Vital Signs: 10/03/20 18:00 Temperature 98.1 F Temperature Source Oral Pulse Rate [Right Brachial] 78 Respiratory Rate 19 Blood Pressure [Right Arm] 131/77 Blood Pressure Mean [Right Arm] 95 Blood Pressure Source [Right Arm] Automatic Cuff Blood Pressure Position [Right Arm] Sitting 02 Sat by Pulse Oximetry 100 Oxygen Delivery Method Room Air Orders (Tests/Meds): ORDERS Category Date Time Status Covid-19 Nasal PCR ([facility]) Routine Lab 10/03/20 18:16 Ordered [facility] HPI - General Stated complaint: Covid testes with symptoms Time Seen by Provider: 10/03/20 18:29 Mode of Arrival: Ambulatory Source of Information: Patient Limitations: No Limitations Description of Symptoms (Recalled from Triage Doc. by RN): PATIENT C/O LOSS OF TASTE AND SMELL, RUNNY NOSE, AND HEADACHE X 2 DAYS HEENT Symptoms (Recalled from RN notes): Yes Resp Symptoms (Recalled from RN notes): No Skin Symptoms (Recalled from RN notes): No MS Symptoms (Recalled from RN notes): No Functional Status (Recalled from RN notes): WNL - History of Present Illness Provider Complaint: Patient states that she has had runny nose and headache States that this morning she noticed she wasnt able to smell or taste anything so this evening she still couldnt so she came in to get checked and tested for COVID - Related Data Previous Rx's Medication Instructions Recorded Brompheniramine/Pseudoephed/Dm 5 - 10 ml PO Q46H #200 ml 12/29/19 [Bromfed Dm Cough Syrup] Fluticasone Propionate [Flonase 1 spr NS DAILY #1 bottle 12/29/19 50mcg nasal spray 16gm] Allergies Allergy/AdvReac Type Severity Reaction Status Date / Time No Known Allergies Allergy Verified 12/29/19 15:40 - Worker's Comp Is this a Worker's Comp case?: No [facility] History - Hepatitis A Screen Drug use history?: No High risk sexual behaviors?: No History of sexually transmitted infection?: No Currently employed?: No Childcare worker?: No Do you have indoor plumbing?: Yes Do you have electricity?: Yes Attestation statement:: This patient has been screened for Hepatitis A risk factors. I have reviewed the patient's past medical history: Yes Medical History: Reports:: Gastroesophageal Reflux Dis
[2020-10-03 18:34] VITALS: BP 131/77; PULSE 78; RESP 19; TEMP 36.7; O2SAT 100
== END 2020-10-03 18:37 | disposition home or self-care (01) ==
PROVIDERS: Emergency Provider Nurse Practitioner; PCP Family Medicine
DX: Z20.822 Contact with and (suspected) exposure to COVID-19 (principal); R43.9 Unspecified disturbances of smell and taste; R51.9 Headache, unspecified; K21.9 Gastro-esophageal reflux disease without esophagitis
CPT/HCPCS: 99202; G0463; U0003

== ENCOUNTER → 2021-03-23 08:38 | Outpatient (CLI) | payer BC, SELFPAY | PROVIDERS: Visit Provider Nurse Practitioner | DX: Z20.822 Contact with and (suspected) exposure to COVID-19 (principal) | CPT/HCPCS: C9803; U0003; U0005 ==

== ENCOUNTER → 2021-09-08 10:03 | Outpatient (CLI) | payer BC, SELFPAY ==
[2021-09-08 11:18] LABS: Triiodothryronine (T3) Uptake 38 % (23.5-40.5)
[2021-09-08 11:32] LABS: Thyroid Stimulating Hormone 1.99 uIU/mL (0.465-4.68)
[2021-09-08 12:12] LABS: Free Thyroxine Index 3.4 ug/dL (5.93-13.13); T4 (Thyroxine) 8.9 ug/dl (5.53-11.0)
== END ==
PROVIDERS: PCP Family Medicine; Visit Provider Obstetrics & Gynecology
DX: N93.8 Other specified abnormal uterine and vaginal bleeding (principal)
CPT/HCPCS: 36415; 84436; 84443; 84479

== ENCOUNTER → 2021-09-13 15:08 | Outpatient (CLI) | payer BC, SELFPAY ==
--- NOTE | 2021-09-13 15:11 | US_ITS ---
FINAL REPORT TECHNIQUE: Sonographic images of the pelvis were obtained transvaginally. CLINICAL HISTORY: abnormal uterine bleeding FINDINGS: The uterus is anteverted and retroflexed.. It measures 8.1 x 2.5 x 3.0 cm. The endometrial stripe measures 6 mm and is normal for the patient's age. The myometrium is homogeneous. There is a small amount of fluid in the cervix which can be normal in a patient of this age. The right ovary measures 2.2 x 2.3 x 1.7 cm. There is a 2.2 cm simple cyst. The left ovary measures 3.2 x 1.6 x 1.9 cm. It is normal in appearance. Color imaging to the ovaries is within normal limits. There is no free fluid. IMPRESSION: Normal endometrial stripe for age. Simple right ovarian cyst, not an unexpected finding in a patient of this age. Given size no follow-up needed. Reviewed, Interpreted and Dictated by Lenore Call MD Transcribed by Charlene Petty Authenticated and [facility]
== END ==
LOC: RAD 15:09
PROVIDERS: PCP Family Medicine; Visit Provider Obstetrics & Gynecology
DX: N93.9 Abnormal uterine and vaginal bleeding, unspecified (principal)
CPT/HCPCS: 76830

== ENCOUNTER → 2021-10-17 15:32 | Outpatient (CLI) | payer BC, SELFPAY ==
[2021-10-17 16:32] LABS: Basophils # 0.2 K/mm3 (0-0.2); Basophils % 1.4 % (0.1-2.0); Eosinophils # 0.4 K/mm3 (0.0-0.4); Eosinophils % 3.3 % (0.1-12.0); Hematocrit 40.2 % (37.0-47.0); Hemoglobin 13.1 g/dL (12.2-16.2); Lymphocytes # 4.2 K/mm3 (0.7-4.5); Lymphocytes % 34.7 % (10-50); Mean Corpuscular HGB Conc 32.6 g/dL (31.8-35.4); Mean Corpuscular Hemoglobin 28.9 pg (27.0-31.2); Mean Corpuscular Volume 88.6 fl (81-99); Mean Platelet Volume 11.5 fl (7.4-10.4); Monocytes # 0.4 K/mm3 (0.1-1.0); Monocytes % 3.5 % (1.7-9.3); Neutrophils # 6.9 K/mm3 (1.8-7.8); Neutrophils % 57.2 % (37.0-80.0); Platelet Count 191 K/mm3 (142-424); Red Blood Count 4.53 M/mm3 (4.20-5.40); Red Cell Distribution Width 13.4 % (11.5-17.5)
[2021-10-17 17:15] LABS: Alanine Aminotransferase 61 U/L (12-78); Albumin/Globulin Ratio 1.5 (1.1-1.8); Alkaline Phosphatase 160 U/L (38-126); Aspartate Amino Transferase 45 U/L (14-36); Blood Urea Nitrogen 11 mg/dl (7-17); Calcium 9.5 mg/dl (8.4-10.2); Carbon Dioxide 24 mmol/L (22.0-30.0); Chloride 106 mmol/L (98-107); Estimated Glomerular Filt Rate 97 ml/min (>60); GFR (African American) 117 ML/MIN (>60); Globulin 2.7 g/dL (1.3-3.2); Glucose 81 mg/dl (74-100); Sodium 137 mmol/L (136-145); Total Protein,Serum 6.7 g/dl (6.3-8.2)
[2021-10-17 17:18] LABS: Bilirubin,Total < 0.1 mg/dl (0.2-1.3)
== END ==
PROVIDERS: PCP Family Medicine; Visit Provider Obstetrics & Gynecology
DX: Z01.812 Encounter for preprocedural laboratory examination (principal); Z20.822 Contact with and (suspected) exposure to COVID-19; N92.0 Excessive and frequent menstruation with regular cycle; N93.9 Abnormal uterine and vaginal bleeding, unspecified
CPT/HCPCS: 36415; 80053; 85025; C9803; U0003; U0005

== ENCOUNTER 2021-10-19 06:01 | Day surgery (SDC) | payer BC, SELFPAY ==
[2021-10-19] VITALS (11 sets, daily range): BP systolic 75–122; BP diastolic 61–75; PULSE 56–82; RESP 16–18; TEMP 36.1–43; O2SAT 97–100; BMI 41.9
[2021-10-19 06:34] LABS: Urine Pregnancy, HCG Qual. Negative (Negative)
--- NOTE | 2021-10-19 06:59 | EXP.ANES.CKL ---
[facility] Medical History delivery delivered No significant past medical history Surgical History H/O myringotomy Family History Other Family history of diabetes mellitus type II Family history of heart attack Social History Smoking Status: Never smoker second hand exposure: No alcohol intake: never substance use type: denies use current occupational status: employed Travel in the last 8 weeks: None current occupational exposures/hazards: No caffeine: Yes [facility] Anesthesia Checklist Patient Identification Patient Identification: Arm Band and Verbal (Name & ) Structural Data Admitted From: Home Planned Operative Procedure/s: Hyst/myosure/tubal Consent for Planned Operative Procedure(s) Verified: Yes NPO Status Verified Time NPO: 00:00 Additional verifications Anesthesia Reactions: No Hx Blood Transfusions: Yes Blood Transfusion Reaction: No ( cold sores ) Airway Assessment C-Spine Mobility Assessed: Yes TMJ Mobility Assessed: Yes Dentition: Good Dentition Neurological Assessment Level of Consciousness: Awake Hx Seizures: No Numbness or tingling in extremities: No Anesthesia Plan Anesthesia Risk discussed: Yes Anesthesia Plan: Verified ASA Class: I Anesthesia Type: General Preoperative Comments Pre-Operative Comments: PONV
--- NOTE | 2021-10-19 09:32 | EXP.ANES.I ---
[facility] Anesthesia Record Part I Anesthesia Record I Intake, IV Amount: 1,300 Estimated blood loss (mL): 10 Urine output (mL): 0 Blood Products used (#): none Blood Pressure: 116/64 SaO2: 98 Pulse Rate: 74 Respiratory Rate: 16 Temperature: 97.7 F Patient is:: Drowsy and Stable Stable to PACU at:: 09:55
--- NOTE | 2021-10-19 09:46 | EXP.OP.NOTE ---
Date of procedure: 10/19/21 Pre-op Diagnosis:: 1. Abnormal uterine bleeding 2. Breakthrough bleeding on Nexplaon 3. Complete family status, desires permanent sterilization Post-op Diagnosis:: 1. Abnormal uterine bleeding 2. Breakthrough bleeding on Nexplaon 3. Complete family status, desires permanent sterilization 4. Intra-abdominal and intrapelvic adhesions Procedure performed:: 1. Laparoscopy, Lysis of adhesions for 40 minutes, bilateral salpingectomy 2. Dilation and curettage, unsuccessful hysteroscopy secondary to small cervix, large uterus and uterus fixed in place 3. Removal of Nexplanon Surgeon:: Anu Snider DO Fire Protection Engineer(s):: N/A FRONT END ARCHITECT:: Jung Caldwell Anesthesia: GETA Estimated blood loss (mL): 50 Clinical Note:: Patient is a very pleasant 31 yo, P3013, with complaint of abnormal uterine bleeding. She had Nexplanon inserted March 2019. She states she has had irregular bleeding since placement and she is tired of it. She is complete with childbearing. She is not interested in Mirena IUD or OCPs. She is interested in endometrial ablation. P3003. History of x 3. TSH 1.99 on 09/08/21. Pelvic ultrasound 09/13/21 was within normal limits. Operative findings:: 1. On bimanual exam, uterus anteverted and fixed in place. No adenxal masses palpated. Cervix small, ~ 1.5 cm in diameter 2. On laparoscopic exam, thick and thin adhesions between omentum and anterior abdominal wall extending from umbilicus down to uterus. Omentum adhered to right fallopian tube and ovary. Thick adhesions between uterus, bladder and anterior pelvic wall. Left fallopian tube adhered to anterior pelvic wall. Grossly normal appearing bilateral ovaries. Of note, if patient requires hysterectomy, would recommend total abdominal hysterectomy. Operative note:: Risks, benefits and alternatives were discussed with the patient. Risks include but are not limited to bleeding, infection, damage to adjacent structures and VTE. Patient voiced understanding and agreed to proceed with surgery. She was wheeled back to the operating room and placed under general anesthesia without difficulty. She was placed in the dorsal lithotomy position and prepped and draped in normal sterile fashion. Straight catheter was used to drain the bladder. A bimanual exam was performed. Uterus was anteverted. A weighted Auvard was placed in the vaginal vault. A single tooth tenaculum was placed on the anterior lip of the cervix. Rockwood manipulator was inserted into the cervical canal and attached to the tenaculum. Weighted Auvard was removed from the vagina. Attention was then drawn to the abdomen. A 2cm infraumbilical incision was made. Veress needle was tested and inserted intraabdominally without difficulty. Opening pressure of 7 mm Hg. Abdomen was then insulflated to 15 mm Hg. Trocar was inserted through infraumbilical incision and laparoscope was inserted. Abdomen was viewed in its entirety. See findings above. Pictures were taken. Infraumbilical omental adhesions were taken down with blunt probe. Visibility of left lower quadrant was achieved. Left lower quadrant was transilluminated. 2 cm incision was made and 11 mm disposable blunt trocar was inserted into the abdomen under direct laparoscopic visualization. Trocar was removed and sleeve was left in place. Lysis of adhesions was continued down to level of uterus and right fallopian tube and ovary using the Harmonic and blunt disseciton. Lysis of adhesions took approximately 40 minutes. Right lower quadrant was transilluminated. A 5 mm incision was made and a 5 mm disposable trocar was inserted into the abdomen under direct laparoscopic visualization. Obturator was removed and sleeve was left in place. Fimbriated end of right fallopian tube was grasped. Harmonic was used to transect the right mesosalpinx and fallopian tube at uterine cornua, leaving right ovary in situ. Same procedure was carried out on the contralateral side.
--- NOTE | 2021-10-19 11:12 | PC.NURSE ---
RFeebackCRNA- assessed upper lip and explained that the tube taped to lip was in that area causing the irritation Dr Snider notified and Acyclovir ordered to give first dose before DC
--- NOTE | 2021-10-20 08:33 | P.PNANES_ITS ---
[facility] Anesthesia Record Part II Anesthesia Record Part II Discharge Time: 10:45 Destination: Outpatient Procedures PACU nurse assessment reviewed?: Yes Patient Condition:: Good Anesthesia Complications:: None Swallowing reflex intact?: Yes Cyanosis?: No Blood Pressure: 119/69 Pulse Rate: 57 Temperature: 98 F Mental Status: Alert & Oriented Pain level:: 3 Nausea and/or vomitting:: None Intake, IV Amount: 0
[2021-10-20 08:35] VITALS: BP 119/69; PULSE 57; TEMP 36.6
== END 2021-10-19 10:45 | disposition home or self-care (01) ==
PROVIDERS: PCP Family Medicine; Visit Provider Obstetrics & Gynecology
PROC: (CPT 58661; principal; 2021-10-19 07:30)
DX: N93.9 Abnormal uterine and vaginal bleeding, unspecified (principal); Z30.2 Encounter for sterilization; N92.0 Excessive and frequent menstruation with regular cycle
CPT/HCPCS: 58661; 58558; 11982; 81025

== ENCOUNTER 2022-05-03 16:17 | Emergency (ER) | payer BC, SELFPAY ==
[2022-05-03 16:30] VITALS: BP 128/84; PULSE 87; RESP 20; TEMP 37.1; O2SAT 99; BMI 39.6
--- NOTE | 2022-05-03 17:02 | EXP.UTC ---
Discharge Plan Disposition Patient Disposition: Home, Self-Care Condition: Good Prescriptions Prescriptions: New prednisone 10 mg tablet 10 mg PO BID 3 Days Qty: 6 0RF amoxicillin [amoxicillin] 500 mg tablet 500 mg PO TID 10 Days Qty: 30 0RF benzonatate [benzonatate] 100 mg capsule 100 mg PO TIDP PRN (Reason: Cough) Qty: 30 0RF Referrals Follow up/Referrals: Livan Tran MD [Primary Care Provider] - See instructions Activity Restrictions/Add. Instructions Additional Instructions/Restrictions: Drink plenty of fluids. Take tylenol or ibuprofen for pain or fever. Take the medications as directed. Follow up with your regular doctor. GO TO THE ER FOR ANY WORSENING SYMPTOMS Clinical Impressions Clinical Impression: Pharyngitis Instructions Patient Instructions: DI for Pharyngitis/Tonsillopharyngitis -- Adult Discharge ED Provider: Zackery Armstrong [facility] [place] General Stated complaint: Cough, runny nose, sore throat Time Seen by Provider: 05/03/22 17:00 History of Present Illness Provider Complaint: She states that for the past 2 days she has had sore throat, chills, body aches and low grade fever. Related Data Previous Rx's Medication Instructions Recorded amoxicillin 500 mg tablet 500 mg PO TID 10 days #30 tabs 05/03/22 benzonatate 100 mg capsule 100 mg PO TIDP PRN Cough #30 caps 05/03/22 prednisone 10 mg tablet 10 mg PO BID 3 days #6 tabs 05/03/22 Allergies Allergy/AdvReac Type Severity Reaction Status Date / Time No Known Allergies Allergy Verified 05/03/22 17:17 [facility] Disclaimer: The information contained in this section may have been updated after the patient was seen, as this information can be updated by other users. Medical History delivery delivered No significant past medical history Surgical History H/O dilation and curettage H/O myringotomy Hx of BSO (bilateral salpingo-oophorectomy) Family History Other Family history of diabetes mellitus type II Family history of heart attack Social History Smoking Status: Never smoker second hand exposure: No alcohol intake: never substance use type: denies use current occupational status: employed Travel in the last 8 weeks: None current occupational exposures/hazards: No caffeine: Yes ROS Obtained: Yes All systems reviewed & no additional complaints except as documented Constitutional Constitutional: Reports chills and Reports fever(s) Eyes Eyes: Denies eye discharge ENT Ears, Nose, Mouth, and Throat: Reports as per HPI Cardiovascular Cardiovascular: Denies chest pain Respiratory Respiratory: Denies chest congestion and Reports cough Gastrointestinal Gastrointestingal: Reports nausea; Denies abdominal pain, constipation, cramping, diarrhea or vomiting Musculoskeletal Musculoskeletal: Denies arthralgias Integumentary/Breasts Skin/Breast: Denies rash Neurologic Neurologic: Denies paresthesias Physical Exam General General appearance: alert and in no apparent distress Head Head exam: atraumatic, normocephalic and normal inspection Eye Eye exam: Present normal appearance, PERRL and EOMI ENT ENT exam: Present mucous membranes moist and normal external ear exam Expanded ENT Exam TM/Canal exam: Bilateral TM: erythema and bulging Nose exam: Absent sinus tenderness Mouth exam: Present normal external inspection; Absent drooling Teeth exam: Present normal inspection Throat exam: Present tonsillar erythema, tonsillomegaly and tonsillar exudate Neck Neck exam: Present normal inspection, full ROM and trachea midline; Absent tenderness, meningismus or lymphadenopathy Chest Chest inspection: Present normal inspection and symmetric chest wall rise; Absent tenderness Respirator
[2022-05-03 17:07] LABS: UTC Strep Screen (Rapid) Negative (Negative)
[2022-05-03 17:35] VITALS: BP 128/84; PULSE 87; RESP 20; TEMP 37.1; O2SAT 99
== END 2022-05-03 17:35 | disposition home or self-care (01) ==
PROVIDERS: Emergency Provider Nurse Practitioner Family; PCP Family Medicine
DX: J02.9 Acute pharyngitis, unspecified (principal); R05.1 Acute cough; R50.9 Fever, unspecified
CPT/HCPCS: 87880; 99212; 99214; G0463

== ENCOUNTER 2022-11-09 15:47 | Emergency (ER) | payer BC, SELFPAY ==
--- NOTE | 2022-11-09 15:53 | EXP.UTC ---
Discharge Plan Disposition Patient Disposition: Home, Self-Care Condition: Good Prescriptions Prescriptions: New amoxicillin-pot clavulanate 875-125 mg Tablet 1 tab PO Q12H Qty: 20 0RF dqwvgjvafyfvphr-jtbvvhelg-HF [Bromfed DM] 2-30-10 mg/5 mL syrup 5 - 10 ml PO Q4H PRN (Reason: Cough) Qty: 240 0RF fluconazole [Diflucan] 150 mg tablet 150 mg PO ONCE PRN (Reason: yeast infection) Qty: 1 0RF Referrals Follow up/Referrals: Livan Tran MD [Primary Care Provider] - See instructions Activity Restrictions/Add. Instructions Additional Instructions/Restrictions: Take all antibiotics as prescribed until gone Replace toothbrush Clinical Impressions Clinical Impression: Acute streptococcal pharyngitis Instructions Patient Instructions: DI for Strep Throat Discharge ED Provider: Andria Lopes [facility] [place] HPI General Stated complaint: sore throat,congestions, h/a Time Seen by Provider: 11/09/22 16:04 History of Present Illness Provider Complaint: Sore throat, congestion, headache X 4 days. Losing voice. No fever. Daughter had strep last week. Onset (ago): day(s) Relieving factors: none Exacerbating factors: none Associated symptoms: denies other symptoms Treatments prior to arrival: none Related Data Previous Rx's Medication Instructions Recorded amoxicillin 875 mg-potassium 1 tab PO Q12H #20 tabs 11/09/22 clavulanate 125 mg tablet qmjamciamhuecap-xuazbckxgorkosc-HH 5 - 10 ml PO Q4H PRN Cough #240 mL 11/09/22 2 mg-30 mg-10 mg/5 mL oral syrup (Bromfed DM) fluconazole 150 mg tablet 150 mg PO ONCE PRN yeast infection 11/09/22 (Diflucan) #1 tab Allergies Allergy/AdvReac Type Severity Reaction Status Date / Time No Known Allergies Allergy Verified 05/03/22 17:17 [facility] Disclaimer: The information contained in this section may have been updated after the patient was seen, as this information can be updated by other users. Medical History delivery delivered No significant past medical history Surgical History H/O dilation and curettage H/O myringotomy Hx of BSO (bilateral salpingo-oophorectomy) Family History Other Family history of diabetes mellitus type II Family history of heart attack Social History Smoking Status: Never smoker second hand exposure: No alcohol intake: never substance use type: denies use current occupational status: employed Travel in the last 8 weeks: None current occupational exposures/hazards: No caffeine: Yes ROS Obtained: Yes All systems reviewed & no additional complaints except as documented Constitutional Constitutional: Reports headache(s) and Reports malaise ENT Ears, Nose, Mouth, and Throat: Reports headache(s) and Reports sore throat Neurologic Neurologic: Reports headache(s) Physical Exam General General appearance: alert and in no apparent distress Head Head exam: atraumatic, normocephalic and normal inspection Eye Eye exam: Present normal appearance, PERRL and EOMI ENT ENT exam: Present normal exam, normal oropharynx, mucous membranes moist, TM's normal bilaterally and normal external ear exam Expanded ENT Exam Throat exam: Present tonsillar erythema, tonsillomegaly and tonsillar exudate Neck Neck exam: Present normal inspection, full ROM and trachea midline; Absent meningismus or lymphadenopathy Chest Chest inspection: Present normal inspection and symmetric chest wall rise; Absent tenderness Respiratory Respiratory exam: Present normal lung sounds bilaterally; Absent respiratory distress Cardiovascular Cardiovascular exam: Present regular rate and normal rhythm; Absent JVD Abdominal Exam Abdominal exam: Present soft and normal bowel sounds; Absent distention, tenderness or guarding Extremitie
[2022-11-09 15:55] VITALS: BP 135/88; PULSE 77; RESP 21; TEMP 36.6; O2SAT 100; BMI 37.3
[2022-11-09 16:11] VITALS: BP 135/88; PULSE 77; RESP 21; TEMP 36.6; O2SAT 100
[2022-11-09 16:11] LABS: UTC Strep Screen (Rapid) Positive (Negative)
== END 2022-11-09 16:17 | disposition home or self-care (01) ==
PROVIDERS: Emergency Provider Physician Assistant; PCP Family Medicine
DX: J02.0 Streptococcal pharyngitis (principal); R51.9 Headache, unspecified
CPT/HCPCS: 87880; 99212; 99214; G0463

== ENCOUNTER 2022-12-16 15:16 | Emergency (ER) | payer BC, SELFPAY ==
[2022-12-16 15:35] VITALS: BP 119/84; PULSE 74; RESP 18; TEMP 37.2; O2SAT 98; BMI 34.2
--- NOTE | 2022-12-16 15:58 | EXP.UTC ---
Discharge Plan Disposition Patient Disposition: Home, Self-Care Referrals Follow up/Referrals: Livan Tran MD [Primary Care Provider] - See instructions Activity Restrictions/Add. Instructions Additional Instructions/Restrictions: Suture instructions: ?You have required stitches today. Please read the following instructions so you know how to care for them: ?1. Keep wound area dry for the first 24 hours. 2?? May clean gently with mild soap and water, after 48 hours to prevent crusting over suture knots. 3. You may shower if your provider gives permission but do not take a bath until the skin is healed.. 4. Never leave a wet dressing or Band-Aid on your stitches as this allows bacteria to reach the area and may cause infection. Band-aids can cause the wound to sweat and not recommended to wear for long periods of time Watch for signs of infection: ? Increasing redness, tenderness or warmth around the suture site ? Unusual swelling around the site ? Appearance of pus around each suture or any red streaks ? Fever If you develop any of the above signs or symptoms of infection, Follow up with Family Physician immediately 5. Suture removal in _7-10___days 6. Return to [facility] or follow up with family doctor for removal. This can be done by any medical provider dur?ing regular hours on Saturday through Saturday, by appointment. Clinical Impressions Clinical Impression: Laceration Stand Alone Forms Stand Alone Forms: Work/School Release Instructions Patient Instructions: DI for Laceration Repair, Laceration Repair Discharge ED Provider: Danisha Lindsey [facility] [place] General Stated complaint: ao 12/16 vut left hand Mode of Arrival: Ambulatory Source of Information: Patient Limitations: No Limitations Time Seen by Provider: 12/16/22 15:58 Description of Symptoms (Recalled from Triage Doc. by RN): PATIENT C/O CUT TO LEFT HAND THAT OCCURED WHILE CARVING A PUMPKIN TODAY HEENT Symptoms (Recalled from RN notes): No Resp Symptoms (Recalled from RN notes): No Skin Symptoms (Recalled from RN notes): Yes MS Symptoms (Recalled from RN notes): No Functional Status (Recalled from RN notes): WNL History of Present Illness Provider Complaint: Patient states that she was carving a pumpkin and the knife slipped causing laceration to the side of her left hand States that noticed it looked like it may need sutures so she came in to get it checked Related Data Allergies Allergy/AdvReac Type Severity Reaction Status Date / Time No Known Allergies Allergy Verified 05/03/22 17:17 Worker's Comp Is this a Worker's Comp case?: No [facility] Disclaimer: The information contained in this section may have been updated after the patient was seen, as this information can be updated by other users. Medical History delivery delivered No significant past medical history Surgical History H/O dilation and curettage H/O myringotomy Hx of BSO (bilateral salpingo-oophorectomy) Family History Other Family history of diabetes mellitus type II Family history of heart attack Social History Smoking Status: Never smoker second hand exposure: No alcohol intake: never substance use type: denies use current occupational status: employed Travel in the last 8 weeks: None current occupational exposures/hazards: No caffeine: Yes ROS Obtained: Yes All systems reviewed & no additional complaints except as documented and Yes Systems reviewed as appropriate & no additional complaints except as documented Constitutional Constitutional: Reports system reviewed and no additional complaints, except as documented and Reports as per HPI Cardiovascular Cardiovascular: Reports system reviewed and no additional complaints, except as d
[2022-12-16 16:33] VITALS: BP 119/84; PULSE 74; RESP 18; TEMP 37.2; O2SAT 98
== END 2022-12-16 16:35 | disposition home or self-care (01) ==
PROVIDERS: Emergency Provider Nurse Practitioner; PCP Family Medicine
DX: S61.412A Laceration without foreign body of left hand, initial encounter (principal); W26.0XXA Contact with knife, initial encounter
CPT/HCPCS: 12001; 90715; 96372; 99213; 99214; G0463

== ENCOUNTER 2023-02-27 16:28 | Emergency (ER) | payer BC, SELFPAY ==
[2023-02-27 16:40] VITALS: BP 136/87; PULSE 89; RESP 18; TEMP 36.7; O2SAT 98; BMI 38.9
--- NOTE | 2023-02-27 17:09 | EXP.UTC ---
Discharge Plan Disposition Patient Disposition: Home, Self-Care Condition: Good Prescriptions Prescriptions: New methylprednisolone [Medrol (Tito)] 4 mg tablets,dose pack See Rx Instructions .Route .COMPLEX 6 Days Qty: 21 0RF Rx Instructions: taper pack; amoxicillin-pot clavulanate 875-125 mg Tablet 1 tab PO Q12H Qty: 20 0RF guaifenesin [Mucinex] 600 mg tablet extended release 12hr 1,200 mg PO BID PRN (Reason: cough) Qty: 20 0RF Referrals Follow up/Referrals: Livan Tran MD [Primary Care Provider] - See instructions Activity Restrictions/Add. Instructions Additional Instructions/Restrictions: *Monitor Temp, Over the counter Motrin or Tylenol as directed/as needed Tylenol every 4 hours and Motrin every 6 hours (as long as your family doctor has told you that you can take it) for fever or pain. and straight to ER if unable to lower temp less than 101.0 after medication given *Warm salt water gargles may help to soothe the throat *Throat Lozenges? *Warm fluids like tea with honey may help to soothe the throat? *Sleep elevated *Humidifier/Vaporizer Take medication as prescribed Follow up IMMEDIATELY for new or worsening symptoms or no Noticeable improvement over the next 48-72 hours. 911 for difficulty breathing or swallowing Clinical Impressions Clinical Impression: Sinusitis Qualifiers: Sinusitis location: unspecified location Chronicity: unspecified Qualified Code(s): J32.9 - Chronic sinusitis, unspecified Instructions Patient Instructions: DI for Sinusitis, Sinusitis Discharge ED Provider: Danisha Lindsey [facility] General Stated complaint: berta Mode of Arrival: Ambulatory Source of Information: Patient Limitations: No Limitations Time Seen by Provider: 02/27/23 17:09 Description of Symptoms (Recalled from Triage Doc. by RN): Pt's symptoms are congestion, fever, chills, and sore throat. HEENT Symptoms (Recalled from RN notes): Yes Resp Symptoms (Recalled from RN notes): No Skin Symptoms (Recalled from RN notes): No MS Symptoms (Recalled from RN notes): No Functional Status (Recalled from RN notes): n/a History of Present Illness Provider Complaint: Patient states that for several days she has been having sinus pain and pressure, fever, headache, sore scratchy throat and over all not feeling well States that today the pressure behind her eyes was worse so she came in to get checked Related Data Previous Rx's Medication Instructions Recorded amoxicillin 875 mg-potassium 1 tab PO Q12H #20 tabs 02/27/23 clavulanate 125 mg tablet guaifenesin 600 mg tablet, 1,200 mg PO BID PRN cough #20 tabs 02/27/23 extended release 12 hr (Mucinex) methylprednisolone 4 mg tablets in See Rx Instructions .Route 02/27/23 a dose pack (Medrol (Tito)) .COMPLEX 6 days #21 tabs Allergies Allergy/AdvReac Type Severity Reaction Status Date / Time No Known Allergies Allergy Verified 02/27/23 17:08 Worker's Comp Is this a Worker's Comp case?: No [facility] Disclaimer: The information contained in this section may have been updated after the patient was seen, as this information can be updated by other users. Medical History delivery delivered No significant past medical history Surgical History H/O dilation and curettage H/O myringotomy Hx of BSO (bilateral salpingo-oophorectomy) Family History Other Family history of diabetes mellitus type II Family history of heart attack Social History Smoking Status: Never smoker second hand exposure: No alcohol intake: never substance use type: denies use current occupational status: employed Travel in the last 8 weeks: None current occupational exposures/hazards: No caffeine: Yes ROS Obtained: Yes All systems reviewed & no additional complaints except as documented and Yes Systems reviewed as appropriate & no additional complaints except as documented Constitutional Constitutional: Reports system reviewed and no additional complaints, except as documented, Reports as per HPI, Reports fever(s) and Reports headache(s) ENT Ears, Nose, Mouth, and Throat: Reports system reviewed and no additional complaints, except as documented, Reports as per HPI, Reports headache(s), Reports nasal congestion, Reports nasal discharge and Reports sore throat Cardiovascular Cardiovascular: Reports system reviewed and no additional complaints, except as documented and Reports as per HPI Respiratory Respiratory: Reports system reviewed and no additional complaints, except as documented and Reports as per HPI Gastrointestinal Gastrointestingal: Reports system reviewed and no additional complaints, except as documented and as per HPI Neurologic Neurologic: Reports headache(s) Physical Exam General General appearance: alert and in no apparent distress ENT ENT exam: Present mucous membranes moist Expanded ENT Exam Nose exam: Present sinus tenderness Throat exam: Present other (Pharyngeal erythema noted with PND) Respiratory Respiratory exam: Present normal lung sounds bilaterally; Absent respiratory distress or wheezes Cardiovascular Cardiovascular exam: Present regular rate, normal rhythm and normal heart sounds Neurological Exam Neurological exam: Present alert, oriented X3 and normal gait Medical Decision Making Andrae Inquiry Pt receiving controlled substance: No Andrae was queried for this patient: No Vital Signs: 02/27/23 16:40 Temperature 98.1 F Temperature Source Oral Pulse Rate [Right Radial] 89 Respiratory Rate 18 Blood Pressure [Right Arm] 136/87 Blood Pressure Mean [Right Arm] 103 Blood Pressure Source [Right Arm] Automatic Cuff Blood Pressure Position [Right Arm] Sitting 02 Sat by Pulse Oximetry 98 Oxygen Delivery Method Room Air Lab Data Lab results reviewed: Yes I reviewed the patient's lab results.
[2023-02-27 17:17] LABS: UTC Influenza A Antigen Negative (Negative); UTC Influenza B Antigen Negative (Negative)
[2023-02-27 17:22] VITALS: BP 136/87; PULSE 89; RESP 19; TEMP 36.7; O2SAT 98
== END 2023-02-27 17:22 | disposition home or self-care (01) ==
PROVIDERS: Emergency Provider Nurse Practitioner; PCP Family Medicine
DX: J01.90 Acute sinusitis, unspecified (principal); R51.9 Headache, unspecified; R09.81 Nasal congestion; R50.9 Fever, unspecified; R07.0 Pain in throat
CPT/HCPCS: 87804; 99212; 99214; G0463

== ENCOUNTER 2023-04-16 16:28 | Outpatient (POV) | payer BC, SELFPAY | END 2023-04-16 23:59 | disposition home or self-care (01) | LOC: SC 16:28 | PROVIDERS: PCP Family Medicine; Visit Provider Dermatology | DX: Z00.00 Encounter for general adult medical examination without abnormal findings (principal) ==

== ENCOUNTER 2023-04-29 15:55 | Outpatient (CLI) | payer BC, SELFPAY ==
--- NOTE | 2023-04-29 15:56 | US_ITS ---
PROCEDURE: US TRANSVAGINAL CLINICAL INDICATION: abnormal uterine bleeding COMPARISON: No exams were available for comparison FINDINGS: Transvaginal sonographic images of the pelvis were obtained. UTERUS: 9.2cm x 5.0cmx 5.3cm anteverted with a combined endometrial thickness of 7.8mm. LEFT OVARY: 2.5 cmx2.2cmx2.1cm with a volume of 5.8ml. There are several small calcifications within left ovary. RIGHT OVARY: 2.2cmx 2.4cmx2.5 cm with a volume of 6.8ml. Right ovary has multiple follicular cysts the largest of which measures 8.8 mm. Both ovaries are seen and appear normal. Doppler flow to both ovaries are seen. There is no fluid in the cul-de-sac. IMPRESSION: 1. Anteverted bulky uterus. The endometrium is normal at 7.8 mm. 2. The left ovary appears normal with a few small calcifications of questionable significance. 3. The right ovary appears normal with multiple small follicles. 4. No fluid in the cul-de-sac. Dictated by: Jameson Lopez MD 05/01/2023 03:25 Jameson Lopez MD in OV 05/01/2023 03:25
== END 2023-04-29 23:59 ==
LOC: RAD 15:56
PROVIDERS: PCP Family Medicine; Visit Provider Obstetrics & Gynecology
DX: N93.9 Abnormal uterine and vaginal bleeding, unspecified (principal)
CPT/HCPCS: 76830

== ENCOUNTER 2023-09-14 11:48 | Outpatient (CLI) | payer BC, SELFPAY ==
[2023-09-14 12:12] LABS: Basophils # 0.1 K/mm3 (0-0.2); Basophils % 1.4 % (0.1-2.0); Eosinophils # 0.7 K/mm3 (0.0-0.4); Eosinophils % 8.1 % (0.1-12.0); Hematocrit 36.4 % (37.0-47.0); Hemoglobin 13.3 g/dL (12.2-16.2); Lymphocytes # 3.1 K/mm3 (0.7-4.5); Lymphocytes % 36.3 % (10-50); Mean Corpuscular HGB Conc 36.4 g/dL (31.8-35.4); Mean Corpuscular Volume 88.1 fl (81-99); Monocytes # 0.3 K/mm3 (0.1-1.0); Monocytes % 3.7 % (1.7-9.3); Neutrophils # 4.3 K/mm3 (1.8-7.8); Neutrophils % 50.6 % (37.0-80.0); Platelet Count 191 K/mm3 (142-424); Red Blood Count 4.14 M/mm3 (4.20-5.40); Red Cell Distribution Width 13.9 % (11.5-17.5); White Blood Count 8.5 K/mm3 (4.8-10.8)
[2023-09-14 12:24] LABS: Chloride 109 mmol/L (98-107); Sodium 140 mmol/L (136-145)
[2023-09-14 12:25] LABS: Potassium 3.8 mmoL/L (3.5-5.1)
[2023-09-14 12:27] LABS: Alanine Aminotransferase 47 U/L (12-78); Anion Gap 7.8 mEq/L (5-15); Aspartate Amino Transferase 35 U/L (14-36); Blood Urea Nitrogen 14 mg/dl (7-17); Carbon Dioxide 27 mmol/L (22.0-30.0); Estimated Glomerular Filt Rate 96 ml/min (>60); GFR (African American) 116 ML/MIN (>60)
[2023-09-14 12:28] LABS: Albumin/Globulin Ratio 1.5 (1.1-1.8); Alkaline Phosphatase 113 U/L (38-126); Bilirubin,Total 0.5 mg/dl (0.2-1.3); Globulin 2.7 g/dL (1.3-3.2); Glucose 96 mg/dl (74-100); Total Protein,Serum 6.7 g/dl (6.3-8.2)
[2023-09-14 12:46] LABS: HCG,Quantitative < 2 mIU/ml (0-5.42)
== END 2023-09-14 23:59 | disposition home or self-care (01) ==
LOC: LAB 11:49
PROVIDERS: Visit Provider Obstetrics & Gynecology
DX: N93.9 Abnormal uterine and vaginal bleeding, unspecified (principal); Z34.90 Encounter for supervision of normal pregnancy, unspecified, unspecified trimester
CPT/HCPCS: 36415; 80053; 84702; 85025; 86850

== ENCOUNTER 2023-09-16 06:33 | Inpatient (IN) | payer BC, SELFPAY ==
[2023-09-12 10:43] VITALS: BMI 43.9
[2023-09-16] VITALS (21 sets, daily range): BP systolic 110–140; BP diastolic 59–95; PULSE 64–86; RESP 14–18; TEMP 36.2–36.9; O2SAT 95–100
[2023-09-16] MEDS: ACETAMINOPHEN 500MG TAB 1000 MG PO ×3 (06:26→18:14)
[2023-09-16] MEDS: LACTATED RINGERS 1000ML 1,000 ML 25 ML IV (06:26)
[2023-09-16] MEDS: GABAPENTIN 300MG CAPSULE 600 MG (06:27)
[2023-09-16] MEDS: CELECOXIB 100MG CAPSULE 400 MG PO (06:27)
--- NOTE | 2023-09-16 07:02 | P.PNANES_ITS ---
[facility] Disclaimer: The information contained in this section may have been updated after the patient was seen, as this information can be updated by other users. Medical History Intra-abdominal adhesions Labia minora hypertrophy GERD (gastroesophageal reflux disease) Abnormal uterine bleeding Herpes simplex labialis Surgical History History of bilateral salpingectomy History of delivery H/O dilation and curettage H/O myringotomy Family History Other Family history of diabetes mellitus type II Family history of heart attack Social History Smoking Status: Never smoker second hand exposure: No alcohol intake: never substance use type: denies use current occupational status: employed Travel in the last 8 weeks: None current occupational exposures/hazards: No caffeine: Yes [facility] Anesthesia Checklist Patient Identification Patient Identification: Arm Band and Other: Structural Data Admitted From: Home Planned Operative Procedure/s: SEAN. pOSSIBLE cYSTOSCOPY . LSO NPO Status Verified Time NPO: 00:00 Additional verifications Patient : No Anesthesia Reactions: No Hx Blood Transfusions: No Blood Transfusion Reaction: No ( cold sores ) Cephalosporin Allergy: No Previous Colonoscopy: No Airway Assessment Mallampati Score:: Class II C-Spine Mobility Assessed: Yes TMJ Mobility Assessed: Yes Dentition: Good Dentition Neurological Assessment Level of Consciousness: Awake, Alert, Appropriate and Follows Commands Hx Seizures: No Numbness or tingling in extremities: No Anesthesia Plan Anesthesia Risk discussed: Yes ASA Class: II Anesthesia Type: General w/block
[2023-09-16] MEDS: CEFAZOLIN SODIUM 2 GM in 0.9 % SODIUM CHLORIDE 100 ML IV (07:13)
--- NOTE | 2023-09-16 07:15 | P.HP_ITS ---
History of Present Illness *Admission Date: 09/16/23 *Reason for visit:: Abnormal uterine bleeding *History of present illness: Ms Carissa Escobar is a 33 yo P3013 who presents to [facility] for scheduled procedure. She complains of abnormal uterine bleeding. She complains of heavy, irregular, painful periods. Sometimes periods occur twice in one month. She has history of laparoscopy, lysis of adhesions for 40 minutes, bilateral salpingectomy, dilation and curettage, unsuccessful hysteroscopy secondary to small cervix, large uterus and uterus fixed in place. History of x 3. She desires definitive surgical intervention with hysterectomy. She also reports left labia minora being longer than right and rubbing on clothing as well as discomfort with intercourse. She admits she has to tuck in left labai minora to help with discomfort. [facility] Disclaimer: The information contained in this section may have been updated after the patient was seen, as this information can be updated by other users. Medical History Intra-abdominal adhesions Labia minora hypertrophy GERD (gastroesophageal reflux disease) Abnormal uterine bleeding Herpes simplex labialis Surgical History History of bilateral salpingectomy History of delivery H/O dilation and curettage H/O myringotomy Family History Other Family history of diabetes mellitus type II Family history of heart attack Social History Smoking Status: Never smoker second hand exposure: No alcohol intake: never substance use type: denies use current occupational status: employed Travel in the last 8 weeks: None current occupational exposures/hazards: No caffeine: Yes Review of Systems Review of Systems Review of systems:: pertinent systems reviewed and negative unless documented below *Genitourinary Genitourinary: Reports abnormal menses, Reports abnormal vaginal bleeding and Reports menorrhagia Meds Home Medications and Allergies Home Medications ?Medication ?Instructions ?Recorded ?Confirmed ?Type pantoprazole 20 mg tablet,delayed 20 mg PO DAILY 09/09/23 09/16/23 History release New Prescriptions to Start Prescriptions: Allergies Allergy/AdvReac Type Severity Reaction Status Date / Time No Known Allergies Allergy Verified 09/12/23 10:39 Exam Data for Last 24 hours Vital signs and Labs for Last 24 Hours: Temp Pulse Resp BP Pulse Ox O2 Del Method 97.2 F L 85 18 123/78 98 Room Air 09/16/23 06:30 09/16/23 06:30 09/16/23 06:30 09/16/23 06:30 09/16/23 06:30 09/16/23 06:30 Constitutional Constitutional: no acute distress and cooperative *Routine HEENT Exam Head: Present normocephalic and atraumatic Eye: Absent conjunctivae pink ENT: Present mucous membranes moist *Routine Neck Exam Neck: Present supple and full ROM *Routine Respiratory Exam Respiratory: Present CTA bilaterally and normal respiratory effort *Routine Cardiovascular Exam Cardiovascular: Present RRR *Routine Abdominal Exam Abdominal: Present soft; Absent tenderness or distended *Routine Rectal Exam Rectal:: deferred *Routine Genitalia Exam Genitalia:: normal female *Routine Extremities Exam Extremities: Present full ROM; Absent edema or calf tenderness Assessment and Plan *Assessment and plan (1) Abnormal uterine bleeding: Status: Chronic Category: Medical Code(s): N93.9 - Abnormal uterine and vaginal bleeding, unspecified (2) History of delivery: Problem Comment: x 3 Status: Acute Category: Surgical Code(s): Z98.891 - History of uterine scar from previous surgery (3) History of bilateral salpingectomy: Status: Acute Category: Surgical Code(s): Z90.79 - Acquired absence of other genital organ(s) (4) Intra-abdominal adhesions: Problem Comment: History of adhesions with last surgery Status: Acute Category: Medical Code(s): K66.0 - Peritoneal adhesions (postprocedural) (postinfection) (5) Labia minora hypertrophy: Status: Acute Category: Medical Code(s): N90.60 - Unspecified hypertrophy of vulva Plan Reviewed SEAN. She has history of bilateral salpingectomy. She will keep her o varies. Reviewed left labiaplasty. Discussed surgery in detail. Discussed risks, benefits, alternatives, expectations and possible complications of surgery. Risks include but are not limited to bleeding; infection; damage to adjacent structures (bowel, bladder, nerves, blood vessels, etc) (possibly requiring further intervention and/or longer hospital stay - specifically discussed possible incental cystotomy with dense scar tissue between bladder and uterus and the possibility of going home with a catheter in place for 10-14 days to allow bladder to heal. Also discussed bowel injury with possible bowel resection); VTE; risks with anesthesia; and risk of . Discussed possibility of supracervical hysterectomy. She is okay with that if needed. All questions addressed and answered. Patient voiced understanding of risks and possible complications. Patient desires to proceed with surgery. Consent form signed. Proceed with SEAN, possible cystoscopy, left labiaplasty
[2023-09-16] MEDS: METRONIDAZ/SOD CHL 500 MG/100 ML PIGGYBACK 100 MG IV (07:30)
[2023-09-16 09:48] LABS: Microscopic,Cath URINE MICROSCOPIC (MICROSCOPIC)
--- NOTE | 2023-09-16 09:50 | EXP.ANES.I ---
[facility] Anesthesia Record Part I Anesthesia Record I Intake, IV Amount: 850 Hydration: Adequate Estimated blood loss (mL): 150 Urine output (mL): 150 Blood Products used (#): none Blood Pressure: 115/73 SaO2: 99 Pulse Rate: 82 Airway Patency: Patent Respiratory Rate: 14 Temperature: 97.2 F Patient is:: Drowsy and Stable
[2023-09-16 09:58] LABS: Appearance,Urine/Cath CLEAR (Clear); Bilirubin,Cath Negative (Negative); Blood, Urine/Cath Negative (Negative); Color,Urine/Cath YELLOW (Yellow); Glucose,Urine/Cath (UA) Negative (Negative); Ketones,Urine/Cath Negative (Negative); Leukocyte Esterase,Cath Negative (Negative); Nitrate,Cath Negative (Negative); Protein,Urine/Cath Negative (Negative); Specific Gravity, Urine/Cath >= 1.030 (1.005-1.030); Urobilinogen,Cath 0.2 EU/dl (0.2)
--- NOTE | 2023-09-16 09:58 | P.OP_ITS ---
Date of procedure: 09/16/23 Pre-op Diagnosis:: 1. Abnormal uterine bleeding 2. History of x 3 3. History of intraabdominal adhesions 4. Left labia hypertrophy Post-op Diagnosis:: 1. Abnormal uterine bleeding 2. History of x 3 3. History of intraabdominal adhesions 4. Left labia hypertrophy 5. Intraabdominal adhesions Procedure performed:: 1. Left labiaplasty 2. Total abdominal hysterectomy Surgeon:: Anu Snider DO Flow Match Sofa Cutter(s):: Jameson Lopez MD MILLINERY BLOCKER:: Zackery Ash Anesthesia: GETA Estimated blood loss (mL): 150 Clinical Note:: Ms Carissa Escobar is a 33 yo P3013 who presents to [facility] for scheduled procedure. She complains of abnormal uterine bleeding. She complains of heavy, irregular, painful periods. Sometimes periods occur twice in one month. She has history of laparoscopy, lysis of adhesions for 40 minutes, bilateral salpingectomy, dilation and curettage, unsuccessful hysteroscopy secondary to small cervix, large uterus and uterus fixed in place. History of x 3. She desires definitive surgical intervention with hysterectomy. She also reports left labia minora being longer than right and rubbing on clothing as well as discomfort with intercourse. She admits she has to tuck in left labai minora to help with discomfort. Operative findings:: 1. Left labia minora measures 4 cm in length, right laba minora measure 1.5 cm in length 2. Uterus, normal size, fixed in the pelvis, anteverted 3. Upon laparotomy, uterus densely adhered to anterior abdominal wall. Grossly normal appearing bowel and bilateral ovaries. Bilateral fallopian tubes surgically absent Operative note:: Discussed risks, benefits, alternatives, expectations and possible complications of surgery. All questions addressed and answered. Patient wished to proceed with surgery. Patient was wheeled back to the operating room and placed under general anesthesia without difficulty. The patient received 2 grams of Ancef and 500 mg of Flagyl preoperatively. SCDs in place. She was placed in dorsal lithotomy position and prepped and draped in normal sterile fashion. A bimanual exam was performed. Left labia minor was grasped with Allis clamps and approximately 1.5 cm of left labia majora was excised. Tissue will be sent to pathology for review. 3-0 Vicryl suture was used in a running locking fashion to close excision site. Scant bleeding noted. Rosario catheter was inserted and draining clear urine prior to the start of the procedure. Drapes were removed. She was placed in the supine position. She was prepped and draped in normal sterile fashion. Attention was then turned to the abdomen. A Pfannenstiel skin incision was made 2 cm above pubic symphysis, slightly above prior pfannenstiel incision scar. This was carried through to underlying layer of fascia. Fascia was incised in midline, extended laterally with Ortiz scissors. Superior aspect of fascial incision was grasped with two Yadira clamps, elevated up, and rectus muscle dissected off bluntly and sharply with Ortiz scissors. The retcus muscle was then in the midline and the peritoneum was entered bluntly with a digit. Peritoneal incision was then extended superiorly. Tissue was very thick and dense inferiorly. Uterus was densley adhered to anterio abdominal wall. Inferior rectus muscle and fascia taken down very carefully. Lysis of adhesions between uterus and anterior abdominal wall performed with sharp dissection. Uterus was deviated to the right, left round ligament was placed on stretch and incised between two clamps. The distal stump of the round ligament was suture ligated with 0 Vicryl suture. The proximal stump was held with a Yadira clamp. The leaves of the broad ligament were opened both anteriorly and posteriorly. Bowel was packed cephalad with warm moist laparotomy sponge. O'Esteban O'pinto retractor was placed in the abdominal incision. The uterus was retracted cephalad. The anterior leaf of the broad ligament was opened down to the vesicouterine fold. Same procedure was carried out on the contralateral side. The vesicouterine peritoneal fold was elevated, and the bladder was dissected off of the lower uterine segment with sharp and blunt dissection. The uterus was retracted toward the pubic symphysis and deviated to right side. A finger was inserted through the peritoneum of the posterior leaf of the broad ligament under the ligament of the ovary. The mesoovarium and ligament were doubly clamped, incised and tied with 0 Vicryl suture leaving the ovary in situ. The distal stump was doubly suture ligated. The same procedure was carried out on the contralateral side. The uterus was retracted cephalad and deviated to the right side. Uterine arteries were skeletonized. Three curved Yadira clamps were placed at the junction of the lower uterine segment on the uterine vessels. An incision was made between the upper clamp and two lower clamps. The stump was doubly suture ligated with 0 Vicryl. The same procedure was carried out on the contralateral side. The uterus was held in traction in the cephalad position and pubovescial cervical fascia was dissected inferiorly. Two straight Yadira clamps were applied to the cardinal ligament. Cardinal ligament was incised between the two clamps and the distal stump was ligated with 0 Vicryl suture. The same procedure was carried out on the contralateral side. Bilateral uterosacral ligaments were clamped between straight Yadira clamps, incised, and suture ligated with 0 Vicryl suture. The lower uterine segment and upper vagina were palpated between the thumb and first finger of the surgeon's hand to ensure that the ligaments have been completely incised. The vagina was entered by a stab wound with a scalpel and cut circumferentially with scalpel and Joregenson scissors. The uterus and cervix was removed. Specimen will be sent to pathology for review. The edges of the vagina were grasped with straight Yadira clamps. Vaginal cuff was closed in a running locking manner with 1 Vicryl suture. Small amount of oozing on left ovary. Surgicel powder applied. Surgicel Gel Foam applied over vaginal cuff. Hemostasis was noted. At this point all instruments and sponges were removed from the pelvis.?The corners of the fascia were grasped with Yadira clamps, and the fascia was reapproximated with two # 1 Vicryl suture overlapped to the right of midline. The subcutaneous tissue was irrigated. Subcutaneous tissue was reapproximated with 2-0 Vicryl. The skin was reapproximated with Insorb harry. Steri strips and Telfa were placed over closed Pfannenstiel skin incision. Patient awoke from anesthesia without difficulty and was transferred to the recovery room in stable condition. Condition: stable Disposition: floor Specimens:: 1. Uterus and cervix 2. Portion of left labia minora Complications:: None
[2023-09-16] MEDS: HYDROMORPHONE 2MG/ML SYRINGE 0.5 MG IV ×2 (10:06→10:30)
[2023-09-16 10:16] LABS: Bacteria,Urine/Cath TRACE /lpf; Mucus,Urine/Cath Trace /lpf; RBC,Urine/Cath Occasional # /hpf (0-3); WBC,Urine/Cath Occasional #/hpf (0-3)
[2023-09-16] MEDS: HYDROMORPHONE 2MG/ML SYRINGE 1 MG IV ×3 (11:10→19:52)
[2023-09-16] MEDS: KETOROLAC 30MG/ML VIAL 30 MG IV ×2 (12:16→18:14)
[2023-09-16] MEDS: LACTATED RINGERS 1000ML 1,000 ML 125 ML IV ×2 (12:17→21:39)
[2023-09-16] MEDS: CEFAZOLIN SODIUM 2 GM in 0.9 % SODIUM CHLORIDE 50 ML IV ×2 (14:13→21:39)
[2023-09-16] MEDS: PROMETHAZINE HCL 25MG/ML 1ML VIAL 12.5 MG IV (16:56)
[2023-09-16] MEDS: SODIUM CHLORIDE 0.9% 25ML BAG 25 ML IV (16:57)
[2023-09-16] MEDS: POLYETHYLENE GLYCOL 3350 17 GM PACKET PO (20:00)
[2023-09-17] VITALS (7 sets, daily range): BP systolic 109–132; BP diastolic 61–76; PULSE 68–81; RESP 16–18; TEMP 36.7–36.9; O2SAT 96–100
[2023-09-17] MEDS: ACETAMINOPHEN 500MG TAB 1000 MG PO ×5 (00:10→22:33)
[2023-09-17] MEDS: KETOROLAC 30MG/ML VIAL 30 MG IV ×2 (00:10→05:03)
--- NOTE | 2023-09-17 04:54 | PC.NURSE ---
No acute changes to note since previous assessment, has rested well throughout the night. vital signs stable. bowels sounds remain hypoactive. tolerating clear liquid diet at this time. pain is controlled with scheduled and prn medications, see emar.
[2023-09-17] MEDS: LACTATED RINGERS 1000ML 1,000 ML 125 ML IV (05:03)
[2023-09-17] MEDS: HYDROMORPHONE 2MG/ML SYRINGE 1 MG IV (05:17)
[2023-09-17 07:02] LABS: Anion Gap 4.8 mEq/L (5-15); Blood Urea Nitrogen 5 mg/dl (7-17); Calcium 8.1 mg/dl (8.4-10.2); Carbon Dioxide 26 mmol/L (22.0-30.0); Chloride 109 mmol/L (98-107); Creatinine Clearance Estimated 125 mL/min (50-200); Estimated Glomerular Filt Rate 141 ml/min (>60); GFR (African American) 171 ML/MIN (>60); Glucose 100 mg/dl (74-100); Potassium 3.8 mmoL/L (3.5-5.1); Sodium 136 mmol/L (136-145)
[2023-09-17 07:03] LABS: Basophils # 0.1 K/mm3 (0-0.2); Basophils % 0.5 % (0.1-2.0); Eosinophils # 0.1 K/mm3 (0.0-0.4); Eosinophils % 1.3 % (0.1-12.0); Hematocrit 31.3 % (37.0-47.0); Hemoglobin 11.1 g/dL (12.2-16.2); Lymphocytes # 2.5 K/mm3 (0.7-4.5); Lymphocytes % 25.1 % (10-50); Mean Corpuscular HGB Conc 35.6 g/dL (31.8-35.4); Mean Corpuscular Hemoglobin 31.5 pg (27.0-31.2); Mean Corpuscular Volume 88.6 fl (81-99); Mean Platelet Volume 11.1 fl (7.4-10.4); Monocytes # 0.4 K/mm3 (0.1-1.0); Monocytes % 4.2 % (1.7-9.3); Neutrophils # 6.7 K/mm3 (1.8-7.8); Platelet Count 166 K/mm3 (142-424); Red Blood Count 3.53 M/mm3 (4.20-5.40); Red Cell Distribution Width 14.2 % (11.5-17.5); White Blood Count 9.8 K/mm3 (4.8-10.8)
[2023-09-17] MEDS: POLYETHYLENE GLYCOL 3350 17 GM PACKET PO ×2 (08:14→20:18)
--- NOTE | 2023-09-17 08:27 | PC.NURSE ---
at bs to see pt. IV saline locked at this time. Rosario catheter removed. Tolerated well. Urine specimen hat placed in toilet for measuring voids. Pt also provided a nick-bottle to use while voiding for comfort. Diet advanced to regular. (+)BS all quads, passing flatus, scant amt of vaginal spotting noted on pad. Currently has abdominal binder in place for support. Lungs sounds clear (bilat and throughout). V/S wnl, afebrile. Scuds removed for ambulation. LTV incision surgery dressing removed per . Incision well approximated, no s/s of infection, no drainage or bruising. Incision left SOFTWARE SECURITY CONSULTANT. Loose ABD Pad placed across it to keep underwear from rubbing it.
--- NOTE | 2023-09-17 09:21 | P.PNANES_ITS ---
[facility] Anesthesia Record Part II Anesthesia Record Part II Discharge Time: 10:10 Destination: Obstetric PACU nurse assessment reviewed?: Yes Patient Condition:: Good Anesthesia Complications:: None Swallowing reflex intact?: Yes Airway Patency: Patent Cyanosis?: No Blood Pressure: 132/76 SaO2: 99 Respiratory Rate: 16 Pulse Rate: 68 Temperature: 98.1 F Mental Status: Alert & Oriented Pain level:: 7 Nausea and/or vomitting:: None Intake, IV Amount: 0 Hydration: Adequate
[2023-09-17] MEDS: OXYCODONE 5MG IMMEDIATE RELEASE TABLET 5 MG PO ×3 (10:09→20:17)
[2023-09-17] MEDS: IBUPROFEN 400 MG TABLET 800 MG PO ×2 (11:47→20:17)
--- NOTE | 2023-09-17 12:52 | P.PN_ITS ---
Subjective *Date: 09/17/23 *Time: 12:52 Interval history: POD # 1 s/p Left labiaplasty, Total abdominal hysterectomy She is feeling well. Pain controlled. Cano catheter draining clear urine. Passing flatus. Denies fever/chills, chest pain and shortness of breath. No lower extremity swelling or calf pain. She has not been up ambulating yet. Medical Exam Vital signs and Labs for Last 24 Hours: Vital Signs Temp Pulse Resp BP Pulse Ox O2 Del Method 09/17/23 09:22 16 09/17/23 08:45 100 Room Air 09/17/23 08:25 98.4 F 69 18 125/68 100 Room Air 09/17/23 07:30 Room Air 09/17/23 05:48 Room Air 09/17/23 04:00 Room Air 09/17/23 02:00 Room Air 09/17/23 00:20 98.4 F 68 18 109/61 L 96 Room Air 09/17/23 00:00 Room Air 09/16/23 22:00 Room Air 09/16/23 20:00 Room Air 09/16/23 20:00 100 Room Air 09/16/23 19:00 98.5 F 86 18 117/71 100 Room Air 09/16/23 18:14 Room Air 09/16/23 17:45 98.2 F 68 16 114/70 97 Room Air 09/16/23 16:45 96 Room Air 09/16/23 16:45 98.1 F 67 16 125/71 96 Room Air 09/16/23 16:45 Room Air 09/16/23 15:55 Room Air 09/16/23 15:45 98.2 F 76 16 118/59 L 98 Room Air 09/16/23 14:45 98.1 F 69 18 121/95 H 98 Room Air 09/16/23 14:00 Room Air 09/16/23 13:45 79 135/84 96 Room Air 09/16/23 13:15 98.1 F 71 16 122/71 95 Room Air Intake and Output 09/16/23 09/17/23 09/17/23 23:59 07:59 15:59 Intake Total 2100 / 2100 0 / 2100 Output Total 300 / 300 2000 / 2250 250 / 2250 Balance -300 / 550 100 / -150 -250 / -150 Intake: Intake, Oral Amount 600 / 600 Intake, Other Amount 1500 / 1500 Intake, Total IV Amount 0 / 0 Output: Output, Urine Amount 250 / 250 Output, Urine Amount (Catheter) 300 / 300 1999 Cano 300 / 300 1999 Other: Intake, Other Source Saline Solution Laboratory Results - last 24 hr 09/17/23 06:38: WBC 9.8, RBC 3.53 L, Hgb 11.1 L, Hct 31.3 L, MCV 88.6, MCH 31.5 H, MCHC 35.6 H, RDW 14.2, Plt Count 166, MPV 11.1 H, Neut % (Auto) 69.0, Lymph % (Auto) 25.1, [place] % (Auto) 4.2, Eos % (Auto) 1.3, Baso % (Auto) 0.5, Neut # (Auto) 6.7, Lymph # (Auto) 2.5, [place] # (Auto) 0.4, Eos # (Auto) 0.1, Baso # (Auto) 0.1, Sodium 136, Potassium 3.8, Chloride 109 H, Carbon Dioxide 26, Anion Gap 4.8 L, BUN 5 L D, Creatinine 0.50 L D, Estimated Creat Clear 125, Estimated GFR 141, Est GFR ( Amer) 171 D, Glucose 100, Calcium 8.1 L I & O for Labs for Last 24 Hours: Intake & Output 09/14/23 09/15/23 09/16/23 09/17/23 23:59 23:59 23:59 23:59 Intake Total 850 / 850 2100 / 2100 Output Total 300 / 300 2250 / 2250 Balance 550 / 550 -150 / -150 Head: Present atraumatic and normocephalic ENT: Absent mucous membranes moist Neck: Present normal inspection and full ROM Respiratory: Present CTA bilaterally and normal respiratory effort Cardiac: Present Reg Rate and Rhythm GI: Present soft, tenderness (appropriate postop tenderness to palpation) and normal bowel sounds; Absent distention or guarding Comments:: Pfannenstiel incision clean/dry/intact with steri strips in place Rectal (female): Present deferred (female): Present deferred Extremities: Present normal inspection and full ROM; Absent edema or calf tenderness Neuro: Present alert, awake and moves all extremities Assessment and Plan *Assessment and plan (1) S/P SEAN (total abdominal hysterectomy): Problem Comment: s/p left labiaplasty just prior to SEAN Status: Acute Category: Surgical Code(s): Z90.710 - Acquired absence of both cervix and uterus (2) Labia minora hypertrophy: Status: Acute Category: Medical Code(s): N90.60 - Unspecified hypertrophy of vulva (3) History of bilateral salpingectomy: Status: Acute Category: Surgical Code(s): Z90.79 - Acquired absence of other genital organ(s) (4) History of delivery: Problem Comment: x 3 Status: Acute Category: Surgical Code(s): Z98.891 - History of uterine scar from previous surgery (5) Abnormal uterine bleeding: Status: Chronic Category: Medical Code(s): N93.9 - Abnormal uterine and vaginal bleeding, unspecified Plan Doing well postoperatively Continue routine postop care D/c cano cath AM Hgb 11.1 Encouraged increased ambulation Plan d/c home tomorrow, POD # 2
[2023-09-17] MEDS: SIMETHICONE 80MG CHEWABLE TABLET 160 MG PO ×2 (16:06→22:33)
--- NOTE | 2023-09-17 16:14 | PC.NURSE ---
Pt medicated for gas and pain (see mar).
[2023-09-17] MEDS: ENOXAPARIN 40MG/0.4ML SYRINGE 40 MG SQ (22:34)
--- NOTE | 2023-09-18 05:33 | PC.NURSE ---
no acute changes to note from previous assessment. voiding and passing gas. pain managed on oral pain medications as ordered. incision remains open to air, steri strips intact, incision without redness or drainage. no vaginal bleeding noted this shift per patient.
[2023-09-18] MEDS: SENNOSIDES 8.6MG/DOCUSATE 50MG TABLET 1 TAB PO (06:01)
[2023-09-18] MEDS: IBUPROFEN 400 MG TABLET 800 MG PO (06:01)
[2023-09-18] MEDS: SIMETHICONE 80MG CHEWABLE TABLET 160 MG PO (06:02)
[2023-09-18] MEDS: ACETAMINOPHEN 500MG TAB 1000 MG PO (06:02)
[2023-09-18] MEDS: OXYCODONE 5MG IMMEDIATE RELEASE TABLET 5 MG PO (06:03)
[2023-09-18 06:13] VITALS: BP 115/75; PULSE 85; RESP 18; TEMP 36.5; O2SAT 98
[2023-09-18] MEDS: POLYETHYLENE GLYCOL 3350 17 GM PACKET PO (08:10)
[2023-09-18 08:15] VITALS: BP 120/76; PULSE 83; RESP 18; TEMP 36.8; O2SAT 97
--- NOTE | 2023-09-18 08:21 | PC.NURSE ---
Dr. Snider in office, order for follow up visit in 2 weeks. Pt reports she feels comfortable. No needs voiced at this time
[2023-09-18] MEDS: ONDANSETRON 4MG ODT 4 MG SL (08:45)
--- NOTE | 2023-09-18 08:49 | EXP.DC.SUM ---
General Admission date:: 09/16/23 Discharge date: 09/18/23 HPI HPI HPI: POD # 2 s/p Left labiaplasty, Total abdominal hysterectomy She is feeling well. Pain controlled. Voiding without difficulty. Passing flatus. Tolerating regular diet. Denies fever/chills, chest pain and shortness of breath. No lower extremity swelling or calf pain. Ambulating well ad kp. Hospital Course Hospital Course Hospital Course: Ms Carissa Escobar is a 33 yo P3013 who presents to [facility] for scheduled procedure. She complains of abnormal uterine bleeding. She complains of heavy, irregular, painful periods. Sometimes periods occur twice in one month. She has history of laparoscopy, lysis of adhesions for 40 minutes, bilateral salpingectomy, dilation and curettage, unsuccessful hysteroscopy secondary to small cervix, large uterus and uterus fixed in place. History of x 3. She desires definitive surgical intervention with hysterectomy. She also reports left labia minora being longer than right and rubbing on clothing as well as discomfort with intercourse. She admits she has to tuck in left labai minora to help with discomfort. She underwent left labiaplasty and total abdominal hysterectomy on 09/16/23. EBL 150 mL. She did well postoperatively. Pain controlled. Voiding without difficulty and passing flatus. Tolerating regular diet. Denies fever/chills, chest pain and shortness of breath. No headaches, dizziness/lightheadedness or vision changes. Vital signs stable, afebrile. Heart regular rate and rhythm. Lungs clear to auscultation. Abdomen soft, appropriate mild tenderness to palpation postoperatively. No lower extremity swelling. Ambulating well ad kp. Normal hospital course. She was discharged to home on POD # 2 with instructions to follow-up in the office in 2 weeks or sooner if needed. Exam Data for Last 24 hours Vital signs and Labs for Last 24 Hours: Temp Pulse Resp BP Pulse Ox O2 Del Method 98.2 F 83 18 120/76 97 Room Air 09/18/23 08:15 09/18/23 08:15 09/18/23 08:15 09/18/23 08:15 09/18/23 08:15 09/18/23 08:15 I & O for Last 24 hours: Intake & Output 09/15/23 09/16/23 09/17/23 09/18/23 23:59 23:59 23:59 23:59 Intake Total 850 / 850 2100 / 2100 Output Total 300 / 300 2900 / 3100 1100 / 1100 Balance 550 / 550 -800 / -1000 -1100 / -1100 Constitutional Constitutional: no acute distress and cooperative *Routine HEENT Exam Head: Present normocephalic and atraumatic Eye: Absent conjunctivae pink ENT: Present mucous membranes moist *Routine Neck Exam Neck: Present full ROM *Routine Respiratory Exam Respiratory: Present CTA bilaterally and normal respiratory effort *Routine Cardiovascular Exam Cardiovascular: Present RRR *Routine Abdominal Exam Abdominal: Present soft and normoactive bowel sounds; Absent tenderness or distended Comments: Pfannenstiel incision clean/dry/intact, steri strips present *Routine Rectal Exam Patient deferred: visual exam *Routine Exam Patient deferred: external exam *Routine Extremities Exam Extremities: Present full ROM; Absent edema or calf tenderness *Routine Neurological Exam Neurological: Present alert, moving all extremities and normal speech Routine Psychiatric Exam Psychiatric: Present normal affect and cooperative DS: Diagnosis Discharge Diagnosis (1) S/P SEAN (total abdominal hysterectomy): Status: Acute Code(s): Z90.710 - Acquired absence of both cervix and uterus Problem details: s/p left labiaplasty just prior to SEAN (2) Labia minora hypertrophy: Status: Acute Code(s): N90.60 - Unspecified hypertrophy of vulva (3) History of bilateral salpingectomy: Status: Acute Code(s): Z90.79 - Acquired absence of other genital organ(s) (4) History of delivery: Status: Acute Code(s): Z98.891 - History of uterine scar from previous surgery Problem details: x 3 (5) Abnormal uterine bleeding: Status: Chronic Code(s): N93.9 - Abnormal uterine and vaginal bleeding, unspecified Meds Home Medications and Allergies Home Medications ?Medication ?Instructions ?Recorded ?Confirmed ?Type pantoprazole 20 mg tablet,delayed 20 mg PO DAILY 09/09/23 09/16/23 History release ibuprofen 800 mg tablet 800 mg PO Q8H PRN pain #20 tabs 09/18/23 Rx oxycodone 5 mg tablet 5 mg PO Q4HP PRN Moderate Pain 09/18/23 Rx (4-6) #20 tabs polyethylene glycol 3350 17 gram 17 g PO BID 3 days #14 ea 09/18/23 Rx oral powder packet (HealthyLax) New Prescriptions to Start Prescriptions: ibuprofen Anu Snider oxycodone Anu Snider polyethylene glycol 3350 [HealthyLax] Anu Snider Allergies Allergy/AdvReac Type Severity Reaction Status Date / Time No Known Allergies Allergy Verified 09/12/23 10:39 Discharge Plan Disposition Patient Disposition: Home, Self-Care Condition: Good Discharge Order Discharge Orders: Discharge Order (Routine); Ordered 09/18/23 Ordered By: Anu Snider Follow up Plan Follow up with: Anu Snider DO [Staff Physician] - 2 weeks Prescriptions/Medication Reconciliation: New polyethylene glycol 3350 [HealthyLax] 17 gram Powder In Packet 17 g PO BID 3 Days Qty: 14 0RF oxycodone 5 mg Tablet 5 mg PO Q4HP PRN (Reason: Moderate Pain (4-6)) Qty: 20 0RF ibuprofen 800 mg tablet 800 mg PO Q8H PRN (Reason: pain) Qty: 20 0RF Continued pantoprazole 20 mg tablet,delayed release (DR/EC) 20 mg PO DAILY Patient Comments: TAKE 1 TABLET BY MOUTH ONCE DAILY FOR 30 DAYS Problem Reconciliation Problems Reviewed?: Yes Patient Discharge Instructions ACTIVITY: Limited activity DIET: continue same diet and regular diet Additional Instructions: Additional Instructions: You had a total abdominal hysterectomy. This means that your uterus, cervix were removed. The top of your vagina is closed with dissolvable sutures. You will follow-up in office for a postop visit at 2 weeks and at 6 weeks. At your 6-week postop appointment you will have a pelvic exam to ensure your cuff is healing well. Discharge: 1. Take 800 mg Ibuprofen every 8 hours as needed for pain. You can also take 1000 mg of Tylenol in between doses, every 6-8 hours and Oxycodone 5 mg, 1 tablet every 4-6 hours or more as needed. 2. Take Miralax twice daily for the first 3 days then take as needed to keep bowel movements soft. Avoid constipation. Activity: - No lifting more than 10 lbs for 6 weeks. - No driving for 7 days and/or while you are taking narcotic pain medication. - You have three incisions on your abdomen that are closed with stitches and surgical glue. Wound care - You have steri strips covering your incision. These can come off in 7-10 days. - You have stitches under your skin which will dissolve over the next 6 weeks as your body heals - Keep your wound clean and dry, ok to wash with soap and water but pat thoroughly dry Please call the office or return to the ER if you have any of the followin. heavy vaginal bleeding 2. pain that does not respond to your narcotic pain medication 3. dizziness or lightheadedness such that you lose consciousness 4. abnormal discharge from your incisions Questions or concerns: It is my privilege to be your doctor. Please let me know if you have other questions or concerns. Anu Snider DO [facility] Special[facility] [place], [place] [address] Print Language: Lebanese Providers Primary Care Provider: Livan Tran Admit Provider: Anu Snider Attending Provider: Anu Snider
--- NOTE | 2023-09-18 09:30 | PC.NURSE ---
Reviewed and gave copies of DC instructions with patient, Patient verbalized understanding and signatures obtained for DC . Meds to bed to deliver meds to patient. No needs voiced by patient at this time
== END 2023-09-18 10:15 | disposition home or self-care (01) | DRG 743 ==
LOC: OB 10:53
PROVIDERS: Admitting Provider Obstetrics & Gynecology; PCP Family Medicine; Visit Provider Obstetrics & Gynecology
PROC: 0UT90ZZ Resection of Uterus, Open Approach (ICD-10-PCS; CPT 58150; principal; 2023-09-16 07:30)
DX: N93.9 Abnormal uterine and vaginal bleeding, unspecified (principal); K66.0 Peritoneal adhesions (postprocedural) (postinfection); N90.69 Other specified hypertrophy of vulva
CPT/HCPCS: 58150; 56620; 36415; 80048; 81001; 85025; 96374; J3490; C9144; C9290; J0690; J1170; J1650; J1885; J2250; J2550; J3010; J7120; Q0162

== ENCOUNTER 2023-11-26 16:07 | Outpatient (CLI) | payer BC, SELFPAY ==
[2023-11-26 16:28] VITALS: BMI 39.9
[2023-11-26 16:46] LABS: Basophils # 0.1 K/mm3 (0-0.2); Basophils % 1.4 % (0.1-2.0); Eosinophils # 0.4 K/mm3 (0.0-0.4); Eosinophils % 4.9 % (0.1-12.0); Hematocrit 39.2 % (37.0-47.0); Hemoglobin 13.2 g/dL (12.2-16.2); Lymphocytes # 2.8 K/mm3 (0.7-4.5); Lymphocytes % 32.9 % (10-50); Mean Corpuscular HGB Conc 33.6 g/dL (31.8-35.4); Mean Corpuscular Hemoglobin 28.7 pg (27.0-31.2); Mean Corpuscular Volume 85.4 fl (81-99); Mean Platelet Volume 11.7 fl (7.4-10.4); Monocytes # 0.4 K/mm3 (0.1-1.0); Monocytes % 4.1 % (1.7-9.3); Neutrophils # 4.9 K/mm3 (1.8-7.8); Neutrophils % 56.7 % (37.0-80.0); Platelet Count 166 K/mm3 (142-424); Red Blood Count 4.59 M/mm3 (4.20-5.40); Red Cell Distribution Width 13.8 % (11.5-17.5); White Blood Count 8.6 K/mm3 (4.8-10.8)
[2023-11-26 16:54] LABS: Chloride 100 mmol/L (98-107); Sodium 134 mmol/L (136-145)
[2023-11-26 16:55] LABS: Potassium 3.5 mmoL/L (3.5-5.1)
[2023-11-26 16:58] LABS: Anion Gap 12.5 mEq/L (5-15); Blood Urea Nitrogen 8 mg/dl (7-17); Calcium 9.1 mg/dl (8.4-10.2); Carbon Dioxide 25 mmol/L (22.0-30.0); Creatinine Clearance Estimated 155 mL/min (50-200); Estimated Glomerular Filt Rate 82 ml/min (>60); GFR (African American) 99 ML/MIN (>60); Glucose 85 mg/dl (74-100)
== END 2023-11-26 23:59 | disposition home or self-care (01) ==
LOC: PREOP 16:09
PROVIDERS: Nurse Anesthetist, Certified Registered; PCP Family Medicine; Visit Provider Obstetrics & Gynecology
DX: N90.60 Unspecified hypertrophy of vulva (principal)
CPT/HCPCS: 80048; 85025

== ENCOUNTER 2023-11-29 05:53 | Day surgery (SDC) | payer BC, SELFPAY ==
[2023-11-26 12:50] VITALS: BMI 38.4
[2023-11-29] VITALS (10 sets, daily range): BP systolic 104–141; BP diastolic 56–89; PULSE 54–83; RESP 16–18; TEMP 36.1–36.4; O2SAT 98–100
[2023-11-29] MEDS: ACETAMINOPHEN 500MG TAB 1000 MG PO (06:16)
[2023-11-29] MEDS: LACTATED RINGERS 1000ML 1,000 ML 25 ML IV (06:17)
--- NOTE | 2023-11-29 06:38 | P.PNANES_ITS ---
[facility] Disclaimer: The information contained in this section may have been updated after the patient was seen, as this information can be updated by other users. Medical History Intra-abdominal adhesions History of adhesions with last surgery Labia minora hypertrophy GERD (gastroesophageal reflux disease) Abnormal uterine bleeding Herpes simplex labialis Surgical History S/P SEAN (total abdominal hysterectomy) s/p left labiaplasty just prior to SEAN History of bilateral salpingectomy History of delivery x 3 H/O dilation and curettage H/O myringotomy Family History Other Family history of diabetes mellitus type II Family history of heart attack Social History (Updated 11/29/23 @ 06:27 by Deanna Elias RN) Smoking Status: Never smoker second hand exposure: No alcohol intake: never substance use type: denies use current occupational status: employed Travel in the last 8 weeks: None current occupational exposures/hazards: No caffeine: Yes [facility] Anesthesia Checklist Patient Identification Patient Identification: Arm Band and Family Structural Data Admitted From: Home Planned Operative Procedure/s: Labiaplasty revision Consent for Planned Operative Procedure(s) Verified: Yes Verified Documents: Surgical Consent and History and Physical NPO Status Verified Time NPO: 00:00 Additional verifications Patient : No Anesthesia Reactions: No Hx Blood Transfusions: No Blood Transfusion Reaction: No ( COLD SORES ) Cephalosporin Allergy: No Previous Colonoscopy: No Airway Assessment Mallampati Score:: Class III C-Spine Mobility Assessed: Yes TMJ Mobility Assessed: Yes Dentition: Good Dentition Neurological Assessment Level of Consciousness: Awake, Alert, Appropriate and Follows Commands Hx Seizures: No Numbness or tingling in extremities: No Anesthesia Plan Anesthesia Risk discussed: Yes ASA Class: I Anesthesia Type: General
--- NOTE | 2023-11-29 08:24 | P.PNANES_ITS ---
[facility] Anesthesia Record Part I Anesthesia Record I Intake, IV Amount: 900 Hydration: Adequate Estimated blood loss (mL): 20 Urine output (mL): 0 Blood Pressure: 110/60 SaO2: 99 Pulse Rate: 83 Airway Patency: Patent Respiratory Rate: 16 Temperature: 97.5 F Patient is:: Awake and Stable Stable to PACU at:: 08:24
--- NOTE | 2023-11-29 08:33 | P.OP_ITS ---
Date of procedure: 11/29/23 Pre-op Diagnosis:: 1. Left labia minora hypertrophy Post-op Diagnosis:: 1. Left labia minora hypertrophy Procedure performed:: Revision of left labiaplasty Surgeon:: Anu Snider DO Metal Ceiling Hanger(s):: N/a [employer] OPERATOR:: Jong Kellogg Anesthesia: GETA Estimated blood loss (mL): 30 Clinical Note:: Ms Carissa Escobar is a 33 yo P3013 who presents to [facility] for scheduled procedure. She had a left labiaplasty on 09/16/23 for left labia minora hypertrophy. She states left labia minora still feels a little swollen and too long but not painful. She still has to tuck it in. Operative findings:: 1. Mild left labia minora hypertrophy with extra fold of skin between labia minora and majora extending from prepuce to frenulum. Operative note:: Risks, benefits and alternatives were discussed with the patient. Risks include but are not limited to bleeding, infection, and VTE. Patient voiced understanding and agreed to proceed. She was wheeled back to the operating room and placed under general anesthesia without difficulty. She was placed in dorsal lithotomy position and prepped and draped in the normal sterile fashion. Allis clamp was used to grasp left labia minora. Extra fold of skin present on left that is not present on right side. Skin fold was excised from prepuce to frenulum. Skin removed measured approximately 5 cm x 1 cm. Skin was reapproximated with 3-0 Vicryl suture. Minimal oozing present at the end of the case. Patient was awaken from anesthesia without difficulty. She was transported to recovery room in stable condition. Patient will be discharged home when awake and ambulating. She was also given instructions to follow-up in the office in 2 weeks. Condition: stable Disposition: same day Specimens:: None Complications:: None
[2023-11-29] MEDS: MORPHINE 2MG/ML SYRINGE 2 MG IV ×2 (08:34→08:45)
--- NOTE | 2023-11-29 11:50 | P.PNANES_ITS ---
[facility] Anesthesia Record Part II Anesthesia Record Part II Discharge Time: 08:50 Destination: Surgical Day Care (OP Surgery) PACU nurse assessment reviewed?: Yes Patient Condition:: Good Anesthesia Complications:: None Swallowing reflex intact?: Yes Airway Patency: Patent Cyanosis?: No Blood Pressure: 133/82 SaO2: 100 Respiratory Rate: 18 Pulse Rate: 63 Temperature: 97.5 F Mental Status: Alert & Oriented Pain level:: 4 Nausea and/or vomitting:: None Intake, IV Amount: 0 Hydration: Adequate
== END 2023-11-29 09:30 | disposition home or self-care (01) ==
PROVIDERS: PCP Family Medicine; Visit Provider Obstetrics & Gynecology
PROC: (CPT 56620; principal; 2023-11-29 07:30)
DX: N90.60 Unspecified hypertrophy of vulva (principal)
CPT/HCPCS: 56620; J1100; J1885; J2250; J2270; J2405; J3010; J7120

== ENCOUNTER 2024-05-03 19:29 | Emergency (ER) | payer BC, SELFPAY ==
[2024-05-03 19:41] VITALS: BP 155/83; PULSE 67; RESP 18; TEMP 37; O2SAT 98; BMI 35.5
--- NOTE | 2024-05-03 19:50 | XR_ITS ---
PROCEDURE INFORMATION: Exam: XR Left Ankle Exam date and time: 05/03/2024 7:56 PM Age: 34 years old Clinical indication: Injury or trauma; Other: Stepped in hole/lateral pain; Additional info: Stepped in hole, twisted left ankle, lateral pain TECHNIQUE: Imaging protocol: Radiologic exam of the left ankle. Views: 3 or more views. COMPARISON: CR XR ANKLE LT MIN 3V 05/03/2024 7:56 PM FINDINGS: Bones/joints: Minimally displaced avulsion fracture of the distal tip of the fibula with moderate soft tissue swelling. Intermediate sized enthesophytes involving the calcaneus. Soft tissues: See Bones/joints finding. IMPRESSION: Minimally displaced avulsion fracture of the distal tip of the fibula with moderate soft tissue swelling.
--- NOTE | 2024-05-03 19:50 | XR_ITS ---
PROCEDURE INFORMATION: Exam: XR Left Foot Exam date and time: 05/03/2024 7:56 PM Age: 34 years old Clinical indication: Injury or trauma; Other: Stepped in hole/lateral pain TECHNIQUE: Imaging protocol: Radiologic exam of the left foot. Views: 3 or more views. COMPARISON: CR XR ANKLE LT MIN 3V 05/03/2024 7:56 PM FINDINGS: Bones/joints: Minimally displaced avulsion fracture of the distal tip of the fibula with moderate soft tissue swelling. Intermediate sized enthesophytes involving the calcaneus. Soft tissues: See Bones/joints finding. IMPRESSION: Minimally displaced avulsion fracture of the distal tip of the fibula with moderate soft tissue swelling.
--- NOTE | 2024-05-03 19:59 | ED_ITS ---
<Statement entered by Renan Soares MD - 05/03/24 23:10> I was consulted by the PAIGE, and we discussed the complexity of the problems being addressed. I approved the treatment and management plan for this patient's care in the emergency department, thus performing a substantive portion of the medical decision making. Renan Soares MD, DEWAYNE, FACEP Discharge Plan Disposition Patient Disposition: Home, Self-Care Condition: Good Prescriptions Prescriptions: No Action pantoprazole [Protonix] 20 mg tablet,delayed release (DR/EC) 20 mg PO DAILY Patient Comments: TAKE 1 TABLET BY MOUTH ONCE DAILY FOR 30 DAYS Referrals Follow up/Referrals: Livan Tran MD [Primary Care Provider] - See instructions Rakesh Berman DO [Staff Physician] - See instructions Activity Restrictions/Add. Instructions Additional Instructions/Restrictions: Today your evaluated in the emergency department and diagnosed with a left ankle sprain. Please wear the walking boot for at least 1 week, follow-up with orthopedics as we discussed. You may take acetaminophen and ibuprofen [id number] for symptomatic relief. Elevate left lower extremity. Ice the area 3-4 times a day 20 minutes at a time. Return to the ED for any worsening of your condition. No running, jumping, heavy lifting until evaluated further. Clinical Impressions Clinical Impression: Left ankle sprain Qualifiers: Encounter type: initial encounter Involved ligament of ankle: unspecified ligament Qualified Code(s): S93.402A - Sprain of unspecified ligament of left ankle, initial encounter Instructions Patient Instructions: DI for Ankle Sprain Print Language Print Language: Albanian Discharge ED Provider: Renan Soares General Adult HPI General Chief complaint: Extremity Injury, Lower Stated complaint: AO 05/02/24 1300 Injury left ankle Time Seen by Provider: 05/03/24 19:49 Mode of Arrival: Ambulatory Source of Information: Patient Description of Symptoms (Recalled from ER Triage Doc. by RN): Pt presents for eval of left ankle pain. Pt states was walking and rolled her ankle in a hole yesterday. Pt felt a popping sensation in her ankle. History of Present Illness HPI narrative: Patient is a 34-year-old female with no significant PMHx who presents to the ED after stepping in a hole with her left foot yesterday, rolling her left ankle inward. Patient states she has previously sprained this ankle in the past. Related Data Home Medications ?Medication ?Instructions ?Recorded ?Confirmed pantoprazole 20 mg tablet,delayed 20 mg PO DAILY 09/09/23 05/03/24 release (Protonix) Allergies Allergy/AdvReac Type Severity Reaction Status Date / Time No Known Allergies Allergy Verified 05/03/24 19:45 [facility] Disclaimer: The information contained in this section may have been updated after the patient was seen, as this information can be updated by other users. Medical History Intra-abdominal adhesions History of adhesions with last surgery Labia minora hypertrophy GERD (gastroesophageal reflux disease) Abnormal uterine bleeding Herpes simplex labialis Surgical History S/P SEAN (total abdominal hysterectomy) s/p left labiaplasty just prior to SEAN History of bilateral salpingectomy History of delivery x 3 H/O dilation and curettage H/O myringotomy Family History Other Family history of diabetes mellitus type II Family history of heart attack Social History Smoking Status: Never smoker second hand exposure: No alcohol intake: never substance use type: denies use current occupational status: employed Travel in the last 8 weeks: None current occupational exposures/hazards: No caffeine: Yes Have you lived/traveled outside US in past 30 days?: No Contact w/someone who lives/traveled outside US past 30 days?: No Exposure to someone with infectious disease in past 14 days?: No Do you have a fever (greater than 100.4 F or 38 C)?: No Have you tested positive for COVID-19: No Exposed to someone with COVID-19 in past 14 days?: No Do you have a sore throat?: No Do you have a cough?: No Do you have any weakness?: No Do you have any diarrhea?: No Are you experiencing any unusual bleeding?: No Do you have any muscle aches/pain?: No Do you have any abdominal pain?: No Are you experiencing loss of taste or smell?: No Other Medical History Have you received the Flu Vaccine for this season: No Have you received the Pneumonia Vaccine: No ROS Obtained: Yes Systems reviewed as appropriate & no additional complaints except as documented Physical Exam General General appearance: alert and in no apparent distress Head Head exam: atraumatic and normocephalic Eye Eye exam: Present normal appearance and PERRL ENT ENT exam: Present normal exam Neck Neck exam: Present normal inspection Chest Chest inspection: Present normal inspection and symmetric chest wall rise; Absent tenderness Respiratory Respiratory exam: Present normal lung sounds bilaterally Cardiovascular Cardiovascular exam: Present regular rate Abdominal Exam Abdominal exam: Present soft and normal bowel sounds; Absent tenderness Extremities Exam Extremities exam: Present full ROM and other (left ankle remarkable for lateral edema, tenderness, lateral foot tenderness. Pulses intact. ) Back Exam Back exam: Present normal inspection and full ROM Neurological Exam Neurological exam: Present alert and oriented X3 Psychiatric Psychiatric exam: Present normal affect and normal mood Skin Skin exam: Present warm and dry Medical Decision Making Medical Records Screening: Per USPSTF and CDC recommendations, given the prevalence of disease in our region, it is our hospital?s policy to screen for HIV and viral Hepatitis for all patients aged 18 and over and those with ongoing risk factors. Andrae Inquiry Pt receiving controlled substance: No Andrae was queried for this patient: No Vital Signs: 05/03/24 19:41 05/03/24 21:11 Temperature 98.6 F Temperature Source Temporal Artery Scan Pulse Rate [Left Dorsalis Pedis] 80 Pulse Rate [Right] 67 Respiratory Rate 18 Blood Pressure [Right Arm] 155/83 H Blood Pressure Mean [Right Arm] 107 Blood Pressure Source [Right Arm] Automatic Cuff Blood Pressure Position [Right Arm] Sitting 02 Sat by Pulse Oximetry 98 Oxygen Delivery Method Room Air Orders (Tests/Meds): ED MEDICATIONS Discontinued Medications Generic Name Dose Route Start Last Admin Trade Name Alida PRN Reason Stop Dose Admin Ibuprofen 600 mg 05/03/24 19:50 05/03/24 20:02 Ibuprofen 600 Mg Tablet PO 05/03/24 19:51 600 mg ONCE ONE Administration ORDERS Category Date Time Status Ankle XR - Left minimum 3 Views [XR ankle LT min 3V] Exams 05/03/24 19:50 Taken Stat Foot XR left minimum 3 views [XR foot LT min 3V] Stat Exams 05/03/24 19:50 Taken Medical Decision Narrative: In summary, patient is a 34-year-old female with no significant PMHx who presents to the ED after stepping in a hole with her left foot yesterday, rolling her left ankle inward. Patient states she has previously sprained this ankle in the past. She has not taken anything for pain within the past 4 hours. Has been using [id number] pain medication with minimal relief. Patient has been wearing a support brace on her left ankle which she states does minimally help with the pain. She has been ambulatory however with pain. Denies any other complaints at this time. Denies numbness, color change, decreased mobility. Upon initial evaluation patient is alert, oriented and cooperative. She is hemodynamically stable. I removed the left ankle brace, left ankle remarkable for lateral edema, tenderness, lateral foot tenderness. Pulses intact. Patient has full range of motion however with pain. Discussed that we will obtain left foot and left ankle x-ray. Patient symptomatically managed with ibuprofen 600 mg tablet. Independently and informally interpreted the left foot and left ankle x-ray as no acute fracture on my read. I discussed with patient that she is sprained her left ankle. Pt given walking boot, advised to follow up with Dr. Berman in 1 week if no improvement. Continue to take acetaminophen and ibuprofen [id number] for symptomatic relief. Elevate the left ankle. Use ice 3 times a day 20 minutes at a time. No running, jumping, heavy lifting until evaluated further. Critical Care Critical Care Time Critical Care Time: No
[2024-05-03] MEDS: IBUPROFEN 600 MG TABLET PO (20:02)
[2024-05-03 21:11] VITALS: PULSE 80
[2024-05-03 21:16] VITALS: BP 128/87; PULSE 87; RESP 20; TEMP 36.3; O2SAT 98
== END 2024-05-03 21:18 | disposition home or self-care (01) ==
PROVIDERS: Emergency Provider Student in an Organized Health Care Education/Training Program; PCP Family Medicine
DX: S93.402A Sprain of unspecified ligament of left ankle, initial encounter (principal); X50.0XXA Overexertion from strenuous movement or load, initial encounter
CPT/HCPCS: 73610; 73630; 99283

== ENCOUNTER 2024-05-20 12:16 | Outpatient (CLI) | payer BC, SELFPAY ==
--- NOTE | 2024-05-20 12:18 | XR_ITS ---
FINAL REPORT CLINICAL HISTORY: lt ankle pain; avulsion fracture distal fibula COMPARISON: 05/03/2024 FINDINGS: Three views of the left ankle show a transverse fracture of the tip of the lateral malleolus, similar to the prior study with minimal displacement. The ankle mortise is intact. There is improved soft tissue swelling. IMPRESSION: No significant change in minimally displaced lateral malleolar fracture. Reviewed, Interpreted and Dictated by Tk Brito MD Transcribed by Bernadine Freed Authenticated and [facility]
== END 2024-05-20 23:59 | disposition home or self-care (01) ==
LOC: RAD 12:17
PROVIDERS: PCP Family Medicine; Visit Provider Physician Assistant
DX: M25.572 Pain in left ankle and joints of left foot (principal); S82.832A Other fracture of upper and lower end of left fibula, initial encounter for closed fracture
CPT/HCPCS: 73610

== ENCOUNTER 2024-05-20 13:27 | Outpatient (RCR) | payer BC, SELFPAY | END 2024-05-20 23:59 | disposition home or self-care (01) | LOC: PT 13:27 | PROVIDERS: Visit Provider Family Medicine | DX: S82.832A Other fracture of upper and lower end of left fibula, initial encounter for closed fracture (principal) | CPT/HCPCS: 97760 ==

== ENCOUNTER 2024-06-10 12:14 | Outpatient (CLI) | payer BC, SELFPAY ==
--- NOTE | 2024-06-10 12:17 | XR_ITS ---
FINAL REPORT CLINICAL HISTORY: Left ankle fx COMPARISON: 05/20/2024 FINDINGS: AP, oblique, and lateral views of the left ankle were obtained. There has been no significant interval change in the appearance of the fracture at the tip of the lateral malleolus. No new osseous abnormality identified. The ankle mortise is intact. There is mild persistent lateral soft tissue edema. IMPRESSION: No significant interval change lateral malleolar fracture. Reviewed, Interpreted and Dictated by Lenore Call MD Transcribed by Bernadine Freed Authenticated and [facility]
== END 2024-06-10 23:59 | disposition home or self-care (01) ==
LOC: RAD 12:15
PROVIDERS: PCP Nurse Practitioner Family; Visit Provider Physician Assistant
DX: S82.832D Other fracture of upper and lower end of left fibula, subsequent encounter for closed fracture with routine healing (principal)
CPT/HCPCS: 73610